=== PATIENT | male | born 1985 | race Two or more races ===

== ENCOUNTER 2017-06-05 12:36 | Inpatient (IN) | payer MEDICAID, OTHER ==
[~2017-06-05] VITALS: Ht 182.9 cm; Wt 83.1 kg
[2017-06-05] VITALS (8 sets, daily range): BP systolic 87–114; BP diastolic 54–79
[~2017-06-05 12:36] MED LIST: HYDR-569 PO; LINE600T6 PO; METH-603 PO; SULF1TAB48 PO
[2017-06-05] MEDS ORDERED: piperacillin/tazo 3.375gm/50ml 50 ML IV ONE (12:50)
[2017-06-05] MEDS ORDERED: normal saline 1000ML IV soln IV ONE ×2 (12:50→14:00)
[2017-06-05] MEDS ORDERED: vancomycin/NS 1 GM ADD-VANTAGE 250 ML IV ONE (12:50)
[2017-06-05 13:32] LABS: BASOPHILS % (AUTO) 0 % (0-1); EOSINOPHILS # (AUTO) 0.1 X10'3 (0-0.9); EOSINOPHILS % (AUTO) 0.3 % (0-6); HEMATOCRIT 26.3 % (42.0-52.0); HEMOGLOBIN 8.8 g/dl (14.0-17.9); LYMPHOCYTES % (AUTO) 4.9 % (21-51); MEAN CORPUSCULAR HEMOGLOBIN 28.8 PG (27.0-31.0); MEAN CORPUSCULAR HGB CONC 33.3 % (33.0-36.5); MEAN CORPUSCULAR VOLUME 86.4 FL (78-98); MEAN PLATELET VOLUME 10.8 FL (7.4-10.4); MONOCYTES # (AUTO) 0.1 X10'3 (0-0.9); MONOCYTES % (AUTO) 0.8 % (2-12); NEUTROPHILS # (AUTO) 18.4 X10'3 (1.8-7.7); RED BLOOD COUNT 3.04 X10'6 (4.70-6.10); RED CELL DISTRIBUTION WIDTH 20.3 % (11.5-14.5); WHITE BLOOD COUNT 19.5 X10'3 (4.5-11.0)
[2017-06-05 13:46] LABS: ALANINE AMINOTRANSFERASE 23 U/L (12-78); ALBUMIN 1.4 G/DL (3.4-5.0); ALBUMIN/GLOBULIN RATIO 0.4 (1.1-1.5); ALKALINE PHOSPHATASE 239 IU/L (46-116); ANION GAP 16 (8-16); ASPARTATE AMINO TRANSFERASE 25 U/L (10-37); BILIRUBIN,TOTAL 2.6 MG/DL (0.1-1.0); BLOOD UREA NITROGEN 40 MG/DL (7-18); BUN/CREATININE RATIO 18.4 (5.4-32.0); CALCIUM 6.6 MG/DL (8.5-10.1); CHLORIDE 104 MMOL/L (99-107); CREATININE 2.17 MG/DL (0.60-1.10); GLUCOSE 78 MG/DL (70-104); SODIUM 138 MMOL/L (135-145); TOTAL CARBON DIOXIDE 17.6 MMOL/L (24-32); TOTAL PROTEIN 5.4 G/DL (6.4-8.2); eGFR 36 ML/MIN
[2017-06-05 13:55] LABS: PLATELET COUNT 25 X10'3 (140-440); POTASSIUM 2.4 MMOL/L (3.5-5.1)
[2017-06-05 13:58] LABS: INR 1.4 INR; PARTIAL THROMBOPLASTIN TIME 44 SECONDS (22-32); PROTHROMBIN TIME 14.1 SECONDS (9.0-12.0)
[2017-06-05] MEDS ORDERED: normal saline 1000ML IV soln IVB ONE (14:10)
[2017-06-05 14:48] LABS: ETHANOL < 0.010 GM/DL (0.0-0.010)
[2017-06-05 14:56] LABS: ANISOCYTOSIS 2+; NUCLEATED RED BLOOD CELLS 1 /100WBC (0-0); PLATELET ESTIMATE DECREASED; TOTAL CELLS COUNTED 100; TOXIC GRANULATION 4+; TOXIC VACUOLATION 4+
[2017-06-05 14:58] LABS: BURR CELLS 3+; POIKILOCYTOSIS 2+
[2017-06-05 15:00] LABS: ELLIPTOCYTES 1+; SMUDGE CELLS 2+
[2017-06-05 15:01] LABS: TARGET CELLS 1+
[2017-06-05] MEDS: NORepinephrine 8mg/ 250ml NS 250 ML IV SCH ×2 (15:11→15:51)
[2017-06-05] MEDS: potassium 10mEq/100ml NS w/LIDOcaine (10mg/bag) IV SCH ×2 (15:50→16:20)
[2017-06-05 17:29] LABS: CLARITY,URINE Cloudy (Clear); COLOR,URINE Dark Yellow (Yellow); GLUCOSE, URINE Negative (Neg); KETONES,URINE Trace mg/dl (Neg); LEUKOCYTE ESTERASE ,URINE Small (Neg); NITRITES, URINE Negative (Neg); OCCULT BLOOD,URINE Negative (Neg); PROTEIN,URINE 100 mg/dl (Neg)
[2017-06-05] MEDS ORDERED: BUPR1FIL3 SL (17:29)
[2017-06-05 17:30] LABS: UA COLLECTION TYPE NON-SPECIFIED
[2017-06-05 17:31] LABS: URINE AMPHETAMINE SCREEN POSITIVE (Neg); URINE BARBITUATE SCREEN NEGATIVE (Neg); URINE BENZODIAZEPINES SCREEN NEGATIVE (Neg); URINE CANNABINOID SCREEN NEGATIVE (Neg); URINE COCAINE SCREEN NEGATIVE (Neg); URINE METHADONE SCREEN NEGATIVE (Neg); URINE OPIATE SCREEN POSITIVE (Neg); URINE PHENCYCLIDINE SCREEN NEGATIVE (Neg)
[2017-06-05 17:41] LABS: BACTERIA,URINE NONE SEEN /HPF (Neg); RBC,URINE NONE SEEN /HPF (0-2); SQUAMOUS EPITHELIAL CELL,UR FEW /LPF (FEW)
[2017-06-05] MEDS ORDERED: magnesium Cl slow-release 64mg tablet PO PRN (17:45)
[2017-06-05] MEDS ORDERED: potassium Cl 20 mEq SR tablet PO PRN (17:45)
[2017-06-05] MEDS ORDERED: potassium Cl 40MEQ/250ML bag 250 ML IV PRN ×2 (17:45)
[2017-06-05] MEDS ORDERED: magnesium 4gm in 100ml NS 100 ML IV PRN (17:45)
[2017-06-05] MEDS ORDERED: magnesium 2GM in 50ml NS 50 ML IV PRN (17:45)
[2017-06-05] MEDS ORDERED: vancomycin/NS 1 GM ADD-VANTAGE 250 ML IV SCH (20:00)
[2017-06-05] MEDS: buprenorphine/naloxone 2-0.5mg sublingual tablet SL SCH (20:00)
[2017-06-05] MEDS: hydrocortisone sod succ/PF 100mg/2ml inj. IV SCH (21:28)
[2017-06-06] VITALS (23 sets, daily range): BP systolic 91–142; BP diastolic 46–91
[2017-06-06] MEDS: mag hydrox/Alum hydrox/simeth 30ml oral suspension PO PRN ×3 (00:02→14:55)
[2017-06-06] MEDS ORDERED: vancomycin inj 1,250 MG in normal saline 250ml IV soln 250 ML IV SCH (01:00)
[2017-06-06] MEDS: hydrocortisone sod succ/PF 100mg/2ml inj. IV SCH ×2 (02:09→08:09)
[2017-06-06 04:14] LABS: % IRON SATURATION 21 % (11-46); ALANINE AMINOTRANSFERASE 23 U/L (12-78); ALBUMIN 1.7 G/DL (3.4-5.0); ALBUMIN/GLOBULIN RATIO 0.3 (1.1-1.5); ALKALINE PHOSPHATASE 144 IU/L (46-116); ANION GAP 9 (8-16); ASPARTATE AMINO TRANSFERASE 26 U/L (10-37); BILIRUBIN,TOTAL 2.5 MG/DL (0.1-1.0); BLOOD UREA NITROGEN 35 MG/DL (7-18); BUN/CREATININE RATIO 23.2 (5.4-32.0); CALCIUM 7.1 MG/DL (8.5-10.1); CHLORIDE 104 MMOL/L (99-107); CREATININE 1.51 MG/DL (0.60-1.10); GLUCOSE 131 MG/DL (70-104); IRON 39 UG/DL (53-167); MAGNESIUM 1.6 MG/DL (1.5-2.4); POTASSIUM 3.8 MMOL/L (3.5-5.1); SODIUM 135 MMOL/L (135-145); TOTAL CARBON DIOXIDE 21.9 MMOL/L (24-32); TOTAL IRON BINDING CAPACITY 185 UG/DL (259-388); eGFR 55 ML/MIN
[2017-06-06 04:29] LABS: FERRITIN 263 NG/ML (26-388)
[2017-06-06 05:18] LABS: BASOPHILS # (AUTO) 0.1 X10'3 (0-0.2); BASOPHILS % (AUTO) 0.3 % (0-1); EOSINOPHILS # (AUTO) 0.4 X10'3 (0-0.9); EOSINOPHILS % (AUTO) 1.5 % (0-6); HEMATOCRIT 26.7 % (42.0-52.0); HEMOGLOBIN 8.8 g/dl (14.0-17.9); LYMPHOCYTES # (AUTO) 2.4 X10'3 (1.1-4.8); LYMPHOCYTES % (AUTO) 9.3 % (21-51); MEAN CORPUSCULAR HEMOGLOBIN 28.7 PG (27.0-31.0); MEAN CORPUSCULAR HGB CONC 33.1 % (33.0-36.5); MEAN CORPUSCULAR VOLUME 86.5 FL (78-98); MEAN PLATELET VOLUME 14.2 FL (7.4-10.4); MONOCYTES # (AUTO) 0.4 X10'3 (0-0.9); MONOCYTES % (AUTO) 1.6 % (2-12); NEUTROPHILS # (AUTO) 22.4 X10'3 (1.8-7.7); NEUTROPHILS % (AUTO) 87.3 % (42-75); RED BLOOD COUNT 3.08 X10'6 (4.70-6.10); RED CELL DISTRIBUTION WIDTH 20.6 % (11.5-14.5)
[2017-06-06 05:31] LABS: WHITE BLOOD COUNT 25.7 X10'3 (4.5-11.0)
[2017-06-06 05:32] LABS: PLATELET COUNT 43 X10'3 (140-440)
[2017-06-06 06:30] LABS: ANISOCYTOSIS 3+; HYPOCHROMASIA 1+; MICROCYTOSIS 1+; PLATELET ESTIMATE DECREASED; TOTAL CELLS COUNTED 100
[2017-06-06 06:31] LABS: ELLIPTOCYTES FEW; SMUDGE CELLS 1+; TARGET CELLS 1+
[2017-06-06] MEDS: NORepinephrine 8mg/ 250ml NS 250 ML IV SCH (07:52)
[2017-06-06] MEDS: K, MAG and/or Phos replacement - Verify level? MC SCH (07:54)
[2017-06-06] MEDS: buprenorphine/naloxone 2-0.5mg sublingual tablet SL SCH (08:09)
[2017-06-06] MEDS: piperacillin/tazo 3.375gm/50ml 50 ML IV SCH ×3 (08:58→19:35)
[2017-06-06] MEDS: acetaminophen 325mg tablet PO PRN (09:45)
[2017-06-06] MEDS: lactobacillus rhamnosus 10,000 MMU CELLS/CAPSULE PO SCH (17:14)
[2017-06-07] VITALS (24 sets, daily range): BP systolic 84–164; BP diastolic 42–93
[2017-06-07] MEDS ORDERED: VANCOMYCIN LEVEL IV NR (00:30)
[2017-06-07] MEDS ORDERED: VANCOMYCIN LEVEL IV ONE (00:30)
[2017-06-07] MEDS: piperacillin/tazo 3.375gm/50ml 50 ML IV SCH ×2 (01:37→07:56)
[2017-06-07] MEDS: mag hydrox/Alum hydrox/simeth 30ml oral suspension PO PRN (03:01)
[2017-06-07 03:37] LABS: ALANINE AMINOTRANSFERASE 16 U/L (12-78); ALBUMIN 1.6 G/DL (3.4-5.0); ALBUMIN/GLOBULIN RATIO 0.3 (1.1-1.5); ALKALINE PHOSPHATASE 113 IU/L (46-116); ANION GAP 9 (8-16); ASPARTATE AMINO TRANSFERASE 16 U/L (10-37); BILIRUBIN,TOTAL 1.3 MG/DL (0.1-1.0); BLOOD UREA NITROGEN 34 MG/DL (7-18); BUN/CREATININE RATIO 24.5 (5.4-32.0); CALCIUM 7.3 MG/DL (8.5-10.1); CHLORIDE 103 MMOL/L (99-107); CREATININE 1.39 MG/DL (0.60-1.10); GLUCOSE 121 MG/DL (70-104); MAGNESIUM 1.6 MG/DL (1.5-2.4); POTASSIUM 3.2 MMOL/L (3.5-5.1); SODIUM 136 MMOL/L (135-145); TOTAL CARBON DIOXIDE 24.3 MMOL/L (24-32); TOTAL PROTEIN 6.6 G/DL (6.4-8.2); eGFR 60 ML/MIN
[2017-06-07 03:48] LABS: BASOPHILS # (AUTO) 0.1 X10'3 (0-0.2); BASOPHILS % (AUTO) 0.4 % (0-1); EOSINOPHILS # (AUTO) 0.1 X10'3 (0-0.9); EOSINOPHILS % (AUTO) 0.9 % (0-6); HEMATOCRIT 23.9 % (42.0-52.0); HEMOGLOBIN 7.9 g/dl (14.0-17.9); LYMPHOCYTES # (AUTO) 1.7 X10'3 (1.1-4.8); LYMPHOCYTES % (AUTO) 13.2 % (21-51); MEAN CORPUSCULAR HEMOGLOBIN 28.6 PG (27.0-31.0); MEAN CORPUSCULAR HGB CONC 33.2 % (33.0-36.5); MEAN PLATELET VOLUME 12.7 FL (7.4-10.4); MONOCYTES # (AUTO) 0.3 X10'3 (0-0.9); MONOCYTES % (AUTO) 2.2 % (2-12); NEUTROPHILS # (AUTO) 10.7 X10'3 (1.8-7.7); NEUTROPHILS % (AUTO) 83.3 % (42-75); RED BLOOD COUNT 2.78 X10'6 (4.70-6.10); RED CELL DISTRIBUTION WIDTH 21.3 % (11.5-14.5); WHITE BLOOD COUNT 12.8 X10'3 (4.5-11.0)
[2017-06-07 03:54] LABS: PLATELET COUNT 39 X10'3 (140-440)
[2017-06-07] MEDS: potassium Cl 20 mEq SR tablet PO PRN ×2 (04:02→20:47)
[2017-06-07] MEDS: lactobacillus rhamnosus 10,000 MMU CELLS/CAPSULE PO SCH ×3 (07:56→17:21)
[2017-06-07] MEDS: K, MAG and/or Phos replacement - Verify level? MC SCH (07:57)
[2017-06-07] MEDS: levoFLOXACIN-Levaquin 500mg/D5 100 ML IV SCH (10:26)
[2017-06-07] MEDS: buprenorphine/naloxone 2-0.5mg sublingual tablet SL SCH (13:32)
[2017-06-07 16:15] LABS: CREATININE,URINE RANDOM 63.3 MG/DL
[2017-06-07 16:17] LABS: CLARITY,URINE CLEAR (Clear); COLOR,URINE YELLOW (Yellow); GLUCOSE, URINE NEGATIVE (Neg); KETONES,URINE NEGATIVE (Neg); LEUKOCYTE ESTERASE ,URINE NEGATIVE (Neg); NITRITES, URINE NEGATIVE (Neg); OCCULT BLOOD,URINE SMALL (Neg); PH,URINE 5.5 (4.8-8.0); PROTEIN,URINE NEGATIVE (Neg); UA COLLECTION TYPE NON-SPECIFIED; UROBILINOGEN,URINE 0.2 E.U/dL (0.2-1.0)
[2017-06-07 16:18] LABS: BACTERIA,URINE FEW /HPF (Neg); SQUAMOUS EPITHELIAL CELL,UR FEW /LPF (FEW); WBC,URINE 0-4 /HPF (0-4)
[2017-06-07] MEDS: acetaminophen 325mg tablet PO PRN (16:31)
[2017-06-07 16:44] LABS: UA EOSINOPHILS NO EOS /HPF
[2017-06-07] MEDS ORDERED: ibuprofen tablet 400 MG TABLET PO ONE (17:45)
[2017-06-07] MEDS ORDERED: NORepinephrine 8mg/ 250ml NS 250 ML IV SCH (20:35)
[2017-06-07] MEDS ORDERED: NORepinephrine 8mg/ 250ml NS 250 ML IV ONE (20:35)
[2017-06-08] VITALS (24 sets, daily range): BP systolic 80–133; BP diastolic 39–84
[2017-06-08 03:44] LABS: BASOPHILS # (AUTO) 0.2 X10'3 (0-0.2); BASOPHILS % (AUTO) 0.8 % (0-1); EOSINOPHILS # (AUTO) 0.3 X10'3 (0-0.9); EOSINOPHILS % (AUTO) 1.3 % (0-6); HEMATOCRIT 23.7 % (42.0-52.0); HEMOGLOBIN 7.9 g/dl (14.0-17.9); LYMPHOCYTES # (AUTO) 2.7 X10'3 (1.1-4.8); LYMPHOCYTES % (AUTO) 11.4 % (21-51); MEAN CORPUSCULAR HEMOGLOBIN 28.7 PG (27.0-31.0); MEAN CORPUSCULAR HGB CONC 33.3 % (33.0-36.5); MEAN CORPUSCULAR VOLUME 86.3 FL (78-98); MEAN PLATELET VOLUME 10.9 FL (7.4-10.4); MONOCYTES # (AUTO) 0.6 X10'3 (0-0.9); MONOCYTES % (AUTO) 2.4 % (2-12); NEUTROPHILS % (AUTO) 84.1 % (42-75); RED BLOOD COUNT 2.75 X10'6 (4.70-6.10); RED CELL DISTRIBUTION WIDTH 21.3 % (11.5-14.5); WHITE BLOOD COUNT 23.8 X10'3 (4.5-11.0)
[2017-06-08 03:53] LABS: INR 1.3 INR; PARTIAL THROMBOPLASTIN TIME 34 SECONDS (22-32); PROTHROMBIN TIME 13.1 SECONDS (9.0-12.0)
[2017-06-08 04:10] LABS: PLATELET COUNT 24 X10'3 (140-440)
[2017-06-08 04:13] LABS: ALANINE AMINOTRANSFERASE 16 U/L (12-78); ALBUMIN 1.6 G/DL (3.4-5.0); ALBUMIN/GLOBULIN RATIO 0.3 (1.1-1.5); ALKALINE PHOSPHATASE 148 IU/L (46-116); ANION GAP 9 (8-16); ASPARTATE AMINO TRANSFERASE 24 U/L (10-37); BILIRUBIN,TOTAL 1.4 MG/DL (0.1-1.0); BLOOD UREA NITROGEN 33 MG/DL (7-18); BUN/CREATININE RATIO 19.9 (5.4-32.0); CALCIUM 7.5 MG/DL (8.5-10.1); CHLORIDE 103 MMOL/L (99-107); CREATININE 1.66 MG/DL (0.60-1.10); GLUCOSE 122 MG/DL (70-104); PHOSPHORUS 2.7 MG/DL (2.3-4.5); SODIUM 135 MMOL/L (135-145); TOTAL CARBON DIOXIDE 22.6 MMOL/L (24-32); TOTAL PROTEIN 6.8 G/DL (6.4-8.2); eGFR 49 ML/MIN
[2017-06-08] MEDS: K, MAG and/or Phos replacement - Verify level? MC SCH (08:00)
[2017-06-08] MEDS: levoFLOXACIN-Levaquin 500mg/D5 100 ML IV SCH (08:15)
[2017-06-08] MEDS: lactobacillus rhamnosus 10,000 MMU CELLS/CAPSULE PO SCH (08:15)
[2017-06-08 10:27] LABS: ANISOCYTOSIS 3+; PLATELET ESTIMATE DECREASED; TOTAL CELLS COUNTED 100
[2017-06-08 10:28] LABS: ACANTHOCYTES FEW
[2017-06-08] MEDS: CefTRIAXone 2gm/NS 100ml IVPB 100 ML IV SCH (11:58)
[2017-06-08] MEDS: buprenorphine/naloxone 2-0.5mg sublingual tablet SL SCH (12:04)
[2017-06-08] MEDS: acetaminophen 325mg tablet PO PRN (13:19)
[2017-06-08] MEDS ORDERED: ondansetron/PF 4mg/2ml inj ONE (14:47)
[2017-06-08] MEDS: mag hydrox/Alum hydrox/simeth 30ml oral suspension PO PRN (20:50)
[2017-06-09] VITALS (16 sets, daily range): BP systolic 99–137; BP diastolic 55–80
[2017-06-09 04:52] LABS: BASOPHILS % (AUTO) 0.2 % (0-1); EOSINOPHILS # (AUTO) 0.3 X10'3 (0-0.9); EOSINOPHILS % (AUTO) 1.8 % (0-6); HEMOGLOBIN 7.2 g/dl (14.0-17.9); LYMPHOCYTES # (AUTO) 2.5 X10'3 (1.1-4.8); MEAN CORPUSCULAR HEMOGLOBIN 28.3 PG (27.0-31.0); MEAN CORPUSCULAR VOLUME 85.7 FL (78-98); MEAN PLATELET VOLUME 11.6 FL (7.4-10.4); MONOCYTES # (AUTO) 0.4 X10'3 (0-0.9); MONOCYTES % (AUTO) 2.5 % (2-12); NEUTROPHILS # (AUTO) 13.5 X10'3 (1.8-7.7); NEUTROPHILS % (AUTO) 80.5 % (42-75); RED BLOOD COUNT 2.55 X10'6 (4.70-6.10); RED CELL DISTRIBUTION WIDTH 21.5 % (11.5-14.5); WHITE BLOOD COUNT 16.8 X10'3 (4.5-11.0)
[2017-06-09 05:10] LABS: INR 1.3 INR; PARTIAL THROMBOPLASTIN TIME 34 SECONDS (22-32); PROTHROMBIN TIME 13.1 SECONDS (9.0-12.0)
[2017-06-09 05:21] LABS: HEMATOCRIT 21.9 % (42.0-52.0); PLATELET COUNT 16 X10'3 (140-440)
[2017-06-09 05:34] LABS: ALANINE AMINOTRANSFERASE 18 U/L (12-78); ALBUMIN 1.6 G/DL (3.4-5.0); ALBUMIN/GLOBULIN RATIO 0.3 (1.1-1.5); ALKALINE PHOSPHATASE 125 IU/L (46-116); ANION GAP 9 (8-16); ASPARTATE AMINO TRANSFERASE 27 U/L (10-37); BILIRUBIN,TOTAL 1.1 MG/DL (0.1-1.0); BLOOD UREA NITROGEN 29 MG/DL (7-18); BUN/CREATININE RATIO 23.8 (5.4-32.0); CALCIUM 7.8 MG/DL (8.5-10.1); CHLORIDE 103 MMOL/L (99-107); CREATININE 1.22 MG/DL (0.60-1.10); GLUCOSE 107 MG/DL (70-104); MAGNESIUM 1.4 MG/DL (1.5-2.4); PHOSPHORUS 4.3 MG/DL (2.3-4.5); POTASSIUM 3.7 MMOL/L (3.5-5.1); SODIUM 137 MMOL/L (135-145); TOTAL CARBON DIOXIDE 25.1 MMOL/L (24-32); TOTAL PROTEIN 6.9 G/DL (6.4-8.2); eGFR 70 ML/MIN
[2017-06-09] MEDS: K, MAG and/or Phos replacement - Verify level? MC SCH (08:00)
[2017-06-09] MEDS: lactobacillus rhamnosus 10,000 MMU CELLS/CAPSULE PO SCH ×2 (08:00→16:36)
[2017-06-09] MEDS: CefTRIAXone 2gm/NS 100ml IVPB 100 ML IV SCH (08:00)
[2017-06-09] MEDS: levoFLOXACIN-Levaquin 500mg/D5 100 ML IV SCH (08:00)
[2017-06-09] MEDS: buprenorphine/naloxone 2-0.5mg sublingual tablet SL SCH (09:25)
[2017-06-09 09:57] LABS: TOTAL CELLS COUNTED 100
[2017-06-09 09:58] LABS: ANISOCYTOSIS 3+; PLATELET ESTIMATE DECREASED
[2017-06-09 09:59] LABS: HYPOCHROMASIA 1+; TOXIC GRANULATION 1+
[2017-06-09 10:00] LABS: SMUDGE CELLS 2+
[2017-06-09] MEDS: mag hydrox/Alum hydrox/simeth 30ml oral suspension PO PRN (21:56)
[2017-06-10] MEDS: acetaminophen 325mg tablet PO PRN (02:35)
[2017-06-10 03:00] VITALS: BP 123/74
[2017-06-10] MEDS ORDERED: acetaminophen 325mg tablet PO ONE (03:15)
[2017-06-10 06:30] VITALS: BP 95/48
[2017-06-10] MEDS: K, MAG and/or Phos replacement - Verify level? MC SCH (07:12)
[2017-06-10] MEDS ORDERED: fluconazole/NS 400mg/200ml bag 200 ML IV SCH (08:00)
[2017-06-10] MEDS: buprenorphine/naloxone 2-0.5mg sublingual tablet SL SCH (08:28)
[2017-06-10] MEDS: lactobacillus rhamnosus 10,000 MMU CELLS/CAPSULE PO SCH ×2 (08:28→15:15)
[2017-06-10] MEDS: levoFLOXACIN-Levaquin 500mg/D5 100 ML IV SCH (08:29)
[2017-06-10] MEDS: CefTRIAXone 2gm/NS 100ml IVPB 100 ML IV SCH (08:29)
[2017-06-10 08:51] LABS: BASOPHILS # (AUTO) 0.1 X10'3 (0-0.2); BASOPHILS % (AUTO) 0.8 % (0-1); EOSINOPHILS # (AUTO) 0.2 X10'3 (0-0.9); EOSINOPHILS % (AUTO) 1.2 % (0-6); LYMPHOCYTES # (AUTO) 1.7 X10'3 (1.1-4.8); LYMPHOCYTES % (AUTO) 13.1 % (21-51); MEAN CORPUSCULAR HEMOGLOBIN 28.8 PG (27.0-31.0); MEAN CORPUSCULAR HGB CONC 33.3 % (33.0-36.5); MEAN CORPUSCULAR VOLUME 86.3 FL (78-98); MEAN PLATELET VOLUME 12.2 FL (7.4-10.4); MONOCYTES # (AUTO) 0.4 X10'3 (0-0.9); MONOCYTES % (AUTO) 2.8 % (2-12); NEUTROPHILS # (AUTO) 10.6 X10'3 (1.8-7.7); NEUTROPHILS % (AUTO) 82.1 % (42-75); RED BLOOD COUNT 2.42 X10'6 (4.70-6.10); RED CELL DISTRIBUTION WIDTH 22.5 % (11.5-14.5); WHITE BLOOD COUNT 12.9 X10'3 (4.5-11.0)
[2017-06-10 09:03] LABS: INR 1.3 INR; PROTHROMBIN TIME 12.9 SECONDS (9.0-12.0)
[2017-06-10 09:14] LABS: ALANINE AMINOTRANSFERASE 15 U/L (12-78); ALBUMIN 1.6 G/DL (3.4-5.0); ALBUMIN/GLOBULIN RATIO 0.3 (1.1-1.5); ALKALINE PHOSPHATASE 85 IU/L (46-116); ANION GAP 6 (8-16); ASPARTATE AMINO TRANSFERASE 15 U/L (10-37); BILIRUBIN,TOTAL 1.3 MG/DL (0.1-1.0); BLOOD UREA NITROGEN 20 MG/DL (7-18); BUN/CREATININE RATIO 17.7 (5.4-32.0); CALCIUM 7.3 MG/DL (8.5-10.1); CHLORIDE 102 MMOL/L (99-107); CREATININE 1.13 MG/DL (0.60-1.10); GLUCOSE 126 MG/DL (70-104); POTASSIUM 4.2 MMOL/L (3.5-5.1); SODIUM 134 MMOL/L (135-145); TOTAL PROTEIN 6.8 G/DL (6.4-8.2); eGFR 77 ML/MIN
[2017-06-10 09:15] LABS: HEMATOCRIT 20.9 % (42.0-52.0)
[2017-06-10 09:16] LABS: PLATELET COUNT 34 X10'3 (140-440)
[2017-06-10 12:59] VITALS: BP 97/57
[2017-06-10 16:20] VITALS: BP 105/53
[2017-06-10 19:00] VITALS: BP 121/71
[2017-06-10] MEDS: mag hydrox/Alum hydrox/simeth 30ml oral suspension PO PRN (19:40)
[2017-06-10 23:00] VITALS: BP 125/73
[2017-06-11] MEDS: mag hydrox/Alum hydrox/simeth 30ml oral suspension PO PRN ×2 (01:53→22:12)
[2017-06-11 03:00] VITALS: BP 122/56
[2017-06-11 06:00] VITALS: BP 95/54
[2017-06-11 06:15] LABS: BASOPHILS % (AUTO) 0.3 % (0-1); EOSINOPHILS # (AUTO) 0.2 X10'3 (0-0.9); EOSINOPHILS % (AUTO) 1.5 % (0-6); HEMOGLOBIN 8.1 g/dl (14.0-17.9); LYMPHOCYTES # (AUTO) 1.2 X10'3 (1.1-4.8); LYMPHOCYTES % (AUTO) 8.9 % (21-51); MEAN CORPUSCULAR HEMOGLOBIN 28.8 PG (27.0-31.0); MEAN CORPUSCULAR HGB CONC 33.5 % (33.0-36.5); MONOCYTES # (AUTO) 0.5 X10'3 (0-0.9); MONOCYTES % (AUTO) 3.5 % (2-12); NEUTROPHILS # (AUTO) 11.7 X10'3 (1.8-7.7); NEUTROPHILS % (AUTO) 85.8 % (42-75); RED CELL DISTRIBUTION WIDTH 22.4 % (11.5-14.5); WHITE BLOOD COUNT 13.6 X10'3 (4.5-11.0)
[2017-06-11 06:25] LABS: PLATELET COUNT 39 X10'3 (140-440)
[2017-06-11 06:26] LABS: ALBUMIN 1.8 G/DL (3.4-5.0); ANION GAP 7 (8-16); BLOOD UREA NITROGEN 17 MG/DL (7-18); BUN/CREATININE RATIO 14.5 (5.4-32.0); CALCIUM 7.4 MG/DL (8.5-10.1); CHLORIDE 98 MMOL/L (99-107); CREATININE 1.17 MG/DL (0.60-1.10); GLUCOSE 91 MG/DL (70-104); POTASSIUM 4.5 MMOL/L (3.5-5.1); SODIUM 129 MMOL/L (135-145); TOTAL CARBON DIOXIDE 24.3 MMOL/L (24-32); eGFR 74 ML/MIN
[2017-06-11] MEDS: CefTRIAXone 2gm/NS 100ml IVPB 100 ML IV SCH (08:00)
[2017-06-11] MEDS: K, MAG and/or Phos replacement - Verify level? MC SCH (08:00)
[2017-06-11] MEDS: levoFLOXACIN-Levaquin 500mg/D5 100 ML IV SCH (08:06)
[2017-06-11] MEDS: buprenorphine/naloxone 2-0.5mg sublingual tablet SL SCH (08:07)
[2017-06-11] MEDS: lactobacillus rhamnosus 10,000 MMU CELLS/CAPSULE PO SCH ×2 (08:07→17:41)
[2017-06-11] MEDS ORDERED: CefTRIAXone/dextrose 2GM bag 50 ML IV ONE ×2 (09:03→10:20)
[2017-06-11 09:12] LABS: COMPLEMENT C3, SERUM 75 mg/dL (82-167); COMPLEMENT C4, SERUM 7 mg/dL (14-44)
[2017-06-11 09:35] LABS: ANISOCYTOSIS 3+; PLATELET ESTIMATE DECREASED
[2017-06-11 09:36] LABS: ELLIPTOCYTES FEW; HYPOCHROMASIA 1+
[2017-06-11 09:37] LABS: SCHISTOCYTES FEW
[2017-06-11 11:00] VITALS: BP 110/58
[2017-06-11] MEDS: micafungin inj 150 MG in normal saline 100ml IV soln 100 ML IV SCH (11:36)
[2017-06-11 15:00] VITALS: BP 109/58
[2017-06-11 19:00] VITALS: BP 107/62
[2017-06-11] MEDS ORDERED: magnesium 2GM in 50ml NS 50 ML IV PRN (21:05)
[2017-06-11] MEDS ORDERED: magnesium 4gm in 100ml NS 100 ML IV PRN (21:05)
[2017-06-11] MEDS ORDERED: magnesium Cl slow-release 64mg tablet PO PRN (21:05)
[2017-06-11 23:00] VITALS: BP 105/69
[2017-06-12 04:07] VITALS: BP 124/61
[2017-06-12 06:00] VITALS: BP 117/58
[2017-06-12] MEDS: lactobacillus rhamnosus 10,000 MMU CELLS/CAPSULE PO SCH ×2 (07:48→08:29)
[2017-06-12] MEDS: CefTRIAXone 2gm/NS 100ml IVPB 100 ML IV SCH (08:00)
[2017-06-12] MEDS: K, MAG and/or Phos replacement - Verify level? MC SCH (08:00)
[2017-06-12] MEDS: buprenorphine/naloxone 2-0.5mg sublingual tablet SL SCH (08:28)
[2017-06-12] MEDS: levoFLOXACIN-Levaquin 500mg/D5 100 ML IV SCH (08:29)
[2017-06-12] MEDS: vancomycin/NS 1 GM ADD-VANTAGE 250 ML IV SCH ×4 (08:40→15:06)
[2017-06-12] MEDS ORDERED: CefTRIAXone 2gm/D5W 50ml ADVTG 50 ML IV ONE (09:04)
[2017-06-12 11:00] VITALS: BP 133/66
[2017-06-12] MEDS: micafungin inj 150 MG in normal saline 100ml IV soln 100 ML IV SCH (12:05)
[2017-06-12 15:00] VITALS: BP 114/56
[2017-06-12] MEDS: ondansetron/PF 4mg/2ml inj IV PRN (16:31)
[2017-06-12] MEDS ORDERED: vancomycin inj 1,250 MG in normal saline 250ml IV soln 250 ML IV SCH (18:00)
[2017-06-12 19:00] VITALS: BP 113/66
[2017-06-12] MEDS: acetaminophen 325mg tablet PO PRN (19:16)
[2017-06-12] MEDS: vancomycin inj 1,250 MG in normal saline 250ml IV soln 250 ML IV SCH (22:00)
[2017-06-12 23:00] VITALS: BP 120/69
[2017-06-13] MEDS: mag hydrox/Alum hydrox/simeth 30ml oral suspension PO PRN ×4 (01:55→21:36)
[2017-06-13 06:00] VITALS: BP 112/61
[2017-06-13 06:03] LABS: BASOPHILS # (AUTO) 0.1 X10'3 (0-0.2); BASOPHILS % (AUTO) 0.9 % (0-1); EOSINOPHILS # (AUTO) 0.2 X10'3 (0-0.9); EOSINOPHILS % (AUTO) 1.6 % (0-6); HEMATOCRIT 26.6 % (42.0-52.0); HEMOGLOBIN 8.8 g/dl (14.0-17.9); LYMPHOCYTES # (AUTO) 1.8 X10'3 (1.1-4.8); LYMPHOCYTES % (AUTO) 16.7 % (21-51); MEAN CORPUSCULAR HEMOGLOBIN 28.6 PG (27.0-31.0); MEAN CORPUSCULAR HGB CONC 33.2 % (33.0-36.5); MEAN CORPUSCULAR VOLUME 86.3 FL (78-98); MEAN PLATELET VOLUME 12.2 FL (7.4-10.4); MONOCYTES # (AUTO) 1.3 X10'3 (0-0.9); MONOCYTES % (AUTO) 11.3 % (2-12); NEUTROPHILS # (AUTO) 7.7 X10'3 (1.8-7.7); NEUTROPHILS % (AUTO) 69.5 % (42-75); PLATELET COUNT 70 X10'3 (140-440); RED BLOOD COUNT 3.09 X10'6 (4.70-6.10); RED CELL DISTRIBUTION WIDTH 21.9 % (11.5-14.5); WHITE BLOOD COUNT 11.1 X10'3 (4.5-11.0)
[2017-06-13] MEDS: vancomycin inj 1,250 MG in normal saline 250ml IV soln 250 ML IV SCH ×2 (06:24→14:05)
[2017-06-13 06:50] LABS: ALANINE AMINOTRANSFERASE 24 U/L (12-78); ALBUMIN 1.9 G/DL (3.4-5.0); ALBUMIN/GLOBULIN RATIO 0.3 (1.1-1.5); ALKALINE PHOSPHATASE 137 IU/L (46-116); ANION GAP 9 (8-16); ASPARTATE AMINO TRANSFERASE 45 U/L (10-37); BILIRUBIN,TOTAL 0.9 MG/DL (0.1-1.0); BLOOD UREA NITROGEN 18 MG/DL (7-18); BUN/CREATININE RATIO 17.1 (5.4-32.0); CALCIUM 7.7 MG/DL (8.5-10.1); CHLORIDE 98 MMOL/L (99-107); CREATININE 1.05 MG/DL (0.60-1.10); GLUCOSE 104 MG/DL (70-104); POTASSIUM 4.3 MMOL/L (3.5-5.1); SODIUM 131 MMOL/L (135-145); TOTAL CARBON DIOXIDE 23.6 MMOL/L (24-32); TOTAL PROTEIN 8.9 G/DL (6.4-8.2); eGFR 84 ML/MIN
[2017-06-13] MEDS: levoFLOXACIN-Levaquin 500mg/D5 100 ML IV SCH (07:05)
[2017-06-13] MEDS: LACTOBACILLUS RHAMNOSUS GG 15 billion unit sprinkle caps PO SCH (07:05)
[2017-06-13] MEDS: buprenorphine/naloxone 2-0.5mg sublingual tablet SL SCH (07:10)
[2017-06-13] MEDS: K, MAG and/or Phos replacement - Verify level? MC SCH (08:00)
[2017-06-13 08:05] LABS: ANISOCYTOSIS 3+; HYPOCHROMASIA 2+; LARGE PLATELETS FEW; PLATELET ESTIMATE DECREASED; POLYCHROMASIA 1+; TARGET CELLS 2+
[2017-06-13] MEDS: CefTRIAXone 2gm/D5W 50ml ADVTG 50 ML IV SCH (08:21)
[2017-06-13] MEDS: micafungin inj 150 MG in normal saline 100ml IV soln 100 ML IV SCH (09:23)
[2017-06-13] MEDS ORDERED: VANCOMYCIN LEVEL IV ONE ×2 (09:30→13:30)
[2017-06-13 11:00] VITALS: BP 111/59
[2017-06-13 15:00] VITALS: BP 118/77
[2017-06-13 19:00] VITALS: BP 113/67
[2017-06-13 23:00] VITALS: BP 111/70
[2017-06-14 03:00] VITALS: BP 109/66
[2017-06-14 06:00] VITALS: BP 117/74
[2017-06-14] MEDS: K, MAG and/or Phos replacement - Verify level? MC SCH (08:00)
[2017-06-14] MEDS: LACTOBACILLUS RHAMNOSUS GG 15 billion unit sprinkle caps PO SCH (08:28)
[2017-06-14] MEDS: CefTRIAXone 2gm/D5W 50ml ADVTG 50 ML IV SCH (08:28)
[2017-06-14] MEDS: levoFLOXACIN-Levaquin 500mg/D5 100 ML IV SCH (08:28)
[2017-06-14] MEDS: buprenorphine/naloxone 2-0.5mg sublingual tablet SL SCH (08:28)
[2017-06-14] MEDS: micafungin inj 150 MG in normal saline 100ml IV soln 100 ML IV SCH (10:38)
[2017-06-14 11:00] VITALS: BP 118/63
[2017-06-14] MEDS ORDERED: VANCOMYCIN LEVEL IV ONE ×2 (13:30→21:30)
[2017-06-14 15:00] VITALS: BP 104/54
[2017-06-14 19:00] VITALS: BP 117/69
[2017-06-14 23:00] VITALS: BP 116/64
[2017-06-14] MEDS: acetaminophen 325mg tablet PO PRN (23:13)
[2017-06-15 03:00] VITALS: BP 111/62
[2017-06-15 06:00] VITALS: BP 101/65
[2017-06-15 06:12] LABS: BASOPHILS % (AUTO) 0.4 % (0-1); EOSINOPHILS # (AUTO) 0.1 X10'3 (0-0.9); HEMATOCRIT 25.9 % (42.0-52.0); HEMOGLOBIN 8.6 g/dl (14.0-17.9); LYMPHOCYTES # (AUTO) 2.2 X10'3 (1.1-4.8); LYMPHOCYTES % (AUTO) 19.6 % (21-51); MEAN CORPUSCULAR HEMOGLOBIN 28.2 PG (27.0-31.0); MEAN CORPUSCULAR HGB CONC 33.1 % (33.0-36.5); MEAN CORPUSCULAR VOLUME 85.3 FL (78-98); MEAN PLATELET VOLUME 10.5 FL (7.4-10.4); MONOCYTES # (AUTO) 0.7 X10'3 (0-0.9); MONOCYTES % (AUTO) 6.5 % (2-12); NEUTROPHILS # (AUTO) 8.2 X10'3 (1.8-7.7); NEUTROPHILS % (AUTO) 72.5 % (42-75); PLATELET COUNT 80 X10'3 (140-440); RED BLOOD COUNT 3.03 X10'6 (4.70-6.10); RED CELL DISTRIBUTION WIDTH 21.6 % (11.5-14.5); WHITE BLOOD COUNT 11.3 X10'3 (4.5-11.0)
[2017-06-15 06:38] LABS: ALBUMIN 1.8 G/DL (3.4-5.0); ANION GAP 4 (8-16); BLOOD UREA NITROGEN 14 MG/DL (7-18); BUN/CREATININE RATIO 15.4 (5.4-32.0); CALCIUM 7.7 MG/DL (8.5-10.1); CHLORIDE 98 MMOL/L (99-107); CREATININE 0.91 MG/DL (0.60-1.10); GLUCOSE 129 MG/DL (70-104); POTASSIUM 3.5 MMOL/L (3.5-5.1); SODIUM 129 MMOL/L (135-145); TOTAL CARBON DIOXIDE 26.8 MMOL/L (24-32); eGFR > 90 ML/MIN
[2017-06-15] MEDS: K, MAG and/or Phos replacement - Verify level? MC SCH (08:00)
[2017-06-15] MEDS: LACTOBACILLUS RHAMNOSUS GG 15 billion unit sprinkle caps PO SCH (08:36)
[2017-06-15] MEDS: buprenorphine/naloxone 2-0.5mg sublingual tablet SL SCH (08:38)
[2017-06-15] MEDS: CefTRIAXone 2gm/D5W 50ml ADVTG 50 ML IV SCH (08:42)
[2017-06-15] MEDS: levoFLOXACIN-Levaquin 500mg/D5 100 ML IV SCH (09:55)
[2017-06-15 11:00] VITALS: BP 108/55
[2017-06-15] MEDS: micafungin inj 150 MG in normal saline 100ml IV soln 100 ML IV SCH (11:00)
[2017-06-15 15:00] VITALS: BP 100/54
[2017-06-15] MEDS: acetaminophen 325mg tablet PO PRN (19:02)
[2017-06-15 19:46] VITALS: BP 118/59
[2017-06-15 21:11] VITALS: BP 105/57
[2017-06-16 02:00] VITALS: BP 103/62
[2017-06-16 05:44] LABS: BASOPHILS # (AUTO) 0.1 X10'3 (0-0.2); BASOPHILS % (AUTO) 0.6 % (0-1); EOSINOPHILS # (AUTO) 0.2 X10'3 (0-0.9); EOSINOPHILS % (AUTO) 1.6 % (0-6); HEMATOCRIT 22.3 % (42.0-52.0); HEMOGLOBIN 7.3 g/dl (14.0-17.9); LYMPHOCYTES # (AUTO) 1.8 X10'3 (1.1-4.8); LYMPHOCYTES % (AUTO) 15.6 % (21-51); MEAN CORPUSCULAR HGB CONC 32.6 % (33.0-36.5); MEAN CORPUSCULAR VOLUME 85.7 FL (78-98); MEAN PLATELET VOLUME 10.1 FL (7.4-10.4); MONOCYTES # (AUTO) 0.8 X10'3 (0-0.9); MONOCYTES % (AUTO) 7.4 % (2-12); NEUTROPHILS # (AUTO) 8.6 X10'3 (1.8-7.7); NEUTROPHILS % (AUTO) 74.8 % (42-75); PLATELET COUNT 87 X10'3 (140-440); RED CELL DISTRIBUTION WIDTH 21.6 % (11.5-14.5); WHITE BLOOD COUNT 11.5 X10'3 (4.5-11.0)
[2017-06-16 06:00] VITALS: BP 117/62
[2017-06-16] MEDS: CefTRIAXone 2gm/D5W 50ml ADVTG 50 ML IV SCH (07:07)
[2017-06-16] MEDS: LACTOBACILLUS RHAMNOSUS GG 15 billion unit sprinkle caps PO SCH (07:52)
[2017-06-16] MEDS: buprenorphine/naloxone 2-0.5mg sublingual tablet SL SCH (07:52)
[2017-06-16] MEDS: levoFLOXACIN-Levaquin 500mg/D5 100 ML IV SCH (07:52)
[2017-06-16] MEDS: potassium Cl 20 mEq SR tablet PO PRN ×3 (07:53→18:45)
[2017-06-16] MEDS: K, MAG and/or Phos replacement - Verify level? MC SCH (07:54)
[2017-06-16] MEDS: micafungin inj 150 MG in normal saline 100ml IV soln 100 ML IV SCH (08:52)
[2017-06-16] MEDS: levoFLOXACIN 750MG TABLET PO SCH (09:12)
[2017-06-16 11:00] VITALS: BP 105/60
[2017-06-16 15:00] VITALS: BP 113/62
[2017-06-16 18:00] VITALS: BP 116/54
[2017-06-16] MEDS: acetaminophen 325mg tablet PO PRN (18:48)
[2017-06-16 22:00] VITALS: BP 104/61
[2017-06-17] MEDS: acetaminophen 325mg tablet PO PRN ×2 (00:33→23:58)
[2017-06-17 03:37] VITALS: BP 115/58
[2017-06-17] MEDS ORDERED: ibuprofen tablet 400 MG TABLET PO ONE (03:45)
[2017-06-17 07:00] VITALS: BP 108/62
[2017-06-17] MEDS: LACTOBACILLUS RHAMNOSUS GG 15 billion unit sprinkle caps PO SCH (07:51)
[2017-06-17] MEDS: buprenorphine/naloxone 2-0.5mg sublingual tablet SL SCH (07:51)
[2017-06-17] MEDS: CefTRIAXone 2gm/D5W 50ml ADVTG 50 ML IV SCH (07:52)
[2017-06-17] MEDS: K, MAG and/or Phos replacement - Verify level? MC SCH (08:00)
[2017-06-17] MEDS: micafungin inj 150 MG in normal saline 100ml IV soln 100 ML IV SCH (10:04)
[2017-06-17 11:00] VITALS: BP 107/59
[2017-06-17] MEDS: levoFLOXACIN 750MG TABLET PO SCH (11:17)
[2017-06-17 15:00] VITALS: BP 115/64
[2017-06-17 18:00] VITALS: BP 124/74
[2017-06-17 22:00] VITALS: BP 101/51
[2017-06-18] VITALS (10 sets, daily range): BP systolic 101–130; BP diastolic 54–72
[2017-06-18 06:44] LABS: BASOPHILS # (AUTO) 0.1 X10'3 (0-0.2); BASOPHILS % (AUTO) 1.7 % (0-1); EOSINOPHILS # (AUTO) 0.1 X10'3 (0-0.9); EOSINOPHILS % (AUTO) 1.3 % (0-6); LYMPHOCYTES # (AUTO) 1.6 X10'3 (1.1-4.8); LYMPHOCYTES % (AUTO) 18.9 % (21-51); MEAN CORPUSCULAR HEMOGLOBIN 28.2 PG (27.0-31.0); MEAN CORPUSCULAR HGB CONC 33.5 % (33.0-36.5); MEAN CORPUSCULAR VOLUME 84.1 FL (78-98); MEAN PLATELET VOLUME 10.3 FL (7.4-10.4); MONOCYTES # (AUTO) 0.5 X10'3 (0-0.9); MONOCYTES % (AUTO) 6.5 % (2-12); NEUTROPHILS % (AUTO) 71.6 % (42-75); PLATELET COUNT 128 X10'3 (140-440); RED BLOOD COUNT 2.35 X10'6 (4.70-6.10); RED CELL DISTRIBUTION WIDTH 21.6 % (11.5-14.5); WHITE BLOOD COUNT 8.4 X10'3 (4.5-11.0)
[2017-06-18 06:49] LABS: HEMATOCRIT 19.7 % (42.0-52.0); HEMOGLOBIN 6.6 g/dl (14.0-17.9)
[2017-06-18 07:04] LABS: ALBUMIN 1.6 G/DL (3.4-5.0); ANION GAP 6 (8-16); BLOOD UREA NITROGEN 14 MG/DL (7-18); BUN/CREATININE RATIO 15.7 (5.4-32.0); CALCIUM 7.9 MG/DL (8.5-10.1); CHLORIDE 99 MMOL/L (99-107); CREATININE 0.89 MG/DL (0.60-1.10); GLUCOSE 104 MG/DL (70-104); POTASSIUM 3.7 MMOL/L (3.5-5.1); SODIUM 132 MMOL/L (135-145); TOTAL CARBON DIOXIDE 27.2 MMOL/L (24-32); eGFR > 90 ML/MIN
[2017-06-18] MEDS: K, MAG and/or Phos replacement - Verify level? MC SCH (07:36)
[2017-06-18] MEDS: buprenorphine/naloxone 2-0.5mg sublingual tablet SL SCH (07:59)
[2017-06-18] MEDS: LACTOBACILLUS RHAMNOSUS GG 15 billion unit sprinkle caps PO SCH (07:59)
[2017-06-18] MEDS: CefTRIAXone 2gm/D5W 50ml ADVTG 50 ML IV SCH (07:59)
[2017-06-18] MEDS: micafungin inj 150 MG in normal saline 100ml IV soln 100 ML IV SCH (09:26)
[2017-06-18] MEDS: levoFLOXACIN 750MG TABLET PO SCH (12:26)
[2017-06-18 13:32] LABS: RED BLOOD COUNT 2.42 X10'6 (4.70-6.10); RETICULOCYTE % (AUTO) 1.5 % (0.5-1.5)
[2017-06-18] MEDS: acetaminophen 325mg tablet PO PRN (18:26)
[2017-06-18] MEDS ORDERED: acetaminophen 325mg tablet PO ONE (19:50)
[2017-06-18 21:20] LABS: OCCULT BLOOD STOOL NEGATIVE (Neg)
[2017-06-19] VITALS (10 sets, daily range): BP systolic 96–115; BP diastolic 54–72
[2017-06-19 07:01] LABS: BASOPHILS % (AUTO) 0.3 % (0-1); EOSINOPHILS # (AUTO) 0.1 X10'3 (0-0.9); EOSINOPHILS % (AUTO) 1.4 % (0-6); HEMATOCRIT 25.1 % (42.0-52.0); HEMOGLOBIN 8.4 g/dl (14.0-17.9); LYMPHOCYTES # (AUTO) 1.6 X10'3 (1.1-4.8); LYMPHOCYTES % (AUTO) 20.7 % (21-51); MEAN CORPUSCULAR HEMOGLOBIN 28.3 PG (27.0-31.0); MEAN CORPUSCULAR HGB CONC 33.5 % (33.0-36.5); MEAN CORPUSCULAR VOLUME 84.5 FL (78-98); MEAN PLATELET VOLUME 9.2 FL (7.4-10.4); MONOCYTES # (AUTO) 0.6 X10'3 (0-0.9); MONOCYTES % (AUTO) 8.4 % (2-12); NEUTROPHILS # (AUTO) 5.3 X10'3 (1.8-7.7); NEUTROPHILS % (AUTO) 69.2 % (42-75); PLATELET COUNT 132 X10'3 (140-440); RED BLOOD COUNT 2.97 X10'6 (4.70-6.10); RED CELL DISTRIBUTION WIDTH 18.9 % (11.5-14.5); WHITE BLOOD COUNT 7.7 X10'3 (4.5-11.0)
[2017-06-19 07:13] LABS: ALBUMIN 1.7 G/DL (3.4-5.0); ANION GAP 5 (8-16); BLOOD UREA NITROGEN 11 MG/DL (7-18); BUN/CREATININE RATIO 12.6 (5.4-32.0); CALCIUM 7.8 MG/DL (8.5-10.1); CHLORIDE 100 MMOL/L (99-107); CREATININE 0.87 MG/DL (0.60-1.10); GLUCOSE 100 MG/DL (70-104); POTASSIUM 3.7 MMOL/L (3.5-5.1); SODIUM 135 MMOL/L (135-145); TOTAL CARBON DIOXIDE 30.1 MMOL/L (24-32); eGFR > 90 ML/MIN
[2017-06-19] MEDS: LACTOBACILLUS RHAMNOSUS GG 15 billion unit sprinkle caps PO SCH (07:26)
[2017-06-19] MEDS: buprenorphine/naloxone 2-0.5mg sublingual tablet SL SCH (07:26)
[2017-06-19] MEDS: CefTRIAXone 2gm/D5W 50ml ADVTG 50 ML IV SCH (07:27)
[2017-06-19] MEDS: K, MAG and/or Phos replacement - Verify level? MC SCH (08:00)
[2017-06-19] MEDS: micafungin inj 150 MG in normal saline 100ml IV soln 100 ML IV SCH (09:32)
[2017-06-19] MEDS: levoFLOXACIN 750MG TABLET PO SCH (11:25)
[2017-06-19] MEDS: acetaminophen 325mg tablet PO PRN ×2 (11:31→23:01)
[2017-06-19] MEDS: diatr meglu/diatrizoate 30ml oral sol.-(3 dose) bottle PO SCH ×3 (12:01→17:58)
[2017-06-19] MEDS ORDERED: iohexol 300mg/ml 100ml inj. ONE (17:56)
[2017-06-19] MEDS ORDERED: enoxaparin 100mg/ml syringe SUBCUT ONE (19:45)
[2017-06-20 03:00] VITALS: BP 101/53
[2017-06-20 05:54] LABS: BASOPHILS % (AUTO) 0.7 % (0-1); EOSINOPHILS # (AUTO) 0.1 X10'3 (0-0.9); EOSINOPHILS % (AUTO) 1.5 % (0-6); HEMATOCRIT 24.3 % (42.0-52.0); HEMOGLOBIN 8.1 g/dl (14.0-17.9); LYMPHOCYTES # (AUTO) 1.6 X10'3 (1.1-4.8); LYMPHOCYTES % (AUTO) 24.5 % (21-51); MEAN CORPUSCULAR HEMOGLOBIN 28.4 PG (27.0-31.0); MEAN CORPUSCULAR HGB CONC 33.2 % (33.0-36.5); MEAN CORPUSCULAR VOLUME 85.4 FL (78-98); MEAN PLATELET VOLUME 9.6 FL (7.4-10.4); MONOCYTES # (AUTO) 0.6 X10'3 (0-0.9); MONOCYTES % (AUTO) 9.2 % (2-12); NEUTROPHILS # (AUTO) 4.1 X10'3 (1.8-7.7); NEUTROPHILS % (AUTO) 64.1 % (42-75); PLATELET COUNT 149 X10'3 (140-440); RED BLOOD COUNT 2.85 X10'6 (4.70-6.10); RED CELL DISTRIBUTION WIDTH 19.4 % (11.5-14.5); WHITE BLOOD COUNT 6.5 X10'3 (4.5-11.0)
[2017-06-20 06:00] VITALS: BP 146/91
[2017-06-20 06:12] LABS: INR 1.2 INR; PROTHROMBIN TIME 11.9 SECONDS (9.0-12.0)
[2017-06-20 06:32] LABS: ALANINE AMINOTRANSFERASE 27 U/L (12-78); ALBUMIN 1.6 G/DL (3.4-5.0); ALBUMIN/GLOBULIN RATIO 0.3 (1.1-1.5); ALKALINE PHOSPHATASE 96 IU/L (46-116); ANION GAP 6 (8-16); ASPARTATE AMINO TRANSFERASE 23 U/L (10-37); BILIRUBIN,TOTAL 0.4 MG/DL (0.1-1.0); BLOOD UREA NITROGEN 12 MG/DL (7-18); BUN/CREATININE RATIO 13.5 (5.4-32.0); CALCIUM 7.8 MG/DL (8.5-10.1); CHLORIDE 98 MMOL/L (99-107); CREATININE 0.89 MG/DL (0.60-1.10); GLUCOSE 110 MG/DL (70-104); POTASSIUM 3.5 MMOL/L (3.5-5.1); SODIUM 133 MMOL/L (135-145); TOTAL CARBON DIOXIDE 29.5 MMOL/L (24-32); TOTAL PROTEIN 7.8 G/DL (6.4-8.2); eGFR > 90 ML/MIN
[2017-06-20] MEDS: LACTOBACILLUS RHAMNOSUS GG 15 billion unit sprinkle caps PO SCH (07:06)
[2017-06-20] MEDS: buprenorphine/naloxone 2-0.5mg sublingual tablet SL SCH (07:06)
[2017-06-20] MEDS: enoxaparin 30mg/0.3ml syringe SUBCUT SCH ×2 (07:07→07:15)
[2017-06-20] MEDS: CefTRIAXone 2gm/D5W 50ml ADVTG 50 ML IV SCH (07:08)
[2017-06-20] MEDS: enoxaparin 60mg/0.6ml syringe SUBCUT SCH ×2 (07:08→07:15)
[2017-06-20] MEDS: K, MAG and/or Phos replacement - Verify level? MC SCH (07:16)
[2017-06-20] MEDS: micafungin inj 150 MG in normal saline 100ml IV soln 100 ML IV SCH (09:11)
[2017-06-20 11:00] VITALS: BP 120/69
[2017-06-20] MEDS: levoFLOXACIN 750MG TABLET PO SCH (11:08)
[2017-06-20] MEDS: ondansetron/PF 4mg/2ml inj IV PRN (12:18)
[2017-06-20 15:00] VITALS: BP 111/64
[2017-06-20 19:00] VITALS: BP 129/65
[2017-06-20 23:00] VITALS: BP 126/72
[2017-06-21] MEDS: ondansetron/PF 4mg/2ml inj IV PRN (00:15)
[2017-06-21] MEDS: acetaminophen 325mg tablet PO PRN ×3 (02:32→23:16)
[2017-06-21 03:00] VITALS: BP 117/52
[2017-06-21 06:00] VITALS: BP 168/93
[2017-06-21] MEDS ORDERED: CefTRIAXone 2gm/NS 100ml IVPB 100 ML IV ONE (07:37)
[2017-06-21] MEDS: buprenorphine/naloxone 2-0.5mg sublingual tablet SL SCH (07:41)
[2017-06-21] MEDS: LACTOBACILLUS RHAMNOSUS GG 15 billion unit sprinkle caps PO SCH (07:41)
[2017-06-21] MEDS: CefTRIAXone 2gm/D5W 50ml ADVTG 50 ML IV SCH (07:48)
[2017-06-21] MEDS: K, MAG and/or Phos replacement - Verify level? MC SCH (07:49)
[2017-06-21] MEDS: micafungin inj 150 MG in normal saline 100ml IV soln 100 ML IV SCH (09:27)
[2017-06-21] MEDS: mag hydrox/Alum hydrox/simeth 30ml oral suspension PO PRN (10:08)
[2017-06-21 11:00] VITALS: BP 110/66
[2017-06-21] MEDS: levoFLOXACIN 750MG TABLET PO SCH (11:05)
[2017-06-21 15:00] VITALS: BP 113/59
[2017-06-21 19:00] VITALS: BP 122/83
[2017-06-21 23:00] VITALS: BP 111/53
[2017-06-22] VITALS (7 sets, daily range): BP systolic 101–125; BP diastolic 63–71
[2017-06-22] MEDS: acetaminophen 325mg tablet PO PRN ×3 (04:17→20:34)
[2017-06-22] MEDS: LACTOBACILLUS RHAMNOSUS GG 15 billion unit sprinkle caps PO SCH (07:19)
[2017-06-22] MEDS: CefTRIAXone 2gm/D5W 50ml ADVTG 50 ML IV SCH (07:20)
[2017-06-22] MEDS: buprenorphine/naloxone 2-0.5mg sublingual tablet SL SCH (07:25)
[2017-06-22] MEDS: K, MAG and/or Phos replacement - Verify level? MC SCH (08:00)
[2017-06-22] MEDS: micafungin inj 150 MG in normal saline 100ml IV soln 100 ML IV SCH (09:30)
[2017-06-22] MEDS: levoFLOXACIN 750MG TABLET PO SCH (10:08)
[2017-06-23 02:00] VITALS: BP 106/59
[2017-06-23] MEDS: buprenorphine/naloxone 2-0.5mg sublingual tablet SL SCH (07:27)
[2017-06-23] MEDS: acetaminophen 325mg tablet PO PRN ×2 (07:28→21:30)
[2017-06-23] MEDS: CefTRIAXone 2gm/D5W 50ml ADVTG 50 ML IV SCH (07:28)
[2017-06-23] MEDS: LACTOBACILLUS RHAMNOSUS GG 15 billion unit sprinkle caps PO SCH (07:28)
[2017-06-23] MEDS: micafungin inj 150 MG in normal saline 100ml IV soln 100 ML IV SCH (07:29)
[2017-06-23 07:50] LABS: BASOPHILS # (AUTO) 0.1 X10'3 (0-0.2); BASOPHILS % (AUTO) 0.8 % (0-1); EOSINOPHILS # (AUTO) 0.1 X10'3 (0-0.9); EOSINOPHILS % (AUTO) 1.9 % (0-6); HEMATOCRIT 24.1 % (42.0-52.0); HEMOGLOBIN 7.9 g/dl (14.0-17.9); LYMPHOCYTES # (AUTO) 1.2 X10'3 (1.1-4.8); LYMPHOCYTES % (AUTO) 16.2 % (21-51); MEAN CORPUSCULAR HEMOGLOBIN 27.5 PG (27.0-31.0); MEAN CORPUSCULAR HGB CONC 32.8 % (33.0-36.5); MEAN CORPUSCULAR VOLUME 83.9 FL (78-98); MEAN PLATELET VOLUME 8.6 FL (7.4-10.4); MONOCYTES # (AUTO) 0.7 X10'3 (0-0.9); MONOCYTES % (AUTO) 8.8 % (2-12); NEUTROPHILS # (AUTO) 5.3 X10'3 (1.8-7.7); NEUTROPHILS % (AUTO) 72.3 % (42-75); PLATELET COUNT 176 X10'3 (140-440); RED BLOOD COUNT 2.87 X10'6 (4.70-6.10); RED CELL DISTRIBUTION WIDTH 18.7 % (11.5-14.5); WHITE BLOOD COUNT 7.4 X10'3 (4.5-11.0)
[2017-06-23] MEDS: K, MAG and/or Phos replacement - Verify level? MC SCH (08:00)
[2017-06-23 08:09] LABS: ALANINE AMINOTRANSFERASE 23 U/L (12-78); ALBUMIN 1.6 G/DL (3.4-5.0); ALBUMIN/GLOBULIN RATIO 0.2 (1.1-1.5); ALKALINE PHOSPHATASE 100 IU/L (46-116); ANION GAP 4 (8-16); ASPARTATE AMINO TRANSFERASE 21 U/L (10-37); BILIRUBIN,TOTAL 0.3 MG/DL (0.1-1.0); BLOOD UREA NITROGEN 15 MG/DL (7-18); BUN/CREATININE RATIO 15.6 (5.4-32.0); CALCIUM 7.9 MG/DL (8.5-10.1); CHLORIDE 101 MMOL/L (99-107); CREATININE 0.96 MG/DL (0.60-1.10); GLUCOSE 96 MG/DL (70-104); POTASSIUM 3.7 MMOL/L (3.5-5.1); SODIUM 135 MMOL/L (135-145); TOTAL CARBON DIOXIDE 30.5 MMOL/L (24-32); TOTAL PROTEIN 8.2 G/DL (6.4-8.2); eGFR > 90 ML/MIN
[2017-06-23] MEDS: ondansetron/PF 4mg/2ml inj IV PRN ×2 (08:47→23:19)
[2017-06-23] MEDS: levoFLOXACIN 750MG TABLET PO SCH (11:16)
[2017-06-23 16:38] VITALS: BP 111/77
[2017-06-23 18:00] VITALS: BP 126/88
[2017-06-23 22:00] VITALS: BP 129/73
[2017-06-24 02:00] VITALS: BP 94/54
[2017-06-24] MEDS: mag hydrox/Alum hydrox/simeth 30ml oral suspension PO PRN (03:57)
[2017-06-24 07:00] VITALS: BP 107/71
[2017-06-24] MEDS: LACTOBACILLUS RHAMNOSUS GG 15 billion unit sprinkle caps PO SCH (07:29)
[2017-06-24] MEDS: CefTRIAXone 2gm/D5W 50ml ADVTG 50 ML IV SCH (07:29)
[2017-06-24] MEDS: buprenorphine/naloxone 2-0.5mg sublingual tablet SL SCH (07:29)
[2017-06-24] MEDS: micafungin inj 150 MG in normal saline 100ml IV soln 100 ML IV SCH (07:30)
[2017-06-24] MEDS: K, MAG and/or Phos replacement - Verify level? MC SCH (08:00)
[2017-06-24 08:18] LABS: BASOPHILS # (AUTO) 0.1 X10'3 (0-0.2); BASOPHILS % (AUTO) 0.5 % (0-1); EOSINOPHILS # (AUTO) 0.2 X10'3 (0-0.9); EOSINOPHILS % (AUTO) 1.9 % (0-6); HEMOGLOBIN 7.7 g/dl (14.0-17.9); LYMPHOCYTES # (AUTO) 1.7 X10'3 (1.1-4.8); LYMPHOCYTES % (AUTO) 13.1 % (21-51); MEAN CORPUSCULAR HEMOGLOBIN 27.9 PG (27.0-31.0); MEAN CORPUSCULAR HGB CONC 33.3 % (33.0-36.5); MEAN CORPUSCULAR VOLUME 83.8 FL (78-98); MEAN PLATELET VOLUME 8.8 FL (7.4-10.4); MONOCYTES # (AUTO) 0.8 X10'3 (0-0.9); MONOCYTES % (AUTO) 6.5 % (2-12); NEUTROPHILS # (AUTO) 9.8 X10'3 (1.8-7.7); PLATELET COUNT 179 X10'3 (140-440); RED BLOOD COUNT 2.75 X10'6 (4.70-6.10); RED CELL DISTRIBUTION WIDTH 19.3 % (11.5-14.5); WHITE BLOOD COUNT 12.6 X10'3 (4.5-11.0)
[2017-06-24 08:34] LABS: ALANINE AMINOTRANSFERASE 21 U/L (12-78); ALBUMIN 1.7 G/DL (3.4-5.0); ALBUMIN/GLOBULIN RATIO 0.3 (1.1-1.5); ALKALINE PHOSPHATASE 106 IU/L (46-116); ANION GAP 4 (8-16); ASPARTATE AMINO TRANSFERASE 22 U/L (10-37); BILIRUBIN,TOTAL 0.3 MG/DL (0.1-1.0); BLOOD UREA NITROGEN 17 MG/DL (7-18); CALCIUM 8.2 MG/DL (8.5-10.1); CHLORIDE 101 MMOL/L (99-107); GLUCOSE 97 MG/DL (70-104); POTASSIUM 4.1 MMOL/L (3.5-5.1); SODIUM 134 MMOL/L (135-145); TOTAL CARBON DIOXIDE 29.5 MMOL/L (24-32); eGFR 88 ML/MIN
[2017-06-24 11:49] VITALS: BP 110/70
[2017-06-24] MEDS: levoFLOXACIN 750MG TABLET PO SCH (12:05)
[2017-06-24 15:00] VITALS: BP 119/72
[2017-06-24 18:30] VITALS: BP 117/76
[2017-06-24 22:00] VITALS: BP 116/67
[2017-06-24] MEDS: acetaminophen 325mg tablet PO PRN (22:19)
[2017-06-25 02:00] VITALS: BP 116/73
[2017-06-25] MEDS: acetaminophen 325mg tablet PO PRN (05:09)
[2017-06-25 06:00] VITALS: BP 112/67
[2017-06-25 06:13] LABS: BASOPHILS # (AUTO) 0.1 X10'3 (0-0.2); BASOPHILS % (AUTO) 1.2 % (0-1); EOSINOPHILS # (AUTO) 0.1 X10'3 (0-0.9); EOSINOPHILS % (AUTO) 1.6 % (0-6); HEMATOCRIT 25.6 % (42.0-52.0); HEMOGLOBIN 8.2 g/dl (14.0-17.9); LYMPHOCYTES # (AUTO) 1.5 X10'3 (1.1-4.8); LYMPHOCYTES % (AUTO) 17.3 % (21-51); MEAN CORPUSCULAR HEMOGLOBIN 27.2 PG (27.0-31.0); MEAN CORPUSCULAR HGB CONC 32.2 % (33.0-36.5); MEAN CORPUSCULAR VOLUME 84.4 FL (78-98); MEAN PLATELET VOLUME 8.8 FL (7.4-10.4); MONOCYTES # (AUTO) 0.6 X10'3 (0-0.9); MONOCYTES % (AUTO) 6.6 % (2-12); NEUTROPHILS # (AUTO) 6.3 X10'3 (1.8-7.7); NEUTROPHILS % (AUTO) 73.3 % (42-75); PLATELET COUNT 180 X10'3 (140-440); RED BLOOD COUNT 3.03 X10'6 (4.70-6.10); RED CELL DISTRIBUTION WIDTH 19.3 % (11.5-14.5); WHITE BLOOD COUNT 8.6 X10'3 (4.5-11.0)
[2017-06-25 06:40] LABS: ALANINE AMINOTRANSFERASE 19 U/L (12-78); ALBUMIN 1.7 G/DL (3.4-5.0); ALBUMIN/GLOBULIN RATIO 0.3 (1.1-1.5); ALKALINE PHOSPHATASE 96 IU/L (46-116); ANION GAP 5 (8-16); ASPARTATE AMINO TRANSFERASE 19 U/L (10-37); BILIRUBIN,TOTAL 0.3 MG/DL (0.1-1.0); BLOOD UREA NITROGEN 12 MG/DL (7-18); CALCIUM 7.9 MG/DL (8.5-10.1); CHLORIDE 98 MMOL/L (99-107); GLUCOSE 90 MG/DL (70-104); POTASSIUM 4.1 MMOL/L (3.5-5.1); SODIUM 132 MMOL/L (135-145); TOTAL CARBON DIOXIDE 28.6 MMOL/L (24-32); TOTAL PROTEIN 8.2 G/DL (6.4-8.2); eGFR 88 ML/MIN
[2017-06-25] MEDS: ondansetron/PF 4mg/2ml inj IV PRN (06:40)
[2017-06-25] MEDS ORDERED: CefTRIAXone 2gm/NS 100ml IVPB 100 ML IV ONE (07:40)
[2017-06-25] MEDS: LACTOBACILLUS RHAMNOSUS GG 15 billion unit sprinkle caps PO SCH (07:45)
[2017-06-25] MEDS: buprenorphine/naloxone 2-0.5mg sublingual tablet SL SCH (07:45)
[2017-06-25] MEDS: CefTRIAXone 2gm/D5W 50ml ADVTG 50 ML IV SCH (07:52)
[2017-06-25] MEDS: K, MAG and/or Phos replacement - Verify level? MC SCH (08:00)
[2017-06-25] MEDS: levoFLOXACIN 750MG TABLET PO SCH (10:52)
[2017-06-25 11:00] VITALS: BP 102/63
[2017-06-25 15:00] VITALS: BP 105/57
[2017-06-25 18:30] VITALS: BP 117/70
[2017-06-25 22:00] VITALS: BP 97/63
[2017-06-26 02:00] VITALS: BP 109/65
[2017-06-26 05:30] VITALS: BP 119/69
[2017-06-26 06:49] LABS: BASOPHILS % (AUTO) 0.4 % (0-1); EOSINOPHILS # (AUTO) 0.1 X10'3 (0-0.9); EOSINOPHILS % (AUTO) 1.7 % (0-6); HEMATOCRIT 23.1 % (42.0-52.0); HEMOGLOBIN 7.6 g/dl (14.0-17.9); LYMPHOCYTES # (AUTO) 1.4 X10'3 (1.1-4.8); LYMPHOCYTES % (AUTO) 16.2 % (21-51); MEAN CORPUSCULAR HEMOGLOBIN 27.5 PG (27.0-31.0); MEAN CORPUSCULAR VOLUME 83.3 FL (78-98); MEAN PLATELET VOLUME 8.3 FL (7.4-10.4); MONOCYTES # (AUTO) 0.7 X10'3 (0-0.9); MONOCYTES % (AUTO) 7.9 % (2-12); NEUTROPHILS # (AUTO) 6.3 X10'3 (1.8-7.7); NEUTROPHILS % (AUTO) 73.8 % (42-75); PLATELET COUNT 161 X10'3 (140-440); RED BLOOD COUNT 2.78 X10'6 (4.70-6.10); RED CELL DISTRIBUTION WIDTH 19.2 % (11.5-14.5); WHITE BLOOD COUNT 8.6 X10'3 (4.5-11.0)
[2017-06-26 07:05] LABS: ALANINE AMINOTRANSFERASE 19 U/L (12-78); ALBUMIN 1.7 G/DL (3.4-5.0); ALBUMIN/GLOBULIN RATIO 0.3 (1.1-1.5); ALKALINE PHOSPHATASE 90 IU/L (46-116); ANION GAP 5 (8-16); ASPARTATE AMINO TRANSFERASE 19 U/L (10-37); BILIRUBIN,TOTAL 0.3 MG/DL (0.1-1.0); BLOOD UREA NITROGEN 14 MG/DL (7-18); BUN/CREATININE RATIO 17.5 (5.4-32.0); CHLORIDE 101 MMOL/L (99-107); GLUCOSE 93 MG/DL (70-104); POTASSIUM 4.1 MMOL/L (3.5-5.1); SODIUM 134 MMOL/L (135-145); TOTAL CARBON DIOXIDE 28.3 MMOL/L (24-32); TOTAL PROTEIN 7.9 G/DL (6.4-8.2); eGFR > 90 ML/MIN
[2017-06-26] MEDS: K, MAG and/or Phos replacement - Verify level? MC SCH (08:00)
[2017-06-26] MEDS: levoFLOXACIN 750MG TABLET PO SCH (08:21)
[2017-06-26] MEDS: LACTOBACILLUS RHAMNOSUS GG 15 billion unit sprinkle caps PO SCH (08:21)
[2017-06-26] MEDS: buprenorphine/naloxone 2-0.5mg sublingual tablet SL SCH (08:21)
[2017-06-26] MEDS: CefTRIAXone 2gm/NS 100ml IVPB 100 ML IV SCH (08:21)
[2017-06-26 11:00] VITALS: BP 104/66
[2017-06-26 13:48] LABS: CLARITY,URINE CLEAR (Clear); COLOR,URINE YELLOW (Yellow); GLUCOSE, URINE NEGATIVE (Neg); KETONES,URINE NEGATIVE (Neg); LEUKOCYTE ESTERASE ,URINE NEGATIVE (Neg); NITRITES, URINE NEGATIVE (Neg); OCCULT BLOOD,URINE TRACE-INTACT (Neg); PH,URINE 5.5 (4.8-8.0); PROTEIN,URINE 30 mg/dl (Neg); UROBILINOGEN,URINE 0.2 E.U/dL (0.2-1.0)
[2017-06-26 13:53] LABS: UA COLLECTION TYPE NON-SPECIFIED
[2017-06-26 13:55] LABS: BACTERIA,URINE 1+ /HPF (Neg); HYALINE CASTS 0-3 /LPF (NEGATIVE); SQUAMOUS EPITHELIAL CELL,UR FEW /LPF (FEW)
[2017-06-26 13:56] LABS: COARSE GRANULAR CAST 0-3 /LPF (NEGATIVE); FINE GRANULAR CAST 0-3 /LPF (NEGATIVE); RBC,URINE 0-2 /HPF (0-2); WBC,URINE 0-4 /HPF (0-4); YEAST FEW /HPF (NEGATIVE)
[2017-06-26 15:00] VITALS: BP 105/67
[2017-06-26 18:00] VITALS: BP 120/78
[2017-06-27] VITALS (17 sets, daily range): BP systolic 92–147; BP diastolic 53–83
[2017-06-27 05:49] LABS: ALANINE AMINOTRANSFERASE 18 U/L (12-78); ALBUMIN 1.6 G/DL (3.4-5.0); ALBUMIN/GLOBULIN RATIO 0.3 (1.1-1.5); ALKALINE PHOSPHATASE 95 IU/L (46-116); ANION GAP 6 (8-16); ASPARTATE AMINO TRANSFERASE 20 U/L (10-37); BILIRUBIN,TOTAL 0.2 MG/DL (0.1-1.0); BLOOD UREA NITROGEN 11 MG/DL (7-18); BUN/CREATININE RATIO 12.2 (5.4-32.0); CALCIUM 7.7 MG/DL (8.5-10.1); CHLORIDE 103 MMOL/L (99-107); GLUCOSE 95 MG/DL (70-104); POTASSIUM 3.9 MMOL/L (3.5-5.1); SODIUM 137 MMOL/L (135-145); TOTAL CARBON DIOXIDE 27.9 MMOL/L (24-32); TOTAL PROTEIN 7.6 G/DL (6.4-8.2); eGFR > 90 ML/MIN
[2017-06-27 05:52] LABS: BASOPHILS % (AUTO) 0.5 % (0-1); EOSINOPHILS # (AUTO) 0.1 X10'3 (0-0.9); EOSINOPHILS % (AUTO) 0.6 % (0-6); HEMOGLOBIN 7.3 g/dl (14.0-17.9); LYMPHOCYTES % (AUTO) 21.5 % (21-51); MEAN CORPUSCULAR HEMOGLOBIN 29.2 PG (27.0-31.0); MEAN CORPUSCULAR HGB CONC 35.1 % (33.0-36.5); MEAN CORPUSCULAR VOLUME 83.1 FL (78-98); MONOCYTES # (AUTO) 0.7 X10'3 (0-0.9); MONOCYTES % (AUTO) 7.2 % (2-12); NEUTROPHILS # (AUTO) 6.4 X10'3 (1.8-7.7); NEUTROPHILS % (AUTO) 70.2 % (42-75); PLATELET COUNT 128 X10'3 (140-440); RED CELL DISTRIBUTION WIDTH 18.6 % (11.5-14.5); WHITE BLOOD COUNT 9.2 X10'3 (4.5-11.0)
[2017-06-27 06:08] LABS: HEMATOCRIT 20.8 % (42.0-52.0)
[2017-06-27] MEDS: K, MAG and/or Phos replacement - Verify level? MC SCH (08:00)
[2017-06-27] MEDS: buprenorphine/naloxone 2-0.5mg sublingual tablet SL SCH (08:45)
[2017-06-27] MEDS: LACTOBACILLUS RHAMNOSUS GG 15 billion unit sprinkle caps PO SCH (08:45)
[2017-06-27] MEDS: levoFLOXACIN 750MG TABLET PO SCH (08:45)
[2017-06-27] MEDS: CefTRIAXone 2gm/NS 100ml IVPB 100 ML IV SCH (08:45)
[2017-06-27] MEDS: ondansetron/PF 4mg/2ml inj IV PRN (16:07)
[2017-06-27] MEDS ORDERED: furosemide 20 MG/2 ML vial IV ONE (19:35)
[2017-06-27] MEDS ORDERED: diphenhydrAMINE 25mg capsule PO PRN (19:35)
[2017-06-27] MEDS: acetaminophen 325mg tablet PO PRN (19:55)
[2017-06-28 03:00] VITALS: BP 109/69
[2017-06-28 04:55] LABS: BASOPHILS # (AUTO) 0.1 X10'3 (0-0.2); BASOPHILS % (AUTO) 0.3 % (0-1); EOSINOPHILS # (AUTO) 0.3 X10'3 (0-0.9); EOSINOPHILS % (AUTO) 1.8 % (0-6); HEMATOCRIT 26.6 % (42.0-52.0); HEMOGLOBIN 8.8 g/dl (14.0-17.9); LYMPHOCYTES # (AUTO) 1.8 X10'3 (1.1-4.8); LYMPHOCYTES % (AUTO) 12.6 % (21-51); MEAN CORPUSCULAR HEMOGLOBIN 27.7 PG (27.0-31.0); MEAN CORPUSCULAR HGB CONC 33.1 % (33.0-36.5); MEAN CORPUSCULAR VOLUME 83.6 FL (78-98); MEAN PLATELET VOLUME 8.6 FL (7.4-10.4); MONOCYTES # (AUTO) 0.5 X10'3 (0-0.9); MONOCYTES % (AUTO) 3.4 % (2-12); NEUTROPHILS # (AUTO) 11.9 X10'3 (1.8-7.7); NEUTROPHILS % (AUTO) 81.9 % (42-75); PLATELET COUNT 108 X10'3 (140-440); RED BLOOD COUNT 3.18 X10'6 (4.70-6.10); RED CELL DISTRIBUTION WIDTH 18.5 % (11.5-14.5); WHITE BLOOD COUNT 14.6 X10'3 (4.5-11.0)
[2017-06-28] MEDS: mag hydrox/Alum hydrox/simeth 30ml oral suspension PO PRN (05:01)
[2017-06-28 05:11] LABS: ALANINE AMINOTRANSFERASE 16 U/L (12-78); ALBUMIN 1.7 G/DL (3.4-5.0); ALBUMIN/GLOBULIN RATIO 0.3 (1.1-1.5); ALKALINE PHOSPHATASE 96 IU/L (46-116); ANION GAP 6 (8-16); ASPARTATE AMINO TRANSFERASE 22 U/L (10-37); BILIRUBIN,TOTAL 0.4 MG/DL (0.1-1.0); BLOOD UREA NITROGEN 17 MG/DL (7-18); BUN/CREATININE RATIO 10.6 (5.4-32.0); CALCIUM 7.8 MG/DL (8.5-10.1); CHLORIDE 102 MMOL/L (99-107); SODIUM 137 MMOL/L (135-145); TOTAL CARBON DIOXIDE 28.7 MMOL/L (24-32); TOTAL PROTEIN 7.6 G/DL (6.4-8.2); eGFR 51 ML/MIN
[2017-06-28 05:22] LABS: GLUCOSE 107 MG/DL (70-104)
[2017-06-28 06:00] VITALS: BP 100/60
[2017-06-28] MEDS: buprenorphine/naloxone 2-0.5mg sublingual tablet SL SCH (07:31)
[2017-06-28] MEDS: LACTOBACILLUS RHAMNOSUS GG 15 billion unit sprinkle caps PO SCH (07:31)
[2017-06-28] MEDS: CefTRIAXone 2gm/NS 100ml IVPB 100 ML IV SCH (07:34)
[2017-06-28] MEDS: K, MAG and/or Phos replacement - Verify level? MC SCH (08:00)
[2017-06-28] MEDS: normal saline 1000ml 1,000 ML IV SCH ×2 (09:42→17:05)
[2017-06-28] MEDS: levoFLOXACIN 750MG TABLET PO SCH (11:18)
[2017-06-28 15:00] VITALS: BP 121/68
[2017-06-28 17:22] LABS: ALBUMIN 1.8 G/DL (3.4-5.0); ANION GAP 8 (8-16); BLOOD UREA NITROGEN 17 MG/DL (7-18); BUN/CREATININE RATIO 13.1 (5.4-32.0); CHLORIDE 102 MMOL/L (99-107); SODIUM 137 MMOL/L (135-145); TOTAL CARBON DIOXIDE 26.9 MMOL/L (24-32); eGFR 65 ML/MIN
[2017-06-28 17:33] LABS: GLUCOSE 106 MG/DL (70-104)
[2017-06-28 19:00] VITALS: BP 123/78
[2017-06-28] MEDS: acetaminophen 325mg tablet PO PRN (19:53)
[2017-06-28] MEDS: ondansetron/PF 4mg/2ml inj IV PRN (22:01)
[2017-06-28 23:00] VITALS: BP 156/70
[2017-06-29] MEDS: normal saline 1000ml 1,000 ML IV SCH (00:24)
[2017-06-29] MEDS: acetaminophen 325mg tablet PO PRN (02:16)
[2017-06-29 03:00] VITALS: BP 142/87
[2017-06-29 06:00] VITALS: BP 115/68
[2017-06-29] MEDS: CefTRIAXone 2gm/NS 100ml IVPB 100 ML IV SCH (09:44)
[2017-06-29] MEDS: buprenorphine/naloxone 2-0.5mg sublingual tablet SL SCH (09:44)
[2017-06-29] MEDS: LACTOBACILLUS RHAMNOSUS GG 15 billion unit sprinkle caps PO SCH (09:44)
[2017-06-29 10:14] LABS: BASOPHILS % (AUTO) 0.3 % (0-1); EOSINOPHILS % (AUTO) 0 % (0-6); HEMATOCRIT 23.7 % (42.0-52.0); HEMOGLOBIN 7.9 g/dl (14.0-17.9); LYMPHOCYTES # (AUTO) 1.5 X10'3 (1.1-4.8); LYMPHOCYTES % (AUTO) 9.6 % (21-51); MEAN CORPUSCULAR HGB CONC 33.2 % (33.0-36.5); MEAN CORPUSCULAR VOLUME 84.4 FL (78-98); MEAN PLATELET VOLUME 8.6 FL (7.4-10.4); MONOCYTES # (AUTO) 0.6 X10'3 (0-0.9); MONOCYTES % (AUTO) 3.8 % (2-12); NEUTROPHILS # (AUTO) 13.8 X10'3 (1.8-7.7); NEUTROPHILS % (AUTO) 86.3 % (42-75); PLATELET COUNT 107 X10'3 (140-440); RED BLOOD COUNT 2.81 X10'6 (4.70-6.10); RED CELL DISTRIBUTION WIDTH 18.9 % (11.5-14.5)
[2017-06-29 10:37] LABS: ALBUMIN 1.5 G/DL (3.4-5.0); ANION GAP 6 (8-16); BLOOD UREA NITROGEN 12 MG/DL (7-18); BUN/CREATININE RATIO 9.2 (5.4-32.0); CALCIUM 7.8 MG/DL (8.5-10.1); CHLORIDE 106 MMOL/L (99-107); GLUCOSE 111 MG/DL (70-104); POTASSIUM 3.9 MMOL/L (3.5-5.1); SODIUM 139 MMOL/L (135-145); TOTAL CARBON DIOXIDE 26.6 MMOL/L (24-32); eGFR 65 ML/MIN
[2017-06-29] MEDS: K, MAG and/or Phos replacement - Verify level? MC SCH (10:54)
[2017-06-29 11:00] VITALS: BP 96/59
[2017-06-29] MEDS: levoFLOXACIN 750MG TABLET PO SCH (11:08)
[2017-06-29 15:00] VITALS: BP 108/67
[2017-06-29 18:00] VITALS: BP 107/65
[2017-06-29 22:00] VITALS: BP 118/78
[2017-06-30 02:00] VITALS: BP 129/76
[2017-06-30] MEDS: ondansetron/PF 4mg/2ml inj IV PRN ×2 (04:42→19:40)
[2017-06-30 05:29] LABS: BASOPHILS % (AUTO) 0.5 % (0-1); EOSINOPHILS # (AUTO) 0.1 X10'3 (0-0.9); EOSINOPHILS % (AUTO) 1.5 % (0-6); HEMATOCRIT 25.2 % (42.0-52.0); HEMOGLOBIN 8.4 g/dl (14.0-17.9); LYMPHOCYTES # (AUTO) 1.5 X10'3 (1.1-4.8); LYMPHOCYTES % (AUTO) 17.1 % (21-51); MEAN CORPUSCULAR HEMOGLOBIN 27.9 PG (27.0-31.0); MEAN CORPUSCULAR HGB CONC 33.3 % (33.0-36.5); MEAN CORPUSCULAR VOLUME 83.7 FL (78-98); MEAN PLATELET VOLUME 8.7 FL (7.4-10.4); MONOCYTES # (AUTO) 0.5 X10'3 (0-0.9); MONOCYTES % (AUTO) 5.8 % (2-12); NEUTROPHILS # (AUTO) 6.7 X10'3 (1.8-7.7); NEUTROPHILS % (AUTO) 75.1 % (42-75); PLATELET COUNT 106 X10'3 (140-440); RED BLOOD COUNT 3.01 X10'6 (4.70-6.10); WHITE BLOOD COUNT 8.9 X10'3 (4.5-11.0)
[2017-06-30 05:30] VITALS: BP 131/79
[2017-06-30 05:57] LABS: ALBUMIN 1.7 G/DL (3.4-5.0); ANION GAP 7 (8-16); BLOOD UREA NITROGEN 13 MG/DL (7-18); CALCIUM 7.9 MG/DL (8.5-10.1); CHLORIDE 103 MMOL/L (99-107); GLUCOSE 96 MG/DL (70-104); POTASSIUM 4.5 MMOL/L (3.5-5.1); SODIUM 136 MMOL/L (135-145); TOTAL CARBON DIOXIDE 26.3 MMOL/L (24-32); eGFR 65 ML/MIN
[2017-06-30] MEDS: K, MAG and/or Phos replacement - Verify level? MC SCH (07:28)
[2017-06-30] MEDS: buprenorphine/naloxone 2-0.5mg sublingual tablet SL SCH (07:35)
[2017-06-30] MEDS: LACTOBACILLUS RHAMNOSUS GG 15 billion unit sprinkle caps PO SCH (07:35)
[2017-06-30] MEDS: CefTRIAXone 2gm/NS 100ml IVPB 100 ML IV SCH (07:35)
[2017-06-30 11:00] VITALS: BP 124/70
[2017-06-30] MEDS: levoFLOXACIN 750MG TABLET PO SCH (11:16)
[2017-06-30] MEDS: acetaminophen 325mg tablet PO PRN (11:18)
[2017-06-30 15:00] VITALS: BP 115/70
[2017-06-30 19:00] VITALS: BP 100/77
[2017-06-30 22:00] VITALS: BP 103/73
[2017-07-01] VITALS (24 sets, daily range): BP systolic 98–132; BP diastolic 58–89
[2017-07-01] MEDS: ondansetron/PF 4mg/2ml inj IV PRN ×2 (05:02→11:15)
[2017-07-01 06:23] LABS: BASOPHILS # (AUTO) 0.1 X10'3 (0-0.2); BASOPHILS % (AUTO) 0.6 % (0-1); EOSINOPHILS # (AUTO) 0.1 X10'3 (0-0.9); EOSINOPHILS % (AUTO) 1.2 % (0-6); HEMATOCRIT 30.1 % (42.0-52.0); HEMOGLOBIN 10.1 g/dl (14.0-17.9); LYMPHOCYTES # (AUTO) 1.5 X10'3 (1.1-4.8); LYMPHOCYTES % (AUTO) 12.6 % (21-51); MEAN CORPUSCULAR HGB CONC 33.5 % (33.0-36.5); MEAN CORPUSCULAR VOLUME 83.6 FL (78-98); MONOCYTES # (AUTO) 0.6 X10'3 (0-0.9); MONOCYTES % (AUTO) 5.1 % (2-12); NEUTROPHILS # (AUTO) 9.8 X10'3 (1.8-7.7); NEUTROPHILS % (AUTO) 80.5 % (42-75); PLATELET COUNT 113 X10'3 (140-440); RED BLOOD COUNT 3.61 X10'6 (4.70-6.10); RED CELL DISTRIBUTION WIDTH 18.7 % (11.5-14.5); WHITE BLOOD COUNT 12.2 X10'3 (4.5-11.0)
[2017-07-01 06:56] LABS: ANION GAP 8 (8-16); BLOOD UREA NITROGEN 13 MG/DL (7-18); CALCIUM 8.4 MG/DL (8.5-10.1); CHLORIDE 100 MMOL/L (99-107); POTASSIUM 4.4 MMOL/L (3.5-5.1); SODIUM 136 MMOL/L (135-145); TOTAL CARBON DIOXIDE 28.3 MMOL/L (24-32); eGFR 65 ML/MIN
[2017-07-01 06:58] LABS: GLUCOSE 94 MG/DL (70-104)
[2017-07-01] MEDS: buprenorphine/naloxone 2-0.5mg sublingual tablet SL SCH (07:25)
[2017-07-01] MEDS: LACTOBACILLUS RHAMNOSUS GG 15 billion unit sprinkle caps PO SCH (07:26)
[2017-07-01] MEDS: CefTRIAXone 2gm/NS 100ml IVPB 100 ML IV SCH (07:26)
[2017-07-01] MEDS: acetaminophen 325mg tablet PO PRN (07:26)
[2017-07-01] MEDS: K, MAG and/or Phos replacement - Verify level? MC SCH (08:00)
[2017-07-01] MEDS: levoFLOXACIN 750MG TABLET PO SCH (11:14)
[2017-07-01] MEDS ORDERED: MIDAZolam 5mg/ml 2ml vial IV ONE (12:20)
[2017-07-01] MEDS ORDERED: morphine 10mg/ml inj. IV ONE ×2 (12:20→16:00)
[2017-07-01] MEDS ORDERED: MIDAZolam 1mg/ml 10ml vial IV ONE (16:00)
[2017-07-01] MEDS ORDERED: morphine 2 MG/ML inj. syringe IV ONE (16:10)
[2017-07-01] MEDS ORDERED: benzocaine/menthol oral lozeng 1 EACH BOX MM PRN (21:50)
[2017-07-02 02:00] VITALS: BP 121/80
[2017-07-02] MEDS ORDERED: LIDOcaine Viscous 15ml cup MM PRN (02:55)
[2017-07-02] MEDS: sucralfate 1gm/10ml UD suspension PO SCH (04:03)
[2017-07-02] MEDS: acetaminophen 325mg tablet PO PRN ×2 (04:09→20:19)
[2017-07-02 06:00] VITALS: BP 99/52
[2017-07-02] MEDS: K, MAG and/or Phos replacement - Verify level? MC SCH (08:00)
[2017-07-02] MEDS: buprenorphine/naloxone 2-0.5mg sublingual tablet SL SCH (08:05)
[2017-07-02] MEDS: CefTRIAXone 2gm/NS 100ml IVPB 100 ML IV SCH (08:05)
[2017-07-02] MEDS: LACTOBACILLUS RHAMNOSUS GG 15 billion unit sprinkle caps PO SCH (08:05)
[2017-07-02 09:49] LABS: BASOPHILS # (AUTO) 0.3 X10'3 (0-0.2); BASOPHILS % (AUTO) 1.8 % (0-1); EOSINOPHILS % (AUTO) 0.1 % (0-6); HEMATOCRIT 26.2 % (42.0-52.0); HEMOGLOBIN 9.1 g/dl (14.0-17.9); LYMPHOCYTES # (AUTO) 1.8 X10'3 (1.1-4.8); LYMPHOCYTES % (AUTO) 11.5 % (21-51); MEAN CORPUSCULAR HEMOGLOBIN 28.5 PG (27.0-31.0); MEAN CORPUSCULAR HGB CONC 34.6 % (33.0-36.5); MEAN CORPUSCULAR VOLUME 82.5 FL (78-98); MEAN PLATELET VOLUME 9.1 FL (7.4-10.4); MONOCYTES # (AUTO) 0.8 X10'3 (0-0.9); MONOCYTES % (AUTO) 4.8 % (2-12); NEUTROPHILS # (AUTO) 12.9 X10'3 (1.8-7.7); NEUTROPHILS % (AUTO) 81.8 % (42-75); PLATELET COUNT 100 X10'3 (140-440); RED BLOOD COUNT 3.18 X10'6 (4.70-6.10); RED CELL DISTRIBUTION WIDTH 17.4 % (11.5-14.5); WHITE BLOOD COUNT 15.8 X10'3 (4.5-11.0)
[2017-07-02 10:06] LABS: ALBUMIN 1.9 G/DL (3.4-5.0); ANION GAP 7 (8-16); BLOOD UREA NITROGEN 14 MG/DL (7-18); CALCIUM 8.1 MG/DL (8.5-10.1); CHLORIDE 101 MMOL/L (99-107); GLUCOSE 111 MG/DL (70-104); POTASSIUM 4.2 MMOL/L (3.5-5.1); SODIUM 137 MMOL/L (135-145); TOTAL CARBON DIOXIDE 28.7 MMOL/L (24-32); eGFR 60 ML/MIN
[2017-07-02] MEDS: levoFLOXACIN 750MG TABLET PO SCH (10:34)
[2017-07-02 11:00] VITALS: BP 125/77
[2017-07-02 12:53] LABS: TOTAL CELLS COUNTED 100
[2017-07-02 12:54] LABS: ANISOCYTOSIS 1+; PLATELET ESTIMATE DECREASED
[2017-07-02 12:55] LABS: ELLIPTOCYTES FEW; SMUDGE CELLS FEW; TEAR DROP CELLS FEW; TOXIC GRANULATION 1+
[2017-07-02 12:57] LABS: POIKILOCYTOSIS 1+
[2017-07-02 15:00] VITALS: BP 110/71
[2017-07-02 18:30] VITALS: BP 112/64
[2017-07-02] MEDS: ondansetron/PF 4mg/2ml inj IV PRN (20:09)
[2017-07-02 22:00] VITALS: BP 98/52
[2017-07-03 02:00] VITALS: BP 109/61
[2017-07-03] MEDS: sucralfate 1gm/10ml UD suspension PO SCH (02:55)
[2017-07-03] MEDS: mag hydrox/Alum hydrox/simeth 30ml oral suspension PO PRN (05:11)
[2017-07-03 06:00] VITALS: BP 107/59
[2017-07-03 06:08] LABS: BASOPHILS # (AUTO) 0.1 X10'3 (0-0.2); BASOPHILS % (AUTO) 0.4 % (0-1); EOSINOPHILS # (AUTO) 0.2 X10'3 (0-0.9); EOSINOPHILS % (AUTO) 0.8 % (0-6); HEMATOCRIT 31.3 % (42.0-52.0); HEMOGLOBIN 10.8 g/dl (14.0-17.9); LYMPHOCYTES # (AUTO) 2.9 X10'3 (1.1-4.8); LYMPHOCYTES % (AUTO) 12.8 % (21-51); MEAN CORPUSCULAR HEMOGLOBIN 28.5 PG (27.0-31.0); MEAN CORPUSCULAR HGB CONC 34.5 % (33.0-36.5); MEAN CORPUSCULAR VOLUME 82.7 FL (78-98); MONOCYTES % (AUTO) 4.4 % (2-12); NEUTROPHILS # (AUTO) 18.7 X10'3 (1.8-7.7); NEUTROPHILS % (AUTO) 81.6 % (42-75); PLATELET COUNT 116 X10'3 (140-440); RED BLOOD COUNT 3.79 X10'6 (4.70-6.10); RED CELL DISTRIBUTION WIDTH 18.7 % (11.5-14.5); WHITE BLOOD COUNT 22.9 X10'3 (4.5-11.0)
[2017-07-03 06:32] LABS: ALBUMIN 2.2 G/DL (3.4-5.0); ANION GAP 7 (8-16); BLOOD UREA NITROGEN 15 MG/DL (7-18); BUN/CREATININE RATIO 11.5 (5.4-32.0); CALCIUM 8.8 MG/DL (8.5-10.1); CHLORIDE 100 MMOL/L (99-107); POTASSIUM 4.2 MMOL/L (3.5-5.1); SODIUM 137 MMOL/L (135-145); TOTAL CARBON DIOXIDE 29.6 MMOL/L (24-32); eGFR 65 ML/MIN
[2017-07-03 06:36] LABS: GLUCOSE 99 MG/DL (70-104)
[2017-07-03] MEDS: K, MAG and/or Phos replacement - Verify level? MC SCH (08:00)
[2017-07-03] MEDS: CefTRIAXone 2gm/NS 100ml IVPB 100 ML IV SCH (08:47)
[2017-07-03] MEDS: buprenorphine/naloxone 2-0.5mg sublingual tablet SL SCH (08:47)
[2017-07-03] MEDS: LACTOBACILLUS RHAMNOSUS GG 15 billion unit sprinkle caps PO SCH (08:47)
[2017-07-03 11:00] VITALS: BP 109/72
[2017-07-03] MEDS: levoFLOXACIN 750MG TABLET PO SCH (11:31)
[2017-07-03 15:00] VITALS: BP 102/64
[2017-07-03 19:00] VITALS: BP 117/72
[2017-07-03 23:00] VITALS: BP 117/66
[2017-07-04] MEDS: acetaminophen 325mg tablet PO PRN ×2 (02:32→09:21)
[2017-07-04] MEDS: sucralfate 1gm/10ml UD suspension PO SCH (02:32)
[2017-07-04 03:00] VITALS: BP 123/75
[2017-07-04 06:00] VITALS: BP 110/72
[2017-07-04 07:17] LABS: BASOPHILS # (AUTO) 0.1 X10'3 (0-0.2); BASOPHILS % (AUTO) 0.5 % (0-1); EOSINOPHILS # (AUTO) 0.1 X10'3 (0-0.9); EOSINOPHILS % (AUTO) 0.7 % (0-6); HEMATOCRIT 28.9 % (42.0-52.0); LYMPHOCYTES # (AUTO) 1.8 X10'3 (1.1-4.8); MEAN CORPUSCULAR HEMOGLOBIN 28.3 PG (27.0-31.0); MEAN CORPUSCULAR HGB CONC 34.7 % (33.0-36.5); MEAN CORPUSCULAR VOLUME 81.6 FL (78-98); MEAN PLATELET VOLUME 8.8 FL (7.4-10.4); MONOCYTES # (AUTO) 0.7 X10'3 (0-0.9); MONOCYTES % (AUTO) 5.7 % (2-12); NEUTROPHILS # (AUTO) 9.3 X10'3 (1.8-7.7); NEUTROPHILS % (AUTO) 78.1 % (42-75); PLATELET COUNT 127 X10'3 (140-440); RED BLOOD COUNT 3.54 X10'6 (4.70-6.10); RED CELL DISTRIBUTION WIDTH 18.3 % (11.5-14.5); WHITE BLOOD COUNT 11.9 X10'3 (4.5-11.0)
[2017-07-04 07:36] LABS: ALBUMIN 2.1 G/DL (3.4-5.0); ANION GAP 7 (8-16); BLOOD UREA NITROGEN 13 MG/DL (7-18); CALCIUM 8.5 MG/DL (8.5-10.1); CHLORIDE 99 MMOL/L (99-107); POTASSIUM 4.2 MMOL/L (3.5-5.1); SODIUM 135 MMOL/L (135-145); TOTAL CARBON DIOXIDE 29.3 MMOL/L (24-32); eGFR 65 ML/MIN
[2017-07-04 07:40] LABS: GLUCOSE 107 MG/DL (70-104)
[2017-07-04] MEDS: K, MAG and/or Phos replacement - Verify level? MC SCH (08:00)
[2017-07-04] MEDS: buprenorphine/naloxone 2-0.5mg sublingual tablet SL SCH (08:57)
[2017-07-04] MEDS: CefTRIAXone 2gm/NS 100ml IVPB 100 ML IV SCH (08:57)
[2017-07-04] MEDS: LACTOBACILLUS RHAMNOSUS GG 15 billion unit sprinkle caps PO SCH (08:58)
[2017-07-04 11:00] VITALS: BP 112/65
[2017-07-04] MEDS: levoFLOXACIN 750MG TABLET PO SCH (12:19)
[2017-07-04 18:30] VITALS: BP 115/65
[2017-07-04 22:00] VITALS: BP 111/68
[2017-07-05 02:30] VITALS: BP 112/73
[2017-07-05] MEDS: sucralfate 1gm/10ml UD suspension PO SCH (02:55)
[2017-07-05] MEDS: acetaminophen 325mg tablet PO PRN (03:18)
[2017-07-05 05:05] LABS: BASOPHILS % (AUTO) 0.3 % (0-1); EOSINOPHILS # (AUTO) 0.2 X10'3 (0-0.9); EOSINOPHILS % (AUTO) 1.2 % (0-6); HEMATOCRIT 28.7 % (42.0-52.0); HEMOGLOBIN 9.6 g/dl (14.0-17.9); LYMPHOCYTES # (AUTO) 1.5 X10'3 (1.1-4.8); LYMPHOCYTES % (AUTO) 10.4 % (21-51); MEAN CORPUSCULAR HEMOGLOBIN 27.7 PG (27.0-31.0); MEAN CORPUSCULAR HGB CONC 33.3 % (33.0-36.5); MEAN CORPUSCULAR VOLUME 83.2 FL (78-98); MEAN PLATELET VOLUME 9.1 FL (7.4-10.4); MONOCYTES # (AUTO) 1.1 X10'3 (0-0.9); MONOCYTES % (AUTO) 7.9 % (2-12); NEUTROPHILS # (AUTO) 11.3 X10'3 (1.8-7.7); NEUTROPHILS % (AUTO) 80.2 % (42-75); PLATELET COUNT 124 X10'3 (140-440); RED BLOOD COUNT 3.45 X10'6 (4.70-6.10); RED CELL DISTRIBUTION WIDTH 18.6 % (11.5-14.5)
[2017-07-05 05:49] LABS: ALBUMIN 2.1 G/DL (3.4-5.0); ANION GAP 9 (8-16); BLOOD UREA NITROGEN 14 MG/DL (7-18); BUN/CREATININE RATIO 12.7 (5.4-32.0); CALCIUM 8.6 MG/DL (8.5-10.1); CHLORIDE 99 MMOL/L (99-107); GLUCOSE 106 MG/DL (70-104); POTASSIUM 4.1 MMOL/L (3.5-5.1); SODIUM 134 MMOL/L (135-145); TOTAL CARBON DIOXIDE 26.4 MMOL/L (24-32); eGFR 79 ML/MIN
[2017-07-05 06:00] VITALS: BP 115/70
[2017-07-05] MEDS ORDERED: dextrose 50%-water 50ml dispensing syringe IV PRN (07:55)
[2017-07-05] MEDS: K, MAG and/or Phos replacement - Verify level? MC SCH (08:00)
[2017-07-05] MEDS: buprenorphine/naloxone 2-0.5mg sublingual tablet SL SCH (08:14)
[2017-07-05] MEDS: CefTRIAXone 2gm/NS 100ml IVPB 100 ML IV SCH (08:15)
[2017-07-05] MEDS: LACTOBACILLUS RHAMNOSUS GG 15 billion unit sprinkle caps PO SCH (08:17)
[2017-07-05 09:42] LABS: HEMATOCRIT 30.3 % (42.0-52.0); HEMOGLOBIN 10.3 g/dl (14.0-17.9); MEAN CORPUSCULAR HEMOGLOBIN 28.2 PG (27.0-31.0); MEAN CORPUSCULAR HGB CONC 33.9 % (33.0-36.5); MEAN CORPUSCULAR VOLUME 82.9 FL (78-98); MEAN PLATELET VOLUME 9.4 FL (7.4-10.4); PLATELET COUNT 133 X10'3 (140-440); RED BLOOD COUNT 3.65 X10'6 (4.70-6.10); RED CELL DISTRIBUTION WIDTH 18.7 % (11.5-14.5); WHITE BLOOD COUNT 12.9 X10'3 (4.5-11.0)
[2017-07-05 09:51] LABS: INR 1.3 INR; PARTIAL THROMBOPLASTIN TIME 33 SECONDS (22-32); PROTHROMBIN TIME 13.1 SECONDS (9.0-12.0)
[2017-07-05 11:00] VITALS: BP 122/83
[2017-07-05] MEDS: levoFLOXACIN 750MG TABLET PO SCH (11:19)
[2017-07-05] MEDS: ondansetron/PF 4mg/2ml inj IV PRN (13:56)
[2017-07-05 15:00] VITALS: BP 110/66
[2017-07-05 18:00] VITALS: BP 102/69
[2017-07-05 22:00] VITALS: BP 126/78
[2017-07-06 02:00] VITALS: BP 117/71
[2017-07-06] MEDS: sucralfate 1gm/10ml UD suspension PO SCH ×2 (03:21→20:26)
[2017-07-06 06:00] VITALS: BP 113/62
[2017-07-06 07:25] LABS: BASOPHILS # (AUTO) 0.1 X10'3 (0-0.2); EOSINOPHILS # (AUTO) 0.2 X10'3 (0-0.9); EOSINOPHILS % (AUTO) 1.6 % (0-6); HEMATOCRIT 36.6 % (42.0-52.0); HEMOGLOBIN 12.3 g/dl (14.0-17.9); LYMPHOCYTES # (AUTO) 2.1 X10'3 (1.1-4.8); MEAN CORPUSCULAR HEMOGLOBIN 28.2 PG (27.0-31.0); MEAN CORPUSCULAR HGB CONC 33.5 % (33.0-36.5); MEAN CORPUSCULAR VOLUME 84.1 FL (78-98); MEAN PLATELET VOLUME 8.9 FL (7.4-10.4); MONOCYTES # (AUTO) 0.5 X10'3 (0-0.9); MONOCYTES % (AUTO) 4.9 % (2-12); NEUTROPHILS # (AUTO) 7.1 X10'3 (1.8-7.7); NEUTROPHILS % (AUTO) 71.5 % (42-75); PLATELET COUNT 146 X10'3 (140-440); RED BLOOD COUNT 4.36 X10'6 (4.70-6.10); RED CELL DISTRIBUTION WIDTH 18.2 % (11.5-14.5); WHITE BLOOD COUNT 9.9 X10'3 (4.5-11.0)
[2017-07-06 07:38] LABS: ALBUMIN 2.7 G/DL (3.4-5.0); ANION GAP 8 (8-16); BLOOD UREA NITROGEN 15 MG/DL (7-18); BUN/CREATININE RATIO 11.5 (5.4-32.0); CALCIUM 8.9 MG/DL (8.5-10.1); CHLORIDE 97 MMOL/L (99-107); POTASSIUM 4.9 MMOL/L (3.5-5.1); SODIUM 133 MMOL/L (135-145); TOTAL CARBON DIOXIDE 28.5 MMOL/L (24-32); eGFR 65 ML/MIN
[2017-07-06 07:39] LABS: GLUCOSE 82 MG/DL (70-104)
[2017-07-06] MEDS: K, MAG and/or Phos replacement - Verify level? MC SCH (08:00)
[2017-07-06] MEDS ORDERED: MESSAGE TO NURSING PO ONE ×5 (08:00→10:00)
[2017-07-06] MEDS: LACTOBACILLUS RHAMNOSUS GG 15 billion unit sprinkle caps PO SCH (08:34)
[2017-07-06] MEDS: buprenorphine/naloxone 2-0.5mg sublingual tablet SL SCH (08:34)
[2017-07-06] MEDS: CefTRIAXone 2gm/NS 100ml IVPB 100 ML IV SCH (08:35)
[2017-07-06] MEDS: levoFLOXACIN 750MG TABLET PO SCH (10:27)
[2017-07-06 11:00] VITALS: BP 117/77
[2017-07-06] MEDS: ondansetron/PF 4mg/2ml inj IV PRN (12:21)
[2017-07-06 15:00] VITALS: BP 108/64
[2017-07-06 19:00] VITALS: BP 108/76
[2017-07-06] MEDS: mupirocin 2% ointment 22GM NS SCH (20:21)
[2017-07-06 23:00] VITALS: BP_SYST 109; BP_SYST 124; BP_DIAS 57; BP_DIAS 84
[2017-07-07] VITALS (21 sets, daily range): BP systolic 107–157; BP diastolic 62–101
[2017-07-07] MEDS ORDERED: insulin regular, human inj. 100 UNITS in normal saline 100ml IV soln 100 ML IV SCH ×2 (05:30)
[2017-07-07] MEDS ORDERED: ringers solution, lacted 1,000 ML IV ONE (07:06)
[2017-07-07] MEDS ORDERED: midazolam 2 mg/2 ml injection ONE (07:23)
[2017-07-07] MEDS ORDERED: fentaNYL/PF 50MCG/1 ML 2ML syringe ONE ×3 (07:23→10:05)
[2017-07-07] MEDS ORDERED: propofol inj 20 ML IV ONE ×2 (07:24→07:33)
[2017-07-07] MEDS ORDERED: LIDOcaine 2% (20mg/ml) 5ml vial ONE ×2 (07:24→07:33)
[2017-07-07] MEDS: LACTOBACILLUS RHAMNOSUS GG 15 billion unit sprinkle caps PO SCH (07:30)
[2017-07-07 07:34] LABS: ALBUMIN 2.4 G/DL (3.4-5.0); ANION GAP 7 (8-16); BLOOD UREA NITROGEN 15 MG/DL (7-18); BUN/CREATININE RATIO 11.5 (5.4-32.0); CALCIUM 8.6 MG/DL (8.5-10.1); CHLORIDE 99 MMOL/L (99-107); POTASSIUM 4.4 MMOL/L (3.5-5.1); SODIUM 135 MMOL/L (135-145); TOTAL CARBON DIOXIDE 29.4 MMOL/L (24-32); eGFR 65 ML/MIN
[2017-07-07] MEDS ORDERED: neostigmine methylsulfate 1 MG/ML 10ml vial ONE (07:34)
[2017-07-07] MEDS ORDERED: phenylephrine 10mg/ml inj IV ONE (07:34)
[2017-07-07] MEDS ORDERED: sevoflurane 250ml liquid IH ONE (07:34)
[2017-07-07] MEDS ORDERED: protamine sulf. 10mg/ml inj. IV ONE (07:34)
[2017-07-07] MEDS ORDERED: ePHEDrine 50MG/ML INJ. ONE (07:34)
[2017-07-07] MEDS ORDERED: diphenhydrAMINE 50 mg/ml inj ONE (07:34)
[2017-07-07] MEDS ORDERED: ondansetron/PF 4mg/2ml inj ONE (07:34)
[2017-07-07] MEDS ORDERED: rocuronium 10mg/ml inj IV ONE (07:34)
[2017-07-07] MEDS ORDERED: epiNEPHrine 1 mg/ml inj ONE (07:34)
[2017-07-07 07:36] LABS: GLUCOSE 99 MG/DL (70-104)
[2017-07-07] MEDS ORDERED: iohexol 300 MG/1 ML 50ml polymer ONE (07:47)
[2017-07-07] MEDS: buprenorphine/naloxone 2-0.5mg sublingual tablet SL SCH (08:00)
[2017-07-07] MEDS: mupirocin 2% ointment 22GM NS SCH (08:00)
[2017-07-07] MEDS: K, MAG and/or Phos replacement - Verify level? MC SCH (08:00)
[2017-07-07] MEDS: CefTRIAXone 2gm/NS 100ml IVPB 100 ML IV SCH (08:00)
[2017-07-07] MEDS ORDERED: heparin 10,000 units/1 ML INJ ONE (08:00)
[2017-07-07 08:31] LABS: ABG BASE EXCESS 0.6 mmol/L (-2.0-3.0); ABG OXYGEN SATURATION 99.7 % (95-98); ABG PCO2 33.7 mmHg (35.0-45.0); ABG PO2 480.5 mmHg (60.0-100.0); CL (ABG) 101 mmol/L (99-107); FCOHb 0.1 % (0.5-1.5); FMetHb 0.4 % (0.3-1.12); FO2Hb 99.2 % (94-100); GLUCOSE (ABG) 103 mg/dl (70-105); IONIZED CA (ABG) 1.11 mmol/L (1.03-1.32); NA (ABG) 132 mmol/L (135-145); TOTAL HEMOGLOBIN 9.6 G/dl (14.0-18.0)
[2017-07-07] MEDS: insulin Lispro (HumaLOG) vial - multi-dose SQ SCH ×3 (09:00→18:00)
[2017-07-07] MEDS ORDERED: heparin 10,000 units/1 ML INJ IR ONE (09:50)
[2017-07-07 10:11] LABS: ABG BASE EXCESS VENOUS 0.6 mmol/L; ABG HCO3 VENOUS 26.9 mmol/L; ABG PCO2 VENOUS 52.3 mmHg; ABG PO2 VENOUS 55.4 mmHg; CL (ABG) 100 mmol/L (99-107); FCOHb VENOUS 1.8 %; FHHb VENOUS 13.5 %; FMetHb VENOUS 0.2 %; FO2Hb VENOUS 84.5 %; GLUCOSE (ABG) 101 mg/dl (70-105); IONIZED CA (ABG) 1.07 mmol/L (1.03-1.32); K (ABG) 4.2 mmol/L (3.3-5.1); NA (ABG) 133 mmol/L (135-145); TOTAL HEMOGLOBIN 8.7 G/dl (14.0-18.0)
[2017-07-07] MEDS ORDERED: metoclopramide 5 mg/ml inj IV PRN (10:20)
[2017-07-07] MEDS ORDERED: magnesium hydroxide 30ml (MOM) UD suspension PO PRN (10:20)
[2017-07-07] MEDS ORDERED: ondansetron/PF 4mg/2ml inj IV PRN ×2 (10:20→10:40)
[2017-07-07] MEDS ORDERED: meperidine/PF 50mg/ml syringe ONE (10:21)
[2017-07-07] MEDS ORDERED: ringers solution, lacted 1,000 ML IV SCH (10:36)
[2017-07-07] MEDS ORDERED: meperidine/PF 25mg/ml syringe IV PRN ×3 (10:40)
[2017-07-07] MEDS ORDERED: proCHLORperazine 10 MG/2 ml inj IV PRN (10:40)
[2017-07-07] MEDS ORDERED: morphine 2 MG/ML inj. syringe IV PRN ×2 (10:40)
[2017-07-07] MEDS: levoFLOXACIN 750MG TABLET PO SCH (11:00)
[2017-07-07] MEDS: ketorolac tromethamine 15mg/ml inj. IV PRN ×2 (14:45→21:33)
[2017-07-07] MEDS ORDERED: CefTRIAXone 2gm/NS 100ml IVPB 100 ML IV ONE (16:05)
[2017-07-07] MEDS: docusate sod 100mg capsule PO SCH (20:00)
[2017-07-07] MEDS ORDERED: levoFLOXACIN 750MG TABLET PO ONE (20:00)
[2017-07-08] MEDS: sucralfate 1gm/10ml UD suspension PO SCH (02:55)
[2017-07-08] MEDS: ketorolac tromethamine 15mg/ml inj. IV PRN ×3 (05:50→21:41)
[2017-07-08 06:00] VITALS: BP 105/67
[2017-07-08] MEDS ORDERED: famotidine/PF 10 mg/ml inj IV ONE (06:00)
[2017-07-08] MEDS ORDERED: LORazepam 2 mg/ml vial IV ONE (06:00)
[2017-07-08] MEDS: LACTOBACILLUS RHAMNOSUS GG 15 billion unit sprinkle caps PO SCH (07:18)
[2017-07-08] MEDS: buprenorphine/naloxone 2-0.5mg sublingual tablet SL SCH (07:19)
[2017-07-08] MEDS: pantoprazole 40mg Tablet.DR PO SCH (07:20)
[2017-07-08] MEDS: CefTRIAXone 2gm/NS 100ml IVPB 100 ML IV SCH (07:20)
[2017-07-08] MEDS: docusate sod 100mg capsule PO SCH ×2 (07:20→20:00)
[2017-07-08] MEDS: K, MAG and/or Phos replacement - Verify level? MC SCH (08:00)
[2017-07-08] MEDS: insulin Lispro (HumaLOG) vial - multi-dose SQ SCH ×3 (09:00→17:28)
[2017-07-08 10:44] LABS: BASOPHILS % (AUTO) 0.5 % (0-1); EOSINOPHILS # (AUTO) 0.1 X10'3 (0-0.9); EOSINOPHILS % (AUTO) 1.5 % (0-6); HEMATOCRIT 24.2 % (42.0-52.0); HEMOGLOBIN 8.3 g/dl (14.0-17.9); LYMPHOCYTES # (AUTO) 1.2 X10'3 (1.1-4.8); LYMPHOCYTES % (AUTO) 14.7 % (21-51); MEAN CORPUSCULAR HEMOGLOBIN 28.3 PG (27.0-31.0); MEAN CORPUSCULAR HGB CONC 34.3 % (33.0-36.5); MEAN CORPUSCULAR VOLUME 82.6 FL (78-98); MEAN PLATELET VOLUME 8.6 FL (7.4-10.4); MONOCYTES # (AUTO) 0.6 X10'3 (0-0.9); MONOCYTES % (AUTO) 7.1 % (2-12); NEUTROPHILS # (AUTO) 6.2 X10'3 (1.8-7.7); NEUTROPHILS % (AUTO) 76.2 % (42-75); PLATELET COUNT 103 X10'3 (140-440); RED BLOOD COUNT 2.93 X10'6 (4.70-6.10); RED CELL DISTRIBUTION WIDTH 17.7 % (11.5-14.5); WHITE BLOOD COUNT 8.2 X10'3 (4.5-11.0)
[2017-07-08 10:55] LABS: ALBUMIN 2.1 G/DL (3.4-5.0); ANION GAP 4 (8-16); BLOOD UREA NITROGEN 17 MG/DL (7-18); BUN/CREATININE RATIO 14.2 (5.4-32.0); CALCIUM 8.1 MG/DL (8.5-10.1); CHLORIDE 103 MMOL/L (99-107); GLUCOSE 108 MG/DL (70-104); POTASSIUM 3.9 MMOL/L (3.5-5.1); SODIUM 136 MMOL/L (135-145); TOTAL CARBON DIOXIDE 28.9 MMOL/L (24-32); eGFR 72 ML/MIN
[2017-07-08 11:00] VITALS: BP 108/54
[2017-07-08] MEDS: levoFLOXACIN 750MG TABLET PO SCH (11:50)
[2017-07-08 12:06] LABS: ACT @ 1.70 U 453 SEC (193-297); ACT @ 2.84 U 721 SEC (260-420); BASELINE ACT 199 SEC (101-148); PATIENT WEIGHT 90.9k KG
[2017-07-08 12:06] LABS: ACTIVATED CLOTTING TIME 172 SEC (101-148)
[2017-07-08 12:06] LABS: ACTIVATED CLOTTING TIME 451 SEC (101-148)
[2017-07-08 15:00] VITALS: BP 116/74
[2017-07-08] MEDS: mag hydrox/Alum hydrox/simeth 30ml oral suspension PO PRN (17:29)
[2017-07-08 18:30] VITALS: BP 110/64
[2017-07-08 23:00] VITALS: BP 115/62
[2017-07-09] MEDS: sucralfate 1gm/10ml UD suspension PO SCH (02:55)
[2017-07-09 03:00] VITALS: BP 116/76
[2017-07-09 06:00] VITALS: BP 111/70
[2017-07-09] MEDS: LACTOBACILLUS RHAMNOSUS GG 15 billion unit sprinkle caps PO SCH (07:49)
[2017-07-09] MEDS: pantoprazole 40mg Tablet.DR PO SCH (07:49)
[2017-07-09] MEDS: CefTRIAXone 2gm/NS 100ml IVPB 100 ML IV SCH (07:50)
[2017-07-09] MEDS: docusate sod 100mg capsule PO SCH ×2 (07:50→19:33)
[2017-07-09] MEDS: buprenorphine/naloxone 2-0.5mg sublingual tablet SL SCH (07:58)
[2017-07-09] MEDS: insulin Lispro (HumaLOG) vial - multi-dose SQ SCH ×3 (08:00→18:00)
[2017-07-09] MEDS: K, MAG and/or Phos replacement - Verify level? MC SCH (08:00)
[2017-07-09 09:41] LABS: MAGNESIUM 1.6 MG/DL (1.5-2.4)
[2017-07-09 09:49] LABS: BASOPHILS % (AUTO) 0.4 % (0-1); EOSINOPHILS # (AUTO) 0.1 X10'3 (0-0.9); EOSINOPHILS % (AUTO) 1.7 % (0-6); HEMATOCRIT 24.1 % (42.0-52.0); HEMOGLOBIN 8.3 g/dl (14.0-17.9); LYMPHOCYTES # (AUTO) 1.1 X10'3 (1.1-4.8); LYMPHOCYTES % (AUTO) 13.7 % (21-51); MEAN CORPUSCULAR HEMOGLOBIN 28.2 PG (27.0-31.0); MEAN CORPUSCULAR HGB CONC 34.4 % (33.0-36.5); MEAN PLATELET VOLUME 9.4 FL (7.4-10.4); MONOCYTES # (AUTO) 0.6 X10'3 (0-0.9); MONOCYTES % (AUTO) 7.5 % (2-12); NEUTROPHILS # (AUTO) 6.2 X10'3 (1.8-7.7); NEUTROPHILS % (AUTO) 76.7 % (42-75); PLATELET COUNT 105 X10'3 (140-440); RED BLOOD COUNT 2.94 X10'6 (4.70-6.10); RED CELL DISTRIBUTION WIDTH 17.6 % (11.5-14.5); WHITE BLOOD COUNT 8.1 X10'3 (4.5-11.0)
[2017-07-09 09:56] LABS: ALBUMIN 2.1 G/DL (3.4-5.0); ANION GAP 9 (8-16); BLOOD UREA NITROGEN 16 MG/DL (7-18); BUN/CREATININE RATIO 14.5 (5.4-32.0); CALCIUM 8.3 MG/DL (8.5-10.1); CHLORIDE 104 MMOL/L (99-107); GLUCOSE 126 MG/DL (70-104); POTASSIUM 3.7 MMOL/L (3.5-5.1); SODIUM 138 MMOL/L (135-145); TOTAL CARBON DIOXIDE 25.3 MMOL/L (24-32); eGFR 79 ML/MIN
[2017-07-09 11:00] VITALS: BP 127/81
[2017-07-09] MEDS: levoFLOXACIN 750MG TABLET PO SCH (11:47)
[2017-07-09 15:00] VITALS: BP 123/69
[2017-07-09 19:00] VITALS: BP 118/75
[2017-07-09 23:00] VITALS: BP 99/63
[2017-07-10] MEDS: sucralfate 1gm/10ml UD suspension PO SCH (02:10)
[2017-07-10 03:00] VITALS: BP 121/78
[2017-07-10 05:36] LABS: BASOPHILS # (AUTO) 0.1 X10'3 (0-0.2); BASOPHILS % (AUTO) 1.2 % (0-1); EOSINOPHILS # (AUTO) 0.1 X10'3 (0-0.9); HEMATOCRIT 24.2 % (42.0-52.0); HEMOGLOBIN 7.9 g/dl (14.0-17.9); LYMPHOCYTES # (AUTO) 1.5 X10'3 (1.1-4.8); LYMPHOCYTES % (AUTO) 29.2 % (21-51); MEAN CORPUSCULAR HEMOGLOBIN 27.4 PG (27.0-31.0); MEAN CORPUSCULAR HGB CONC 32.7 % (33.0-36.5); MEAN CORPUSCULAR VOLUME 83.9 FL (78-98); MEAN PLATELET VOLUME 9.1 FL (7.4-10.4); MONOCYTES # (AUTO) 0.4 X10'3 (0-0.9); MONOCYTES % (AUTO) 8.3 % (2-12); NEUTROPHILS % (AUTO) 59.3 % (42-75); PLATELET COUNT 114 X10'3 (140-440); RED BLOOD COUNT 2.89 X10'6 (4.70-6.10); RED CELL DISTRIBUTION WIDTH 17.8 % (11.5-14.5); WHITE BLOOD COUNT 5.1 X10'3 (4.5-11.0)
[2017-07-10 06:00] VITALS: BP 120/79
[2017-07-10 06:01] LABS: ALBUMIN 2.1 G/DL (3.4-5.0); ANION GAP 6 (8-16); BLOOD UREA NITROGEN 12 MG/DL (7-18); BUN/CREATININE RATIO 10.9 (5.4-32.0); CALCIUM 8.6 MG/DL (8.5-10.1); CHLORIDE 105 MMOL/L (99-107); GLUCOSE 91 MG/DL (70-104); POTASSIUM 4.4 MMOL/L (3.5-5.1); SODIUM 140 MMOL/L (135-145); TOTAL CARBON DIOXIDE 29.5 MMOL/L (24-32); eGFR 79 ML/MIN
[2017-07-10] MEDS: pantoprazole 40mg Tablet.DR PO SCH (07:30)
[2017-07-10] MEDS: LACTOBACILLUS RHAMNOSUS GG 15 billion unit sprinkle caps PO SCH (07:35)
[2017-07-10] MEDS: buprenorphine/naloxone 2-0.5mg sublingual tablet SL SCH (07:35)
[2017-07-10] MEDS: docusate sod 100mg capsule PO SCH (07:37)
[2017-07-10] MEDS: CefTRIAXone 2gm/NS 100ml IVPB 100 ML IV SCH (07:38)
[2017-07-10 07:46] LABS: MAGNESIUM 1.7 MG/DL (1.5-2.4)
[2017-07-10] MEDS: K, MAG and/or Phos replacement - Verify level? MC SCH (08:00)
[2017-07-10] MEDS: insulin Lispro (HumaLOG) vial - multi-dose SQ SCH ×2 (09:00→11:04)
[2017-07-10 11:00] VITALS: BP 111/68
[2017-07-10] MEDS: levoFLOXACIN 750MG TABLET PO SCH (11:04)
[2017-07-10] MEDS ORDERED: LEVO750T46 PO (12:15)
[2017-07-10 15:00] VITALS: BP 117/73
== END 2017-07-10 16:36 | disposition home or self-care (01) | DRG 169 ==
LOC: ER 12:36 → ED HOLD 16:04 → ICU 2S 16:20 → PCU 3S 06-09 11:25 → PACU 07-07 07:42 → PCU 3S 07-07 10:10
PROVIDERS: ADMIT Emergency Medicine; ATTEND Emergency Medicine
PROC: 02HV33Z Insertion of Infusion Device into Superior Vena Cava, Percutaneous Approach (ICD-10-PCS; 2017-06-05)
PROC: 30233N1 Transfusion of Nonautologous Red Blood Cells into Peripheral Vein, Percutaneous Approach (ICD-10-PCS; 2017-06-18)
PROC: B24BZZ4 Ultrasonography of Heart with Aorta, Transesophageal (ICD-10-PCS; 2017-07-07)
PROC: 5A1221Z Performance of Cardiac Output, Continuous (ICD-10-PCS; 2017-07-07)
PROC: B54DZZ3 Ultrasonography of Bilateral Lower Extremity Veins, Intravascular (ICD-10-PCS; 2017-07-07)
PROC: 02C Heart and Great Vessels, Extirpation (ICD-10-PCS; principal; 2017-07-07 07:30)
DX: T82.6XXA Infection and inflammatory reaction due to cardiac valve prosthesis, initial encounter (principal); A41.59 Other Gram-negative sepsis; R65.21 Severe sepsis with septic shock; I76 Septic arterial embolism; D69.59 Other secondary thrombocytopenia; N17.9 Acute kidney failure, unspecified; B49 Unspecified mycosis; N18.3 Chronic kidney disease, stage 3 (moderate); T80.211A Bloodstream infection due to central venous catheter, initial encounter; I33.0 Acute and subacute infective endocarditis; E86.0 Dehydration; E87.6 Hypokalemia; B95.62 Methicillin resistant Staphylococcus aureus infection as the cause of diseases classified elsewhere; F11.10 Opioid abuse, uncomplicated; F17.210 Nicotine dependence, cigarettes, uncomplicated; F15.10 Other stimulant abuse, uncomplicated; D63.1 Anemia in chronic kidney disease; F19.20 Other psychoactive substance dependence, uncomplicated; Y83.1 Surgical operation with implant of artificial internal device as the cause of abnormal reaction of the patient, or of later complication, without mention of misadventure at the time of the procedure; M54.9 Dorsalgia, unspecified; I08.1 Rheumatic disorders of both mitral and tricuspid valves; Z66 Do not resuscitate; Z91.19 Patient's noncompliance with other medical treatment and regimen; Z95.2 Presence of prosthetic heart valve; Z79.899 Other long term (current) drug therapy; Z79.01 Long term (current) use of anticoagulants; Z79.82 Long term (current) use of aspirin; Y92.89 Other specified places as the place of occurrence of the external cause
CPT/HCPCS: 36415; 36556; 71010; 71045; 71046; 71260; 74176; 74177; 80048; 80053; 80202; 80305; 80320; 81001; 82272; 82330; 82435; 82570; 82595; 82607; 82728; 82746; 82800; 82803; 82810; 82947; 82948; 83010; 83540; 83550; 83605; 83615; 83735; 84100; 84132; 84145; 84295; 84300; 85018; 85025; 85027; 85045; 85347; 85610; 85730; 86160; 86885; 86900; 86901; 86920; 87040; 87070; 87075; 87077; 87088; 87102; 87186; 87207; 87502; 87503; 93005; 93308; 93312; 93325; 93970; 93971; 94667; 94668; 94760; 96361; 96365; 96366; 96368; 99285; A6212; A6251; A6255; A6257; A6258; A6402; A6449; A7000; A7048; C1751; C1758; C1769; C1894; J0171; J0696; J1200; J1450; J1644; J1650; J1720; J1815; J1885; J1940; J1956; J2001; J2175; J2248; J2250; J2270; J2370; J2405; J2543; J2704; J2710; J2720; J3010; J3370; J3480; J7030; J7120; P9016; Q0163; Q9963; Q9967

== ENCOUNTER 2017-10-06 17:29 | Inpatient (IN) | payer MEDICAID ==
[~2017-10-06] VITALS: Ht 182.9 cm; Wt 82.1 kg
[~2017-10-06 17:29] MED LIST changes: +BUPR1FIL3 SL; -HYDR-569 PO; +LEVO750T46 PO; -LINE600T6 PO; -METH-603 PO; -SULF1TAB48 PO
[2017-10-06] MEDS ORDERED: ondansetron/PF 4mg/2ml inj IV ONE (17:50)
[2017-10-06] MEDS ORDERED: normal saline 1000ML IV soln IVB ONE ×2 (17:50→19:05)
[2017-10-06] MEDS ORDERED: LORazepam 2 mg/ml vial IV ONE (18:35)
[2017-10-06] MEDS ORDERED: proCHLORperazine 10 MG/2 ml inj IV ONE (18:35)
[2017-10-06 18:37] LABS: BASOPHILS % (AUTO) 0.2 % (0-1); EOSINOPHILS % (AUTO) 0.1 % (0-6); HEMATOCRIT 32.6 % (42.0-52.0); HEMOGLOBIN 11.2 g/dl (14.0-17.9); LYMPHOCYTES # (AUTO) 0.8 X10'3 (1.1-4.8); LYMPHOCYTES % (AUTO) 5.5 % (21-51); MEAN CORPUSCULAR HEMOGLOBIN 28.5 PG (27.0-31.0); MEAN CORPUSCULAR HGB CONC 34.4 % (33.0-36.5); MEAN CORPUSCULAR VOLUME 82.8 FL (78-98); MEAN PLATELET VOLUME 10.9 FL (7.4-10.4); MONOCYTES # (AUTO) 0.2 X10'3 (0-0.9); MONOCYTES % (AUTO) 1.6 % (2-12); NEUTROPHILS % (AUTO) 92.6 % (42-75); RED BLOOD COUNT 3.94 X10'6 (4.70-6.10); RED CELL DISTRIBUTION WIDTH 16.3 % (11.5-14.5); WHITE BLOOD COUNT 14.1 X10'3 (4.5-11.0)
[2017-10-06 19:18] LABS: INR 1.4 INR; PARTIAL THROMBOPLASTIN TIME 36 SECONDS (22-32); PROTHROMBIN TIME 14.7 SECONDS (9.0-12.0)
[2017-10-06 19:22] LABS: ALANINE AMINOTRANSFERASE 8 U/L (12-78); ALBUMIN 2.2 G/DL (3.4-5.0); ALBUMIN/GLOBULIN RATIO 0.3 (1.1-1.5); ALKALINE PHOSPHATASE 122 IU/L (46-116); ANION GAP 13 (8-16); ASPARTATE AMINO TRANSFERASE 19 U/L (10-37); BILIRUBIN,TOTAL 1.4 MG/DL (0.1-1.0); BLOOD UREA NITROGEN 27 MG/DL (7-18); BUN/CREATININE RATIO 13.4 (5.4-32.0); CALCIUM 7.8 MG/DL (8.5-10.1); CHLORIDE 97 MMOL/L (99-107); CREATININE 2.02 MG/DL (0.60-1.10); SODIUM 130 MMOL/L (135-145); TOTAL CARBON DIOXIDE 20.3 MMOL/L (24-32); TOTAL PROTEIN 9.1 G/DL (6.4-8.2); eGFR 39 ML/MIN
[2017-10-06 19:23] LABS: GLUCOSE 125 MG/DL (70-104)
[2017-10-06] MEDS ORDERED: piperacillin/tazo 3.375gm/50ml 50 ML IV ONE (20:00)
[2017-10-06] MEDS ORDERED: pantoprazole 40 MG vial IV ONE (20:00)
[2017-10-06] MEDS ORDERED: vancomycin/NS 1 GM ADD-VANTAGE 250 ML IV ONE (20:00)
[2017-10-06 20:23] LABS: OCCULT BLOOD STOOL NEGATIVE (Neg)
[2017-10-06 22:17] LABS: CLARITY,URINE CLEAR (Clear); COLOR,URINE YELLOW (Yellow); GLUCOSE, URINE NEGATIVE (Neg); KETONES,URINE NEGATIVE (Neg); LEUKOCYTE ESTERASE ,URINE TRACE (Neg); NITRITES, URINE NEGATIVE (Neg); OCCULT BLOOD,URINE TRACE-INTACT (Neg); PH,URINE 5.5 (4.8-8.0); PROTEIN,URINE 100 mg/dl (Neg); UROBILINOGEN,URINE 0.2 E.U/dL (0.2-1.0)
[2017-10-06 22:18] LABS: UA COLLECTION TYPE STRAIGHT CATH
[2017-10-06 22:28] LABS: BACTERIA,URINE FEW /HPF (Neg); MUCUS STRANDS NONE SEEN /LPF (Neg); RBC,URINE 0-2 /HPF (0-2); SQUAMOUS EPITHELIAL CELL,UR NONE SEEN /LPF (FEW); URINE AMPHETAMINE SCREEN NEGATIVE (Neg); URINE BARBITUATE SCREEN NEGATIVE (Neg); URINE BENZODIAZEPINES SCREEN NEGATIVE (Neg); URINE CANNABINOID SCREEN NEGATIVE (Neg); URINE COCAINE SCREEN NEGATIVE (Neg); URINE METHADONE SCREEN NEGATIVE (Neg); URINE OPIATE SCREEN POSITIVE (Neg); URINE PHENCYCLIDINE SCREEN NEGATIVE (Neg); WBC,URINE 0-4 /HPF (0-4)
[2017-10-06 22:29] LABS: AMORPHOUS URATES 3+
[2017-10-06] MEDS ORDERED: magnesium hydroxide 30ml (MOM) UD suspension PO PRN (22:45)
[2017-10-06] MEDS: normal saline 1000ml 1,000 ML IV SCH (23:14)
[2017-10-06 23:45] VITALS: BP 123/59
[2017-10-07] MEDS: piperacillin/tazo 3.375gm/50ml 50 ML IV SCH ×3 (02:35→14:00)
[2017-10-07] MEDS: acetaminophen 325mg tablet PO PRN ×2 (02:41→17:43)
[2017-10-07 03:00] VITALS: BP 95/57
[2017-10-07] MEDS ORDERED: LORazepam 2 mg/ml vial IV ONE (03:40)
[2017-10-07 06:00] VITALS: BP 93/52
[2017-10-07] MEDS: normal saline 1000ml 1,000 ML IV SCH ×3 (06:43→23:54)
[2017-10-07 07:27] LABS: BASOPHILS % (AUTO) 0.4 % (0-1); EOSINOPHILS % (AUTO) 0 % (0-6); HEMATOCRIT 23.4 % (42.0-52.0); LYMPHOCYTES # (AUTO) 0.9 X10'3 (1.1-4.8); MEAN CORPUSCULAR HEMOGLOBIN 27.8 PG (27.0-31.0); MEAN CORPUSCULAR HGB CONC 34.1 % (33.0-36.5); MEAN CORPUSCULAR VOLUME 81.4 FL (78-98); MEAN PLATELET VOLUME 11.4 FL (7.4-10.4); MONOCYTES # (AUTO) 0.6 X10'3 (0-0.9); MONOCYTES % (AUTO) 6.6 % (2-12); NEUTROPHILS # (AUTO) 7.6 X10'3 (1.8-7.7); RED BLOOD COUNT 2.87 X10'6 (4.70-6.10); RED CELL DISTRIBUTION WIDTH 15.9 % (11.5-14.5); WHITE BLOOD COUNT 9.2 X10'3 (4.5-11.0)
[2017-10-07 07:43] LABS: ALBUMIN 1.7 G/DL (3.4-5.0); ANION GAP 12 (8-16); BLOOD UREA NITROGEN 26 MG/DL (7-18); CHLORIDE 104 MMOL/L (99-107); CREATININE 1.63 MG/DL (0.60-1.10); POTASSIUM 3.2 MMOL/L (3.5-5.1); SODIUM 135 MMOL/L (135-145); TOTAL CARBON DIOXIDE 19.4 MMOL/L (24-32); eGFR 50 ML/MIN
[2017-10-07 07:45] LABS: PLATELET ESTIMATE DECREASED
[2017-10-07 07:46] LABS: ANISOCYTOSIS 1+; SCHISTOCYTES 1+
[2017-10-07 07:49] LABS: PLATELET COUNT 32 X10'3 (140-440)
[2017-10-07 07:50] LABS: GLUCOSE 102 MG/DL (70-104)
[2017-10-07] MEDS: heparin, porcine 5000 units/ml vial SQ SCH ×2 (08:00→20:00)
[2017-10-07] MEDS ORDERED: potassium Cl 40MEQ/NS 500ml 500 ML IV PRN ×2 (08:05)
[2017-10-07] MEDS ORDERED: potassium Cl 20 mEq SR tablet PO PRN (08:05)
[2017-10-07] MEDS: potassium Cl 20 mEq SR tablet PO PRN ×3 (10:37→23:53)
[2017-10-07] MEDS: vancomycin inj 1,250 MG in normal saline 250ml IV soln 250 ML IV SCH ×2 (10:37→21:48)
[2017-10-07 11:00] VITALS: BP 80/48
[2017-10-07] MEDS ORDERED: LORA-269 PO (11:18)
[2017-10-07 13:08] LABS: PLATELET COUNT 49 X10'3 (140-440)
[2017-10-07] MEDS ORDERED: NO HOME MEDS (13:53)
[2017-10-07 15:00] VITALS: BP 98/57
[2017-10-07] MEDS ORDERED: hydrOXYzine 25 MG tablet PO PRN (16:00)
[2017-10-07] MEDS: diphenoxylate/atropine tablet (Lomotil) PO PRN (17:32)
[2017-10-07 19:00] VITALS: BP 100/56
[2017-10-07] MEDS: cloNIDine 0.1 mg tablet PO SCH (21:00)
[2017-10-07] MEDS: Melatonin 3mg tablet PO SCH (21:48)
[2017-10-07 23:00] VITALS: BP 90/49
[2017-10-08 03:00] VITALS: BP 88/51
[2017-10-08 05:44] LABS: BASOPHILS % (AUTO) 0.7 % (0-1); EOSINOPHILS # (AUTO) 0.1 X10'3 (0-0.9); EOSINOPHILS % (AUTO) 1.3 % (0-6); HEMATOCRIT 24.9 % (42.0-52.0); HEMOGLOBIN 8.5 g/dl (14.0-17.9); LYMPHOCYTES % (AUTO) 18.5 % (21-51); MEAN CORPUSCULAR HEMOGLOBIN 28.1 PG (27.0-31.0); MEAN CORPUSCULAR HGB CONC 34.3 % (33.0-36.5); MEAN PLATELET VOLUME 10.1 FL (7.4-10.4); MONOCYTES # (AUTO) 0.3 X10'3 (0-0.9); MONOCYTES % (AUTO) 5.4 % (2-12); NEUTROPHILS # (AUTO) 3.9 X10'3 (1.8-7.7); NEUTROPHILS % (AUTO) 74.1 % (42-75); RED BLOOD COUNT 3.03 X10'6 (4.70-6.10); RED CELL DISTRIBUTION WIDTH 16.5 % (11.5-14.5); WHITE BLOOD COUNT 5.3 X10'3 (4.5-11.0)
[2017-10-08 06:01] LABS: ALBUMIN 1.7 G/DL (3.4-5.0); ANION GAP 6 (8-16); ANISOCYTOSIS 1+; BLOOD UREA NITROGEN 20 MG/DL (7-18); BUN/CREATININE RATIO 18.5 (5.4-32.0); CALCIUM 7.1 MG/DL (8.5-10.1); CHLORIDE 107 MMOL/L (99-107); CREATININE 1.08 MG/DL (0.60-1.10); PLATELET COUNT 27 X10'3 (140-440); PLATELET ESTIMATE DECREASED; POTASSIUM 3.9 MMOL/L (3.5-5.1); SODIUM 135 MMOL/L (135-145); TOTAL CARBON DIOXIDE 22.3 MMOL/L (24-32); eGFR 81 ML/MIN
[2017-10-08 06:02] LABS: ELLIPTOCYTES FEW; SCHISTOCYTES FEW; TEAR DROP CELLS FEW
[2017-10-08 06:05] LABS: GLUCOSE 105 MG/DL (70-104)
[2017-10-08] MEDS: normal saline 1000ml 1,000 ML IV SCH ×3 (06:43→22:43)
[2017-10-08 06:48] VITALS: BP 87/57
[2017-10-08] MEDS: cloNIDine 0.1 mg tablet PO SCH ×3 (08:00→20:21)
[2017-10-08] MEDS ORDERED: gentamicin in saline, iso-osm 80 MG/50 ML premix IV SCH (08:00)
[2017-10-08] MEDS ORDERED: gentamicin inj 80 MG in normal saline 100ml IV soln 98 ML IV SCH (08:00)
[2017-10-08] MEDS: rifampin 300mg capsule PO SCH ×2 (08:41→20:15)
[2017-10-08] MEDS: gentamicin inj 60 MG in normal saline 100ml IV soln 98.5 ML IV SCH ×2 (08:41→20:14)
[2017-10-08] MEDS: buprenorphine/naloxone 2-0.5mg sublingual tablet SL PRN ×2 (08:54→17:25)
[2017-10-08] MEDS: acetaminophen 325mg tablet PO PRN (09:02)
[2017-10-08] MEDS: vancomycin inj 1,250 MG in normal saline 250ml IV soln 250 ML IV SCH ×2 (10:32→17:22)
[2017-10-08] MEDS: diphenoxylate/atropine tablet (Lomotil) PO PRN (10:41)
[2017-10-08 13:41] VITALS: BP 101/53
[2017-10-08 17:24] VITALS: BP 99/55
[2017-10-08 20:00] VITALS: BP 93/63
[2017-10-08] MEDS: Melatonin 3mg tablet PO SCH (20:15)
[2017-10-08] MEDS: lactobacillus rhamnosus 10,000 MMU CELLS/CAPSULE PO SCH (20:15)
[2017-10-08] MEDS ORDERED: VANCOMYCIN LEVEL IV NR (20:30)
[2017-10-08 22:00] VITALS: BP 108/65
[2017-10-09] VITALS (7 sets, daily range): BP systolic 94–150; BP diastolic 53–93
[2017-10-09] MEDS: normal saline 1000ml 1,000 ML IV SCH ×4 (00:33→23:37)
[2017-10-09] MEDS: vancomycin inj 1,250 MG in normal saline 250ml IV soln 250 ML IV SCH ×2 (00:34→08:58)
[2017-10-09] MEDS: acetaminophen 325mg tablet PO PRN (01:02)
[2017-10-09] MEDS: buprenorphine/naloxone 2-0.5mg sublingual tablet SL PRN (02:36)
[2017-10-09] MEDS ORDERED: GENTAMICIN TROUGH IV ONE (07:30)
[2017-10-09 07:50] LABS: BASOPHILS % (AUTO) 0.7 % (0-1); EOSINOPHILS # (AUTO) 0.1 X10'3 (0-0.9); EOSINOPHILS % (AUTO) 1.2 % (0-6); HEMATOCRIT 24.8 % (42.0-52.0); HEMOGLOBIN 8.3 g/dl (14.0-17.9); LYMPHOCYTES # (AUTO) 1.1 X10'3 (1.1-4.8); LYMPHOCYTES % (AUTO) 19.9 % (21-51); MEAN CORPUSCULAR HEMOGLOBIN 27.7 PG (27.0-31.0); MEAN CORPUSCULAR HGB CONC 33.6 % (33.0-36.5); MEAN CORPUSCULAR VOLUME 82.4 FL (78-98); MEAN PLATELET VOLUME 12.6 FL (7.4-10.4); MONOCYTES # (AUTO) 0.4 X10'3 (0-0.9); MONOCYTES % (AUTO) 7.3 % (2-12); NEUTROPHILS % (AUTO) 70.9 % (42-75); RED CELL DISTRIBUTION WIDTH 16.3 % (11.5-14.5); WHITE BLOOD COUNT 5.6 X10'3 (4.5-11.0)
[2017-10-09] MEDS: cloNIDine 0.1 mg tablet PO SCH ×3 (08:00→20:55)
[2017-10-09 08:05] LABS: ALBUMIN 1.6 G/DL (3.4-5.0); ANION GAP 10 (8-16); BLOOD UREA NITROGEN 9 MG/DL (7-18); BUN/CREATININE RATIO 9.4 (5.4-32.0); CALCIUM 7.2 MG/DL (8.5-10.1); CHLORIDE 107 MMOL/L (99-107); CREATININE 0.96 MG/DL (0.60-1.10); POTASSIUM 3.6 MMOL/L (3.5-5.1); SODIUM 138 MMOL/L (135-145); TOTAL CARBON DIOXIDE 21.5 MMOL/L (24-32); eGFR > 90 ML/MIN
[2017-10-09 08:08] LABS: GLUCOSE 97 MG/DL (70-104); PLATELET COUNT 44 X10'3 (140-440)
[2017-10-09 08:19] LABS: VANCOMYCIN,TROUGH 27.4 UG/ML (6.0-14.0)
[2017-10-09] MEDS ORDERED: VANCOMYCIN LEVEL IV ONE (08:30)
[2017-10-09] MEDS: rifampin 300mg capsule PO SCH ×2 (08:43→20:55)
[2017-10-09] MEDS: gentamicin inj 60 MG in normal saline 100ml IV soln 98.5 ML IV SCH ×2 (08:43→21:15)
[2017-10-09] MEDS: lactobacillus rhamnosus 10,000 MMU CELLS/CAPSULE PO SCH ×2 (08:43→20:55)
[2017-10-09] MEDS: buprenorphine/naloxone 2-0.5mg sublingual tablet SL SCH (09:36)
[2017-10-09] MEDS: vancomycin/NS 1 GM ADD-VANTAGE 250 ML IV SCH ×2 (11:32→19:40)
[2017-10-09] MEDS: Melatonin 3mg tablet PO SCH (20:55)
[2017-10-10 02:00] VITALS: BP 102/72
[2017-10-10] MEDS: vancomycin/NS 1 GM ADD-VANTAGE 250 ML IV SCH ×2 (02:48→11:00)
[2017-10-10 06:59] VITALS: BP 135/85
[2017-10-10 07:38] LABS: ALBUMIN 1.7 G/DL (3.4-5.0); ANION GAP 11 (8-16); BLOOD UREA NITROGEN 7 MG/DL (7-18); BUN/CREATININE RATIO 6.9 (5.4-32.0); CALCIUM 7.3 MG/DL (8.5-10.1); CHLORIDE 107 MMOL/L (99-107); CREATININE 1.01 MG/DL (0.60-1.10); POTASSIUM 3.8 MMOL/L (3.5-5.1); SODIUM 137 MMOL/L (135-145); TOTAL CARBON DIOXIDE 19.2 MMOL/L (24-32); eGFR 87 ML/MIN
[2017-10-10 07:41] LABS: GLUCOSE 94 MG/DL (70-104)
[2017-10-10] MEDS: diphenoxylate/atropine tablet (Lomotil) PO PRN (07:55)
[2017-10-10] MEDS: cloNIDine 0.1 mg tablet PO SCH ×3 (07:55→21:14)
[2017-10-10] MEDS: lactobacillus rhamnosus 10,000 MMU CELLS/CAPSULE PO SCH ×2 (07:55→21:14)
[2017-10-10] MEDS: rifampin 300mg capsule PO SCH ×2 (07:56→21:14)
[2017-10-10] MEDS: buprenorphine/naloxone 2-0.5mg sublingual tablet SL SCH (07:56)
[2017-10-10] MEDS ORDERED: buprenorphine/naloxone 2-0.5mg sublingual tablet SL SCH (08:00)
[2017-10-10 09:01] LABS: BASOPHILS % (AUTO) 0.2 % (0-1); EOSINOPHILS # (AUTO) 0.1 X10'3 (0-0.9); HEMATOCRIT 23.5 % (42.0-52.0); LYMPHOCYTES # (AUTO) 0.8 X10'3 (1.1-4.8); LYMPHOCYTES % (AUTO) 14.5 % (21-51); MEAN CORPUSCULAR HEMOGLOBIN 27.6 PG (27.0-31.0); MEAN CORPUSCULAR HGB CONC 34.2 % (33.0-36.5); MEAN CORPUSCULAR VOLUME 80.7 FL (78-98); MEAN PLATELET VOLUME 10.1 FL (7.4-10.4); MONOCYTES # (AUTO) 0.5 X10'3 (0-0.9); MONOCYTES % (AUTO) 8.5 % (2-12); NEUTROPHILS # (AUTO) 4.2 X10'3 (1.8-7.7); NEUTROPHILS % (AUTO) 75.8 % (42-75); PLATELET COUNT 53 X10'3 (140-440); RED BLOOD COUNT 2.91 X10'6 (4.70-6.10); RED CELL DISTRIBUTION WIDTH 16.7 % (11.5-14.5); WHITE BLOOD COUNT 5.6 X10'3 (4.5-11.0)
[2017-10-10 09:14] LABS: LARGE PLATELETS FEW; PLATELET ESTIMATE DECREASED
[2017-10-10] MEDS: gentamicin inj 80 MG in normal saline 100ml IV soln 98 ML IV SCH ×2 (09:20→21:14)
[2017-10-10] MEDS ORDERED: VANCOMYCIN LEVEL IV NR (10:30)
[2017-10-10] MEDS: VANCOMYCIN 750MG IV in NS 250 ML IV SCH ×2 (13:10→21:51)
[2017-10-10 13:43] VITALS: BP 110/73
[2017-10-10] MEDS: normal saline 1000ml 1,000 ML IV SCH ×2 (14:33→21:51)
[2017-10-10 17:17] VITALS: BP 117/78
[2017-10-10 18:00] VITALS: BP 121/74
[2017-10-10] MEDS: Melatonin 3mg tablet PO SCH (21:15)
[2017-10-10] MEDS: CITALOpram 10mg tablet PO SCH (21:15)
[2017-10-10 22:00] VITALS: BP 102/66
[2017-10-11 02:00] VITALS: BP 115/63
[2017-10-11] MEDS: VANCOMYCIN 750MG IV in NS 250 ML IV SCH ×3 (04:25→21:37)
[2017-10-11 05:51] LABS: ALBUMIN 1.6 G/DL (3.4-5.0); ANION GAP 8 (8-16); BLOOD UREA NITROGEN 9 MG/DL (7-18); BUN/CREATININE RATIO 8.6 (5.4-32.0); CALCIUM 7.4 MG/DL (8.5-10.1); CHLORIDE 108 MMOL/L (99-107); CREATININE 1.05 MG/DL (0.60-1.10); POTASSIUM 3.6 MMOL/L (3.5-5.1); SODIUM 138 MMOL/L (135-145); TOTAL CARBON DIOXIDE 21.6 MMOL/L (24-32); eGFR 84 ML/MIN
[2017-10-11 05:55] LABS: GLUCOSE 97 MG/DL (70-104)
[2017-10-11] MEDS: normal saline 1000ml 1,000 ML IV SCH ×2 (06:43→20:25)
[2017-10-11 06:56] VITALS: BP 148/94
[2017-10-11] MEDS ORDERED: GENTAMICIN TROUGH IV ONE (07:30)
[2017-10-11] MEDS: rifampin 300mg capsule PO SCH ×2 (08:44→20:33)
[2017-10-11] MEDS: gentamicin inj 80 MG in normal saline 100ml IV soln 98 ML IV SCH ×2 (08:44→20:23)
[2017-10-11] MEDS: lactobacillus rhamnosus 10,000 MMU CELLS/CAPSULE PO SCH ×2 (08:44→20:23)
[2017-10-11] MEDS: cloNIDine 0.1 mg tablet PO SCH ×3 (08:44→20:23)
[2017-10-11] MEDS: buprenorphine/naloxone 2-0.5mg sublingual tablet SL SCH (08:44)
[2017-10-11 11:00] VITALS: BP 135/87
[2017-10-11] MEDS ORDERED: VANCOMYCIN LEVEL IV ONE (12:30)
[2017-10-11 15:00] VITALS: BP 144/94
[2017-10-11 18:00] VITALS: BP 142/97
[2017-10-11] MEDS: mag hydrox/Alum hydrox/simeth 30ml oral suspension PO PRN (18:56)
[2017-10-11] MEDS: CITALOpram 10mg tablet PO SCH (20:23)
[2017-10-11] MEDS: Melatonin 3mg tablet PO SCH (20:23)
[2017-10-11 22:00] VITALS: BP 123/74
[2017-10-12 02:00] VITALS: BP 142/86
[2017-10-12] MEDS: ondansetron/PF 4mg/2ml inj IV PRN ×2 (02:25→21:07)
[2017-10-12] MEDS: normal saline 1000ml 1,000 ML IV SCH (04:24)
[2017-10-12] MEDS: VANCOMYCIN 750MG IV in NS 250 ML IV SCH ×3 (04:24→22:40)
[2017-10-12 04:31] LABS: BASOPHILS % (AUTO) 0.5 % (0-1); EOSINOPHILS # (AUTO) 0.1 X10'3 (0-0.9); HEMATOCRIT 22.9 % (42.0-52.0); HEMOGLOBIN 7.7 g/dl (14.0-17.9); LYMPHOCYTES # (AUTO) 0.8 X10'3 (1.1-4.8); LYMPHOCYTES % (AUTO) 9.6 % (21-51); MEAN CORPUSCULAR HEMOGLOBIN 27.3 PG (27.0-31.0); MEAN CORPUSCULAR HGB CONC 33.5 % (33.0-36.5); MEAN CORPUSCULAR VOLUME 81.5 FL (78-98); MEAN PLATELET VOLUME 10.4 FL (7.4-10.4); MONOCYTES # (AUTO) 0.8 X10'3 (0-0.9); MONOCYTES % (AUTO) 10.2 % (2-12); NEUTROPHILS # (AUTO) 6.2 X10'3 (1.8-7.7); NEUTROPHILS % (AUTO) 78.7 % (42-75); PLATELET COUNT 85 X10'3 (140-440); RED BLOOD COUNT 2.82 X10'6 (4.70-6.10); RED CELL DISTRIBUTION WIDTH 16.4 % (11.5-14.5); WHITE BLOOD COUNT 7.9 X10'3 (4.5-11.0)
[2017-10-12 07:00] VITALS: BP 132/84
[2017-10-12] MEDS: cloNIDine 0.1 mg tablet PO SCH ×3 (08:04→21:54)
[2017-10-12] MEDS: lactobacillus rhamnosus 10,000 MMU CELLS/CAPSULE PO SCH ×2 (08:04→22:39)
[2017-10-12] MEDS: gentamicin inj 80 MG in normal saline 100ml IV soln 98 ML IV SCH ×2 (08:04→21:08)
[2017-10-12] MEDS: rifampin 300mg capsule PO SCH ×2 (08:04→21:53)
[2017-10-12] MEDS: buprenorphine/naloxone 2-0.5mg sublingual tablet SL SCH (08:04)
[2017-10-12 11:00] VITALS: BP 110/83
[2017-10-12] MEDS ORDERED: VANCOMYCIN LEVEL IV NR (12:30)
[2017-10-12] MEDS: mag hydrox/Alum hydrox/simeth 30ml oral suspension PO PRN ×2 (13:46→21:08)
[2017-10-12] MEDS ORDERED: potassium Cl 20 mEq SR tablet PO PRN (14:05)
[2017-10-12] MEDS ORDERED: potassium Cl 40MEQ/NS 500ml 500 ML IV PRN ×2 (14:05)
[2017-10-12 15:00] VITALS: BP 120/78
[2017-10-12 18:00] VITALS: BP 132/90
[2017-10-12] MEDS: CITALOpram 10mg tablet PO SCH (21:00)
[2017-10-12] MEDS: Melatonin 3mg tablet PO SCH (21:54)
[2017-10-12 22:00] VITALS: BP 122/66
[2017-10-13 02:00] VITALS: BP 102/66
[2017-10-13] MEDS: VANCOMYCIN 750MG IV in NS 250 ML IV SCH ×3 (05:41→22:03)
[2017-10-13 06:00] VITALS: BP 126/78
[2017-10-13 06:19] LABS: BASOPHILS # (AUTO) 0.1 X10'3 (0-0.2); BASOPHILS % (AUTO) 0.8 % (0-1); EOSINOPHILS % (AUTO) 0.2 % (0-6); HEMATOCRIT 22.3 % (42.0-52.0); HEMOGLOBIN 7.6 g/dl (14.0-17.9); LYMPHOCYTES # (AUTO) 1.1 X10'3 (1.1-4.8); LYMPHOCYTES % (AUTO) 11.8 % (21-51); MEAN CORPUSCULAR HEMOGLOBIN 27.9 PG (27.0-31.0); MEAN CORPUSCULAR HGB CONC 34.2 % (33.0-36.5); MEAN CORPUSCULAR VOLUME 81.7 FL (78-98); MEAN PLATELET VOLUME 9.9 FL (7.4-10.4); MONOCYTES # (AUTO) 0.5 X10'3 (0-0.9); MONOCYTES % (AUTO) 5.8 % (2-12); NEUTROPHILS # (AUTO) 7.3 X10'3 (1.8-7.7); NEUTROPHILS % (AUTO) 81.4 % (42-75); PLATELET COUNT 70 X10'3 (140-440); RED BLOOD COUNT 2.73 X10'6 (4.70-6.10); RED CELL DISTRIBUTION WIDTH 16.4 % (11.5-14.5)
[2017-10-13 06:21] LABS: ALANINE AMINOTRANSFERASE 6 U/L (12-78); ALBUMIN 1.7 G/DL (3.4-5.0); ALBUMIN/GLOBULIN RATIO 0.3 (1.1-1.5); ALKALINE PHOSPHATASE 64 IU/L (46-116); ANION GAP 9 (8-16); ASPARTATE AMINO TRANSFERASE 13 U/L (10-37); BILIRUBIN,TOTAL 1.4 MG/DL (0.1-1.0); BLOOD UREA NITROGEN 7 MG/DL (7-18); BUN/CREATININE RATIO 6.4 (5.4-32.0); CALCIUM 7.6 MG/DL (8.5-10.1); CHLORIDE 105 MMOL/L (99-107); MAGNESIUM 1.7 MG/DL (1.5-2.4); POTASSIUM 3.6 MMOL/L (3.5-5.1); SODIUM 137 MMOL/L (135-145); TOTAL CARBON DIOXIDE 23.1 MMOL/L (24-32); TOTAL PROTEIN 8.2 G/DL (6.4-8.2); eGFR 79 ML/MIN
[2017-10-13 06:22] LABS: GLUCOSE 99 MG/DL (70-104)
[2017-10-13] MEDS: lactobacillus rhamnosus 10,000 MMU CELLS/CAPSULE PO SCH ×2 (08:37→19:59)
[2017-10-13] MEDS: gentamicin inj 80 MG in normal saline 100ml IV soln 98 ML IV SCH ×2 (08:37→19:57)
[2017-10-13] MEDS: buprenorphine/naloxone 2-0.5mg sublingual tablet SL SCH (08:38)
[2017-10-13] MEDS: cloNIDine 0.1 mg tablet PO SCH ×3 (08:38→22:04)
[2017-10-13] MEDS: rifampin 300mg capsule PO SCH ×2 (08:38→19:59)
[2017-10-13] MEDS: normal saline 1000ml 1,000 ML IV SCH (10:39)
[2017-10-13 11:00] VITALS: BP 121/68
[2017-10-13] MEDS: ondansetron/PF 4mg/2ml inj IV PRN (12:41)
[2017-10-13 15:00] VITALS: BP 116/62
[2017-10-13 19:00] VITALS: BP 120/69
[2017-10-13] MEDS: CITALOpram 10mg tablet PO SCH (21:00)
[2017-10-13] MEDS: Melatonin 3mg tablet PO SCH (22:04)
[2017-10-13 23:00] VITALS: BP 122/79
[2017-10-14 03:00] VITALS: BP 143/88
[2017-10-14] MEDS: VANCOMYCIN 750MG IV in NS 250 ML IV SCH ×2 (04:56→12:46)
[2017-10-14] MEDS: ondansetron/PF 4mg/2ml inj IV PRN ×3 (05:20→18:55)
[2017-10-14 05:45] LABS: BASOPHILS # (AUTO) 0.1 X10'3 (0-0.2); BASOPHILS % (AUTO) 0.6 % (0-1); EOSINOPHILS # (AUTO) 0.1 X10'3 (0-0.9); EOSINOPHILS % (AUTO) 1.2 % (0-6); HEMATOCRIT 23.3 % (42.0-52.0); HEMOGLOBIN 7.9 g/dl (14.0-17.9); LYMPHOCYTES % (AUTO) 8.2 % (21-51); MEAN CORPUSCULAR HEMOGLOBIN 27.8 PG (27.0-31.0); MEAN CORPUSCULAR HGB CONC 33.8 % (33.0-36.5); MEAN CORPUSCULAR VOLUME 82.3 FL (78-98); MEAN PLATELET VOLUME 9.8 FL (7.4-10.4); MONOCYTES % (AUTO) 8.2 % (2-12); NEUTROPHILS # (AUTO) 9.9 X10'3 (1.8-7.7); NEUTROPHILS % (AUTO) 81.8 % (42-75); PLATELET COUNT 79 X10'3 (140-440); RED BLOOD COUNT 2.83 X10'6 (4.70-6.10); WHITE BLOOD COUNT 12.1 X10'3 (4.5-11.0)
[2017-10-14 06:00] VITALS: BP 125/80
[2017-10-14 06:04] LABS: MAGNESIUM 1.7 MG/DL (1.5-2.4); POTASSIUM 3.2 MMOL/L (3.5-5.1)
[2017-10-14] MEDS: lactobacillus rhamnosus 10,000 MMU CELLS/CAPSULE PO SCH ×2 (07:22→22:31)
[2017-10-14] MEDS: gentamicin inj 80 MG in normal saline 100ml IV soln 98 ML IV SCH ×2 (07:22→22:49)
[2017-10-14] MEDS: cloNIDine 0.1 mg tablet PO SCH ×3 (07:22→22:34)
[2017-10-14] MEDS: rifampin 300mg capsule PO SCH ×2 (07:23→22:33)
[2017-10-14] MEDS: buprenorphine/naloxone 2-0.5mg sublingual tablet SL SCH (08:01)
[2017-10-14] MEDS: normal saline 1000ml 1,000 ML IV SCH (08:25)
[2017-10-14 11:00] VITALS: BP 111/68
[2017-10-14 15:00] VITALS: BP 128/79
[2017-10-14 19:00] VITALS: BP 132/70
[2017-10-14] MEDS: CITALOpram 10mg tablet PO SCH (21:00)
[2017-10-14] MEDS: Melatonin 3mg tablet PO SCH (22:31)
[2017-10-14] MEDS: potassium Cl 20 mEq SR tablet PO PRN (22:37)
[2017-10-14 23:00] VITALS: BP 139/77
[2017-10-15] MEDS: VANCOMYCIN 750MG IV in NS 250 ML IV SCH ×4 (00:03→22:34)
[2017-10-15 03:00] VITALS: BP 133/82
[2017-10-15] MEDS: potassium Cl 20 mEq SR tablet PO PRN (03:32)
[2017-10-15] MEDS: normal saline 1000ml 1,000 ML IV SCH (04:26)
[2017-10-15] MEDS: ondansetron/PF 4mg/2ml inj IV PRN ×2 (04:40→21:43)
[2017-10-15 04:45] VITALS: BP 133/99
[2017-10-15 05:44] LABS: BASOPHILS % (AUTO) 0.3 % (0-1); EOSINOPHILS # (AUTO) 0.2 X10'3 (0-0.9); EOSINOPHILS % (AUTO) 1.7 % (0-6); HEMATOCRIT 23.1 % (42.0-52.0); HEMOGLOBIN 7.8 g/dl (14.0-17.9); LYMPHOCYTES # (AUTO) 1.5 X10'3 (1.1-4.8); LYMPHOCYTES % (AUTO) 15.8 % (21-51); MEAN CORPUSCULAR HEMOGLOBIN 27.9 PG (27.0-31.0); MEAN CORPUSCULAR HGB CONC 33.9 % (33.0-36.5); MEAN CORPUSCULAR VOLUME 82.4 FL (78-98); MEAN PLATELET VOLUME 9.4 FL (7.4-10.4); MONOCYTES # (AUTO) 0.5 X10'3 (0-0.9); MONOCYTES % (AUTO) 5.5 % (2-12); NEUTROPHILS # (AUTO) 7.2 X10'3 (1.8-7.7); NEUTROPHILS % (AUTO) 76.7 % (42-75); PLATELET COUNT 66 X10'3 (140-440); RED CELL DISTRIBUTION WIDTH 17.1 % (11.5-14.5); WHITE BLOOD COUNT 9.4 X10'3 (4.5-11.0)
[2017-10-15 05:59] LABS: ALBUMIN 1.8 G/DL (3.4-5.0); ANION GAP 9 (8-16); BLOOD UREA NITROGEN 6 MG/DL (7-18); BUN/CREATININE RATIO 5.2 (5.4-32.0); CALCIUM 7.7 MG/DL (8.5-10.1); CHLORIDE 101 MMOL/L (99-107); CREATININE 1.15 MG/DL (0.60-1.10); MAGNESIUM 1.7 MG/DL (1.5-2.4); POTASSIUM 3.5 MMOL/L (3.5-5.1); SODIUM 133 MMOL/L (135-145); eGFR 75 ML/MIN
[2017-10-15 06:06] LABS: GLUCOSE 98 MG/DL (70-104)
[2017-10-15 07:17] VITALS: BP 127/71
[2017-10-15] MEDS: rifampin 300mg capsule PO SCH ×2 (07:56→21:50)
[2017-10-15] MEDS: cloNIDine 0.1 mg tablet PO SCH ×3 (07:56→21:50)
[2017-10-15] MEDS: lactobacillus rhamnosus 10,000 MMU CELLS/CAPSULE PO SCH ×2 (07:56→21:49)
[2017-10-15] MEDS: buprenorphine/naloxone 2-0.5mg sublingual tablet SL SCH ×2 (09:53→12:26)
[2017-10-15] MEDS: gentamicin inj 80 MG in normal saline 100ml IV soln 98 ML IV SCH ×2 (10:10→21:48)
[2017-10-15 11:21] VITALS: BP 138/88
[2017-10-15 13:57] VITALS: BP 115/69
[2017-10-15 18:00] VITALS: BP 120/71
[2017-10-15] MEDS: CITALOpram 10mg tablet PO SCH (21:00)
[2017-10-15] MEDS: Melatonin 3mg tablet PO SCH (21:50)
[2017-10-15] MEDS: acetaminophen 325mg tablet PO PRN (23:32)
[2017-10-16] VITALS: BP 128/73
[2017-10-16] MEDS: normal saline 1000ml 1,000 ML IV SCH ×2 (00:50→22:08)
[2017-10-16] MEDS: VANCOMYCIN 750MG IV in NS 250 ML IV SCH ×3 (05:26→22:07)
[2017-10-16] MEDS: ondansetron/PF 4mg/2ml inj IV PRN ×2 (05:36→15:48)
[2017-10-16 08:00] VITALS: BP 115/71
[2017-10-16] MEDS: lactobacillus rhamnosus 10,000 MMU CELLS/CAPSULE PO SCH ×2 (08:20→21:06)
[2017-10-16] MEDS: cloNIDine 0.1 mg tablet PO SCH ×3 (08:21→21:07)
[2017-10-16] MEDS: rifampin 300mg capsule PO SCH ×2 (08:21→21:06)
[2017-10-16] MEDS: buprenorphine/naloxone 2-0.5mg sublingual tablet SL SCH ×2 (08:22→13:21)
[2017-10-16] MEDS: gentamicin inj 80 MG in normal saline 100ml IV soln 98 ML IV SCH ×2 (10:55→21:05)
[2017-10-16 11:05] VITALS: BP 124/75
[2017-10-16 12:11] VITALS: BP 124/69
[2017-10-16] MEDS: mag hydrox/Alum hydrox/simeth 30ml oral suspension PO PRN (14:33)
[2017-10-16 14:59] LABS: BASOPHILS # (AUTO) 0.2 X10'3 (0-0.2); BASOPHILS % (AUTO) 1.7 % (0-1); EOSINOPHILS # (AUTO) 0.1 X10'3 (0-0.9); EOSINOPHILS % (AUTO) 1.3 % (0-6); HEMATOCRIT 22.3 % (42.0-52.0); HEMOGLOBIN 7.6 g/dl (14.0-17.9); LYMPHOCYTES # (AUTO) 1.2 X10'3 (1.1-4.8); LYMPHOCYTES % (AUTO) 13.2 % (21-51); MEAN CORPUSCULAR HEMOGLOBIN 27.6 PG (27.0-31.0); MEAN CORPUSCULAR HGB CONC 33.9 % (33.0-36.5); MEAN CORPUSCULAR VOLUME 81.3 FL (78-98); MONOCYTES # (AUTO) 0.4 X10'3 (0-0.9); NEUTROPHILS # (AUTO) 7.4 X10'3 (1.8-7.7); NEUTROPHILS % (AUTO) 79.8 % (42-75); PLATELET COUNT 71 X10'3 (140-440); RED BLOOD COUNT 2.74 X10'6 (4.70-6.10); RED CELL DISTRIBUTION WIDTH 17.3 % (11.5-14.5); WHITE BLOOD COUNT 9.3 X10'3 (4.5-11.0)
[2017-10-16 15:16] LABS: ALBUMIN 1.7 G/DL (3.4-5.0); ANION GAP 7 (8-16); BLOOD UREA NITROGEN 8 MG/DL (7-18); BUN/CREATININE RATIO 6.7 (5.4-32.0); CALCIUM 7.6 MG/DL (8.5-10.1); CHLORIDE 102 MMOL/L (99-107); CREATININE 1.19 MG/DL (0.60-1.10); MAGNESIUM 1.6 MG/DL (1.5-2.4); POTASSIUM 3.9 MMOL/L (3.5-5.1); SODIUM 134 MMOL/L (135-145); TOTAL CARBON DIOXIDE 25.5 MMOL/L (24-32); eGFR 72 ML/MIN
[2017-10-16 15:18] LABS: GLUCOSE 103 MG/DL (70-104)
[2017-10-16] MEDS ORDERED: temazepam 15mg capsule PO PRN (17:55)
[2017-10-16 18:00] VITALS: BP 140/78
[2017-10-16] MEDS ORDERED: GENTAMICIN TROUGH IV ONE (19:30)
[2017-10-16] MEDS: CITALOpram 10mg tablet PO SCH (21:00)
[2017-10-16] MEDS: Melatonin 3mg tablet PO SCH (21:06)
[2017-10-17] VITALS: BP 111/67
[2017-10-17] MEDS: ondansetron/PF 4mg/2ml inj IV PRN ×2 (04:52→22:52)
[2017-10-17] MEDS: VANCOMYCIN 750MG IV in NS 250 ML IV SCH ×3 (04:56→22:56)
[2017-10-17 05:58] LABS: BASOPHILS # (AUTO) 0.1 X10'3 (0-0.2); BASOPHILS % (AUTO) 0.6 % (0-1); EOSINOPHILS # (AUTO) 0.1 X10'3 (0-0.9); EOSINOPHILS % (AUTO) 1.2 % (0-6); HEMATOCRIT 23.7 % (42.0-52.0); HEMOGLOBIN 7.9 g/dl (14.0-17.9); LYMPHOCYTES # (AUTO) 1.7 X10'3 (1.1-4.8); LYMPHOCYTES % (AUTO) 15.4 % (21-51); MEAN CORPUSCULAR HEMOGLOBIN 27.8 PG (27.0-31.0); MEAN CORPUSCULAR HGB CONC 33.5 % (33.0-36.5); MEAN CORPUSCULAR VOLUME 83.2 FL (78-98); MEAN PLATELET VOLUME 9.8 FL (7.4-10.4); MONOCYTES # (AUTO) 0.6 X10'3 (0-0.9); MONOCYTES % (AUTO) 5.3 % (2-12); NEUTROPHILS # (AUTO) 8.3 X10'3 (1.8-7.7); NEUTROPHILS % (AUTO) 77.5 % (42-75); PLATELET COUNT 68 X10'3 (140-440); RED BLOOD COUNT 2.85 X10'6 (4.70-6.10); RED CELL DISTRIBUTION WIDTH 17.3 % (11.5-14.5); WHITE BLOOD COUNT 10.7 X10'3 (4.5-11.0)
[2017-10-17 06:13] LABS: ALBUMIN 1.8 G/DL (3.4-5.0); ANION GAP 9 (8-16); BLOOD UREA NITROGEN 8 MG/DL (7-18); CALCIUM 7.6 MG/DL (8.5-10.1); CHLORIDE 102 MMOL/L (99-107); CREATININE 1.34 MG/DL (0.60-1.10); MAGNESIUM 1.6 MG/DL (1.5-2.4); POTASSIUM 3.7 MMOL/L (3.5-5.1); SODIUM 134 MMOL/L (135-145); TOTAL CARBON DIOXIDE 23.2 MMOL/L (24-32); eGFR 63 ML/MIN
[2017-10-17 06:19] LABS: GLUCOSE 98 MG/DL (70-104)
[2017-10-17 07:11] VITALS: BP 121/80
[2017-10-17] MEDS: rifampin 300mg capsule PO SCH ×2 (07:43→19:46)
[2017-10-17] MEDS: lactobacillus rhamnosus 10,000 MMU CELLS/CAPSULE PO SCH ×2 (07:43→19:46)
[2017-10-17] MEDS: cloNIDine 0.1 mg tablet PO SCH ×3 (07:43→22:53)
[2017-10-17] MEDS: buprenorphine/naloxone 2-0.5mg sublingual tablet SL SCH (07:43)
[2017-10-17] MEDS: gentamicin inj 80 MG in normal saline 100ml IV soln 98 ML IV SCH ×2 (07:44→19:47)
[2017-10-17 11:38] VITALS: BP 112/51
[2017-10-17 18:00] VITALS: BP 125/63
[2017-10-17] MEDS: mag hydrox/Alum hydrox/simeth 30ml oral suspension PO PRN (19:46)
[2017-10-17] MEDS: CITALOpram 10mg tablet PO SCH (21:00)
[2017-10-17] MEDS: normal saline 1000ml 1,000 ML IV SCH (22:53)
[2017-10-17] MEDS: Melatonin 3mg tablet PO SCH (22:53)
[2017-10-17] MEDS: diatr meglu/diatrizoate 30ml oral sol.-(3 dose) bottle PO SCH (22:57)
[2017-10-18] VITALS: BP 145/79
[2017-10-18] MEDS: mag hydrox/Alum hydrox/simeth 30ml oral suspension PO PRN ×2 (00:16→14:49)
[2017-10-18] MEDS: VANCOMYCIN 750MG IV in NS 250 ML IV SCH ×3 (05:17→22:22)
[2017-10-18 06:09] LABS: BASOPHILS % (AUTO) 0.2 % (0-1); EOSINOPHILS # (AUTO) 0.1 X10'3 (0-0.9); EOSINOPHILS % (AUTO) 1.1 % (0-6); HEMOGLOBIN 7.4 g/dl (14.0-17.9); LYMPHOCYTES # (AUTO) 1.4 X10'3 (1.1-4.8); LYMPHOCYTES % (AUTO) 13.1 % (21-51); MEAN CORPUSCULAR HEMOGLOBIN 27.8 PG (27.0-31.0); MEAN CORPUSCULAR HGB CONC 33.8 % (33.0-36.5); MEAN CORPUSCULAR VOLUME 82.4 FL (78-98); MEAN PLATELET VOLUME 9.8 FL (7.4-10.4); MONOCYTES # (AUTO) 0.8 X10'3 (0-0.9); MONOCYTES % (AUTO) 7.7 % (2-12); NEUTROPHILS # (AUTO) 8.2 X10'3 (1.8-7.7); NEUTROPHILS % (AUTO) 77.9 % (42-75); PLATELET COUNT 65 X10'3 (140-440); RED BLOOD COUNT 2.66 X10'6 (4.70-6.10); RED CELL DISTRIBUTION WIDTH 17.2 % (11.5-14.5); WHITE BLOOD COUNT 10.5 X10'3 (4.5-11.0)
[2017-10-18 06:13] LABS: HEMATOCRIT 21.9 % (42.0-52.0)
[2017-10-18 06:21] LABS: ALBUMIN 1.7 G/DL (3.4-5.0); ANION GAP 10 (8-16); BLOOD UREA NITROGEN 10 MG/DL (7-18); BUN/CREATININE RATIO 7.7 (5.4-32.0); CALCIUM 7.7 MG/DL (8.5-10.1); CHLORIDE 101 MMOL/L (99-107); POTASSIUM 3.5 MMOL/L (3.5-5.1); SODIUM 134 MMOL/L (135-145); TOTAL CARBON DIOXIDE 23.4 MMOL/L (24-32); eGFR 65 ML/MIN
[2017-10-18 06:22] LABS: GLUCOSE 100 MG/DL (70-104)
[2017-10-18 07:00] VITALS: BP 115/75
[2017-10-18 07:03] LABS: HYPOCHROMASIA 1+; PLATELET ESTIMATE DECREASED; POLYCHROMASIA 1+
[2017-10-18 07:04] LABS: ANISOCYTOSIS 2+; POIKILOCYTOSIS 1+; ROULEAUX 1+; SCHISTOCYTES FEW
[2017-10-18] MEDS: diatr meglu/diatrizoate 30ml oral sol.-(3 dose) bottle PO SCH ×2 (07:29→09:27)
[2017-10-18] MEDS: gentamicin inj 80 MG in normal saline 100ml IV soln 98 ML IV SCH ×2 (07:31→19:32)
[2017-10-18] MEDS: rifampin 300mg capsule PO SCH ×2 (09:02→19:32)
[2017-10-18] MEDS: lactobacillus rhamnosus 10,000 MMU CELLS/CAPSULE PO SCH ×2 (09:02→19:32)
[2017-10-18] MEDS: cloNIDine 0.1 mg tablet PO SCH ×3 (09:02→22:23)
[2017-10-18] MEDS: buprenorphine/naloxone 2-0.5mg sublingual tablet SL SCH (09:02)
[2017-10-18 11:00] VITALS: BP 124/75
[2017-10-18] MEDS: normal saline 1000ml 1,000 ML IV SCH (12:25)
[2017-10-18] MEDS: ondansetron/PF 4mg/2ml inj IV PRN (13:46)
[2017-10-18 19:00] VITALS: BP 116/61
[2017-10-18] MEDS: CITALOpram 10mg tablet PO SCH (21:00)
[2017-10-18] MEDS: Melatonin 3mg tablet PO SCH (22:23)
[2017-10-19 00:30] VITALS: BP 119/74
[2017-10-19] MEDS: ondansetron/PF 4mg/2ml inj IV PRN ×2 (03:06→19:47)
[2017-10-19] MEDS: VANCOMYCIN 750MG IV in NS 250 ML IV SCH ×2 (05:13→12:26)
[2017-10-19 07:00] VITALS: BP 110/59
[2017-10-19] MEDS: gentamicin inj 80 MG in normal saline 100ml IV soln 98 ML IV SCH ×2 (08:10→19:47)
[2017-10-19] MEDS: cloNIDine 0.1 mg tablet PO SCH ×2 (08:11→12:26)
[2017-10-19] MEDS: buprenorphine/naloxone 2-0.5mg sublingual tablet SL SCH (08:11)
[2017-10-19] MEDS: rifampin 300mg capsule PO SCH (08:11)
[2017-10-19] MEDS: lactobacillus rhamnosus 10,000 MMU CELLS/CAPSULE PO SCH (08:11)
[2017-10-19] MEDS: normal saline 1000ml 1,000 ML IV SCH (08:25)
[2017-10-19 09:20] LABS: BASOPHILS % (AUTO) 0.5 % (0-1); EOSINOPHILS # (AUTO) 0.1 X10'3 (0-0.9); EOSINOPHILS % (AUTO) 1.2 % (0-6); HEMATOCRIT 22.5 % (42.0-52.0); HEMOGLOBIN 7.5 g/dl (14.0-17.9); LYMPHOCYTES # (AUTO) 1.4 X10'3 (1.1-4.8); LYMPHOCYTES % (AUTO) 14.3 % (21-51); MEAN CORPUSCULAR HEMOGLOBIN 27.5 PG (27.0-31.0); MEAN CORPUSCULAR HGB CONC 33.4 % (33.0-36.5); MEAN CORPUSCULAR VOLUME 82.3 FL (78-98); MEAN PLATELET VOLUME 9.7 FL (7.4-10.4); MONOCYTES # (AUTO) 0.9 X10'3 (0-0.9); MONOCYTES % (AUTO) 8.8 % (2-12); NEUTROPHILS # (AUTO) 7.6 X10'3 (1.8-7.7); NEUTROPHILS % (AUTO) 75.2 % (42-75); PLATELET COUNT 76 X10'3 (140-440); RED BLOOD COUNT 2.74 X10'6 (4.70-6.10); RED CELL DISTRIBUTION WIDTH 17.4 % (11.5-14.5); WHITE BLOOD COUNT 10.1 X10'3 (4.5-11.0)
[2017-10-19 09:39] LABS: ALBUMIN 1.7 G/DL (3.4-5.0); ALBUMIN/GLOBULIN RATIO 0.2 (1.1-1.5); ALKALINE PHOSPHATASE 65 IU/L (46-116); ANION GAP 10 (8-16); ASPARTATE AMINO TRANSFERASE 11 U/L (10-37); BILIRUBIN,TOTAL 0.9 MG/DL (0.1-1.0); BLOOD UREA NITROGEN 11 MG/DL (7-18); BUN/CREATININE RATIO 7.3 (5.4-32.0); CALCIUM 7.7 MG/DL (8.5-10.1); CHLORIDE 99 MMOL/L (99-107); CREATININE 1.51 MG/DL (0.60-1.10); POTASSIUM 3.6 MMOL/L (3.5-5.1); SODIUM 131 MMOL/L (135-145); TOTAL CARBON DIOXIDE 22.1 MMOL/L (24-32); TOTAL PROTEIN 8.9 G/DL (6.4-8.2); eGFR 55 ML/MIN
[2017-10-19 09:44] LABS: ALANINE AMINOTRANSFERASE < 6 U/L (12-78); GLUCOSE 120 MG/DL (70-104)
[2017-10-19 11:48] LABS: C-REACTIVE PROTEIN 7.25 MG/DL (0.0-0.5)
[2017-10-19] MEDS ORDERED: VANCOMYCIN LEVEL IV ONE (12:30)
[2017-10-19] MEDS ORDERED: normal saline 1000ml 1,000 ML IV ONE (17:25)
[2017-10-19 19:00] VITALS: BP 131/87
[2017-10-19] MEDS: CITALOpram 10mg tablet PO SCH (21:00)
[2017-10-19 23:18] VITALS: BP 112/65
[2017-10-20] MEDS: vancomycin inj 500 MG in normal saline 100ml IV soln 100 ML IV SCH ×2 (00:18→14:53)
[2017-10-20] MEDS: lactobacillus rhamnosus 10,000 MMU CELLS/CAPSULE PO SCH ×3 (00:19→20:38)
[2017-10-20] MEDS: Melatonin 3mg tablet PO SCH ×2 (00:19→20:38)
[2017-10-20] MEDS: cloNIDine 0.1 mg tablet PO SCH ×4 (00:19→20:38)
[2017-10-20] MEDS: rifampin 300mg capsule PO SCH ×3 (00:20→20:41)
[2017-10-20] MEDS: normal saline 1000ml 1,000 ML IV SCH ×2 (04:25→14:52)
[2017-10-20] MEDS: ondansetron/PF 4mg/2ml inj IV PRN ×3 (05:42→23:09)
[2017-10-20 06:27] LABS: BASOPHILS % (AUTO) 0.4 % (0-1); EOSINOPHILS # (AUTO) 0.1 X10'3 (0-0.9); EOSINOPHILS % (AUTO) 1.1 % (0-6); HEMATOCRIT 24.2 % (42.0-52.0); HEMOGLOBIN 8.1 g/dl (14.0-17.9); LYMPHOCYTES # (AUTO) 1.3 X10'3 (1.1-4.8); LYMPHOCYTES % (AUTO) 12.7 % (21-51); MEAN CORPUSCULAR HEMOGLOBIN 27.8 PG (27.0-31.0); MEAN CORPUSCULAR HGB CONC 33.6 % (33.0-36.5); MEAN CORPUSCULAR VOLUME 82.6 FL (78-98); MEAN PLATELET VOLUME 9.2 FL (7.4-10.4); MONOCYTES # (AUTO) 0.5 X10'3 (0-0.9); NEUTROPHILS # (AUTO) 8.6 X10'3 (1.8-7.7); NEUTROPHILS % (AUTO) 80.8 % (42-75); PLATELET COUNT 90 X10'3 (140-440); RED BLOOD COUNT 2.92 X10'6 (4.70-6.10); WHITE BLOOD COUNT 10.6 X10'3 (4.5-11.0)
[2017-10-20 06:41] LABS: ALANINE AMINOTRANSFERASE 6 U/L (12-78); ALBUMIN 1.8 G/DL (3.4-5.0); ALBUMIN/GLOBULIN RATIO 0.2 (1.1-1.5); ALKALINE PHOSPHATASE 76 IU/L (46-116); ANION GAP 9 (8-16); ASPARTATE AMINO TRANSFERASE 6 U/L (10-37); BILIRUBIN,TOTAL 0.9 MG/DL (0.1-1.0); BLOOD UREA NITROGEN 12 MG/DL (7-18); BUN/CREATININE RATIO 7.8 (5.4-32.0); CALCIUM 7.9 MG/DL (8.5-10.1); CHLORIDE 100 MMOL/L (99-107); CREATININE 1.54 MG/DL (0.60-1.10); GLUCOSE 95 MG/DL (70-104); MAGNESIUM 1.8 MG/DL (1.5-2.4); PHOSPHORUS 4.9 MG/DL (2.3-4.5); POTASSIUM 3.9 MMOL/L (3.5-5.1); SODIUM 132 MMOL/L (135-145); TOTAL CARBON DIOXIDE 22.8 MMOL/L (24-32); TOTAL PROTEIN 9.5 G/DL (6.4-8.2); eGFR 54 ML/MIN
[2017-10-20 07:00] VITALS: BP 123/77
[2017-10-20] MEDS: buprenorphine/naloxone 2-0.5mg sublingual tablet SL SCH (08:06)
[2017-10-20] MEDS: gentamicin inj 80 MG in normal saline 100ml IV soln 98 ML IV SCH (08:06)
[2017-10-20 11:00] VITALS: BP 113/60
[2017-10-20 20:30] VITALS: BP 119/47
[2017-10-20] MEDS: CITALOpram 10mg tablet PO SCH (21:00)
[2017-10-20 22:57] VITALS: BP 123/68
[2017-10-21] MEDS: vancomycin inj 500 MG in normal saline 100ml IV soln 100 ML IV SCH ×2 (01:42→12:53)
[2017-10-21 06:05] LABS: BASOPHILS # (AUTO) 0.1 X10'3 (0-0.2); BASOPHILS % (AUTO) 0.6 % (0-1); EOSINOPHILS # (AUTO) 0.1 X10'3 (0-0.9); EOSINOPHILS % (AUTO) 1.4 % (0-6); HEMATOCRIT 22.2 % (42.0-52.0); HEMOGLOBIN 7.4 g/dl (14.0-17.9); LYMPHOCYTES # (AUTO) 1.3 X10'3 (1.1-4.8); LYMPHOCYTES % (AUTO) 13.1 % (21-51); MEAN CORPUSCULAR HEMOGLOBIN 27.5 PG (27.0-31.0); MEAN CORPUSCULAR HGB CONC 33.3 % (33.0-36.5); MEAN CORPUSCULAR VOLUME 82.6 FL (78-98); MEAN PLATELET VOLUME 9.2 FL (7.4-10.4); MONOCYTES # (AUTO) 0.8 X10'3 (0-0.9); MONOCYTES % (AUTO) 8.4 % (2-12); NEUTROPHILS # (AUTO) 7.6 X10'3 (1.8-7.7); NEUTROPHILS % (AUTO) 76.5 % (42-75); PLATELET COUNT 101 X10'3 (140-440); RED BLOOD COUNT 2.69 X10'6 (4.70-6.10); RED CELL DISTRIBUTION WIDTH 16.9 % (11.5-14.5); WHITE BLOOD COUNT 9.9 X10'3 (4.5-11.0)
[2017-10-21 06:46] LABS: ALANINE AMINOTRANSFERASE 10 U/L (12-78); ALBUMIN 1.8 G/DL (3.4-5.0); ALBUMIN/GLOBULIN RATIO 0.2 (1.1-1.5); ALKALINE PHOSPHATASE 62 IU/L (46-116); ANION GAP 10 (8-16); ASPARTATE AMINO TRANSFERASE 12 U/L (10-37); BILIRUBIN,TOTAL 0.7 MG/DL (0.1-1.0); BLOOD UREA NITROGEN 14 MG/DL (7-18); BUN/CREATININE RATIO 8.9 (5.4-32.0); CALCIUM 7.7 MG/DL (8.5-10.1); CHLORIDE 99 MMOL/L (99-107); CREATININE 1.58 MG/DL (0.60-1.10); MAGNESIUM 1.7 MG/DL (1.5-2.4); POTASSIUM 4.2 MMOL/L (3.5-5.1); SODIUM 132 MMOL/L (135-145); TOTAL CARBON DIOXIDE 22.9 MMOL/L (24-32); TOTAL PROTEIN 9.2 G/DL (6.4-8.2); eGFR 52 ML/MIN
[2017-10-21 06:50] LABS: GLUCOSE 100 MG/DL (70-104)
[2017-10-21 07:00] VITALS: BP 123/64
[2017-10-21] MEDS: lactobacillus rhamnosus 10,000 MMU CELLS/CAPSULE PO SCH ×2 (07:44→20:29)
[2017-10-21] MEDS: buprenorphine/naloxone 2-0.5mg sublingual tablet SL SCH (07:44)
[2017-10-21] MEDS: cloNIDine 0.1 mg tablet PO SCH ×3 (07:44→20:30)
[2017-10-21] MEDS: rifampin 300mg capsule PO SCH ×2 (07:44→20:30)
[2017-10-21 11:12] VITALS: BP 129/69
[2017-10-21] MEDS ORDERED: VANCOMYCIN LEVEL IV ONE (12:30)
[2017-10-21] MEDS: normal saline 1000ml 1,000 ML IV SCH (12:53)
[2017-10-21 19:50] VITALS: BP 132/77
[2017-10-21] MEDS: Melatonin 3mg tablet PO SCH (20:30)
[2017-10-21] MEDS: CITALOpram 10mg tablet PO SCH (21:00)
[2017-10-22] VITALS: BP 128/78
[2017-10-22] MEDS: vancomycin inj 500 MG in normal saline 100ml IV soln 100 ML IV SCH ×2 (01:04→13:09)
[2017-10-22] MEDS: ondansetron/PF 4mg/2ml inj IV PRN ×3 (03:15→19:19)
[2017-10-22 05:53] LABS: BASOPHILS # (AUTO) 0.1 X10'3 (0-0.2); BASOPHILS % (AUTO) 0.6 % (0-1); EOSINOPHILS # (AUTO) 0.2 X10'3 (0-0.9); EOSINOPHILS % (AUTO) 1.6 % (0-6); HEMATOCRIT 23.6 % (42.0-52.0); HEMOGLOBIN 7.8 g/dl (14.0-17.9); LYMPHOCYTES # (AUTO) 1.4 X10'3 (1.1-4.8); LYMPHOCYTES % (AUTO) 11.5 % (21-51); MEAN CORPUSCULAR HEMOGLOBIN 27.6 PG (27.0-31.0); MEAN CORPUSCULAR HGB CONC 33.1 % (33.0-36.5); MEAN CORPUSCULAR VOLUME 83.5 FL (78-98); MEAN PLATELET VOLUME 9.2 FL (7.4-10.4); MONOCYTES # (AUTO) 0.8 X10'3 (0-0.9); MONOCYTES % (AUTO) 6.1 % (2-12); NEUTROPHILS # (AUTO) 9.9 X10'3 (1.8-7.7); NEUTROPHILS % (AUTO) 80.2 % (42-75); PLATELET COUNT 122 X10'3 (140-440); RED BLOOD COUNT 2.83 X10'6 (4.70-6.10); RED CELL DISTRIBUTION WIDTH 16.8 % (11.5-14.5); WHITE BLOOD COUNT 12.4 X10'3 (4.5-11.0)
[2017-10-22 06:38] LABS: ANION GAP 8 (8-16); BLOOD UREA NITROGEN 20 MG/DL (7-18); BUN/CREATININE RATIO 10.7 (5.4-32.0); CALCIUM 8.2 MG/DL (8.5-10.1); CHLORIDE 99 MMOL/L (99-107); CREATININE 1.87 MG/DL (0.60-1.10); PHOSPHORUS 6.6 MG/DL (2.3-4.5); SODIUM 132 MMOL/L (135-145); TOTAL CARBON DIOXIDE 24.7 MMOL/L (24-32); eGFR 43 ML/MIN
[2017-10-22 06:40] LABS: GLUCOSE 113 MG/DL (70-104)
[2017-10-22 07:00] VITALS: BP 109/69
[2017-10-22] MEDS: rifampin 300mg capsule PO SCH ×2 (08:07→20:59)
[2017-10-22] MEDS: cloNIDine 0.1 mg tablet PO SCH ×3 (08:14→20:59)
[2017-10-22] MEDS: buprenorphine/naloxone 2-0.5mg sublingual tablet SL SCH (08:14)
[2017-10-22] MEDS: lactobacillus rhamnosus 10,000 MMU CELLS/CAPSULE PO SCH ×2 (08:14→20:59)
[2017-10-22] MEDS ORDERED: diphenoxylate/atropine tablet (Lomotil) PO PRN (09:25)
[2017-10-22 11:00] VITALS: BP 110/70
[2017-10-22] MEDS: normal saline 1000ml 1,000 ML IV SCH (16:25)
[2017-10-22 19:50] VITALS: BP 146/82
[2017-10-22] MEDS: Melatonin 3mg tablet PO SCH (20:59)
[2017-10-22] MEDS: CITALOpram 10mg tablet PO SCH (21:00)
[2017-10-22 23:45] VITALS: BP 107/65
[2017-10-23] MEDS: vancomycin inj 500 MG in normal saline 100ml IV soln 100 ML IV SCH ×2 (00:54→14:14)
[2017-10-23 05:50] LABS: BASOPHILS # (AUTO) 0.1 X10'3 (0-0.2); EOSINOPHILS # (AUTO) 0.1 X10'3 (0-0.9); EOSINOPHILS % (AUTO) 1.6 % (0-6); LYMPHOCYTES # (AUTO) 1.5 X10'3 (1.1-4.8); LYMPHOCYTES % (AUTO) 16.6 % (21-51); MEAN CORPUSCULAR HEMOGLOBIN 27.8 PG (27.0-31.0); MEAN CORPUSCULAR HGB CONC 33.8 % (33.0-36.5); MEAN CORPUSCULAR VOLUME 82.4 FL (78-98); MEAN PLATELET VOLUME 9.1 FL (7.4-10.4); MONOCYTES # (AUTO) 0.7 X10'3 (0-0.9); MONOCYTES % (AUTO) 7.8 % (2-12); NEUTROPHILS # (AUTO) 6.5 X10'3 (1.8-7.7); PLATELET COUNT 108 X10'3 (140-440); RED CELL DISTRIBUTION WIDTH 16.4 % (11.5-14.5)
[2017-10-23 06:19] LABS: HEMATOCRIT 20.6 % (42.0-52.0)
[2017-10-23 06:38] LABS: ALANINE AMINOTRANSFERASE 9 U/L (12-78); ALBUMIN 1.9 G/DL (3.4-5.0); ALBUMIN/GLOBULIN RATIO 0.3 (1.1-1.5); ALKALINE PHOSPHATASE 79 IU/L (46-116); ANION GAP 7 (8-16); ASPARTATE AMINO TRANSFERASE 8 U/L (10-37); BILIRUBIN,TOTAL 0.6 MG/DL (0.1-1.0); BLOOD UREA NITROGEN 24 MG/DL (7-18); BUN/CREATININE RATIO 11.8 (5.4-32.0); CALCIUM 8.1 MG/DL (8.5-10.1); CHLORIDE 100 MMOL/L (99-107); CREATININE 2.04 MG/DL (0.60-1.10); MAGNESIUM 1.8 MG/DL (1.5-2.4); PHOSPHORUS 6.4 MG/DL (2.3-4.5); POTASSIUM 3.9 MMOL/L (3.5-5.1); SODIUM 132 MMOL/L (135-145); TOTAL CARBON DIOXIDE 25.3 MMOL/L (24-32); TOTAL PROTEIN 9.2 G/DL (6.4-8.2); eGFR 39 ML/MIN
[2017-10-23 06:44] LABS: GLUCOSE 102 MG/DL (70-104)
[2017-10-23 07:46] VITALS: BP 116/64
[2017-10-23] MEDS: cloNIDine 0.1 mg tablet PO SCH ×3 (09:58→21:00)
[2017-10-23] MEDS: rifampin 300mg capsule PO SCH ×2 (09:58→19:26)
[2017-10-23] MEDS: lactobacillus rhamnosus 10,000 MMU CELLS/CAPSULE PO SCH ×2 (09:58→19:26)
[2017-10-23] MEDS: buprenorphine/naloxone 2-0.5mg sublingual tablet SL SCH (09:59)
[2017-10-23 11:00] VITALS: BP 119/62
[2017-10-23] MEDS: normal saline 1000ml 1,000 ML IV SCH ×2 (12:25→14:15)
[2017-10-23] MEDS ORDERED: VANCOMYCIN LEVEL IV ONE (12:30)
[2017-10-23 18:19] LABS: FERRITIN 228 NG/ML (26-388)
[2017-10-23 18:22] LABS: % IRON SATURATION 35 % (11-46); IRON 49 UG/DL (53-167); TOTAL IRON BINDING CAPACITY 141 UG/DL (259-388)
[2017-10-23 19:00] VITALS: BP 106/65
[2017-10-23] MEDS: Melatonin 3mg tablet PO SCH (20:52)
[2017-10-23] MEDS: CITALOpram 10mg tablet PO SCH (21:00)
[2017-10-24] VITALS: BP 113/67
[2017-10-24] MEDS: vancomycin inj 500 MG in normal saline 100ml IV soln 100 ML IV SCH ×2 (00:38→13:08)
[2017-10-24] MEDS: normal saline 1000ml 1,000 ML IV SCH ×2 (04:14→22:16)
[2017-10-24 05:35] LABS: BASOPHILS # (AUTO) 0.1 X10'3 (0-0.2); BASOPHILS % (AUTO) 1.5 % (0-1); EOSINOPHILS # (AUTO) 0.1 X10'3 (0-0.9); EOSINOPHILS % (AUTO) 1.9 % (0-6); HEMATOCRIT 22.5 % (42.0-52.0); HEMOGLOBIN 7.6 g/dl (14.0-17.9); LYMPHOCYTES # (AUTO) 1.7 X10'3 (1.1-4.8); LYMPHOCYTES % (AUTO) 22.3 % (21-51); MEAN CORPUSCULAR HEMOGLOBIN 27.6 PG (27.0-31.0); MEAN CORPUSCULAR HGB CONC 33.7 % (33.0-36.5); MEAN CORPUSCULAR VOLUME 81.8 FL (78-98); MONOCYTES # (AUTO) 0.5 X10'3 (0-0.9); MONOCYTES % (AUTO) 6.2 % (2-12); NEUTROPHILS # (AUTO) 5.2 X10'3 (1.8-7.7); NEUTROPHILS % (AUTO) 68.1 % (42-75); PLATELET COUNT 138 X10'3 (140-440); RED BLOOD COUNT 2.76 X10'6 (4.70-6.10); WHITE BLOOD COUNT 7.7 X10'3 (4.5-11.0)
[2017-10-24 05:42] LABS: ALANINE AMINOTRANSFERASE 9 U/L (12-78); ALBUMIN 1.9 G/DL (3.4-5.0); ALBUMIN/GLOBULIN RATIO 0.3 (1.1-1.5); ALKALINE PHOSPHATASE 76 IU/L (46-116); ANION GAP 6 (8-16); ASPARTATE AMINO TRANSFERASE 9 U/L (10-37); BILIRUBIN,TOTAL 0.4 MG/DL (0.1-1.0); BLOOD UREA NITROGEN 25 MG/DL (7-18); BUN/CREATININE RATIO 13.4 (5.4-32.0); CALCIUM 8.2 MG/DL (8.5-10.1); CHLORIDE 102 MMOL/L (99-107); CREATININE 1.87 MG/DL (0.60-1.10); MAGNESIUM 1.8 MG/DL (1.5-2.4); PHOSPHORUS 5.6 MG/DL (2.3-4.5); POTASSIUM 4.2 MMOL/L (3.5-5.1); SODIUM 134 MMOL/L (135-145); TOTAL CARBON DIOXIDE 26.5 MMOL/L (24-32); TOTAL PROTEIN 9.2 G/DL (6.4-8.2); eGFR 43 ML/MIN
[2017-10-24 05:50] LABS: GLUCOSE 99 MG/DL (70-104)
[2017-10-24 07:00] VITALS: BP 117/76
[2017-10-24] MEDS: rifampin 300mg capsule PO SCH ×2 (08:11→20:22)
[2017-10-24] MEDS: cloNIDine 0.1 mg tablet PO SCH ×3 (08:11→21:00)
[2017-10-24] MEDS: lactobacillus rhamnosus 10,000 MMU CELLS/CAPSULE PO SCH ×2 (08:11→20:22)
[2017-10-24] MEDS: buprenorphine/naloxone 2-0.5mg sublingual tablet SL SCH (08:12)
[2017-10-24 11:00] VITALS: BP 115/72
[2017-10-24] MEDS: ferrous gluconate 324mg tablet PO SCH (17:22)
[2017-10-24 19:00] VITALS: BP 102/54
[2017-10-24] MEDS: Melatonin 3mg tablet PO SCH (20:22)
[2017-10-24] MEDS: CITALOpram 10mg tablet PO SCH (21:00)
[2017-10-25] VITALS: BP 135/71
[2017-10-25] MEDS: vancomycin inj 500 MG in normal saline 100ml IV soln 100 ML IV SCH ×2 (00:27→14:11)
[2017-10-25] MEDS: mag hydrox/Alum hydrox/simeth 30ml oral suspension PO PRN ×2 (00:30→19:00)
[2017-10-25 05:12] LABS: BASOPHILS # (AUTO) 0.1 X10'3 (0-0.2); BASOPHILS % (AUTO) 1.1 % (0-1); EOSINOPHILS # (AUTO) 0.1 X10'3 (0-0.9); EOSINOPHILS % (AUTO) 1.7 % (0-6); HEMATOCRIT 29.5 % (42.0-52.0); HEMOGLOBIN 9.8 g/dl (14.0-17.9); LYMPHOCYTES # (AUTO) 2.2 X10'3 (1.1-4.8); LYMPHOCYTES % (AUTO) 27.6 % (21-51); MEAN CORPUSCULAR HEMOGLOBIN 27.4 PG (27.0-31.0); MEAN CORPUSCULAR HGB CONC 33.1 % (33.0-36.5); MEAN CORPUSCULAR VOLUME 82.9 FL (78-98); MEAN PLATELET VOLUME 8.7 FL (7.4-10.4); MONOCYTES # (AUTO) 0.4 X10'3 (0-0.9); MONOCYTES % (AUTO) 5.7 % (2-12); NEUTROPHILS % (AUTO) 63.9 % (42-75); PLATELET COUNT 181 X10'3 (140-440); RED BLOOD COUNT 3.57 X10'6 (4.70-6.10); RED CELL DISTRIBUTION WIDTH 16.7 % (11.5-14.5); WHITE BLOOD COUNT 7.9 X10'3 (4.5-11.0)
[2017-10-25 05:53] LABS: ALBUMIN 2.4 G/DL (3.4-5.0); ANION GAP 10 (8-16); BILIRUBIN,TOTAL 0.5 MG/DL (0.1-1.0); BLOOD UREA NITROGEN 21 MG/DL (7-18); BUN/CREATININE RATIO 12.1 (5.4-32.0); CALCIUM 8.7 MG/DL (8.5-10.1); CHLORIDE 101 MMOL/L (99-107); CREATININE 1.73 MG/DL (0.60-1.10); MAGNESIUM 1.8 MG/DL (1.5-2.4); PHOSPHORUS 5.6 MG/DL (2.3-4.5); POTASSIUM 4.1 MMOL/L (3.5-5.1); SODIUM 134 MMOL/L (135-145); TOTAL CARBON DIOXIDE 22.8 MMOL/L (24-32); TOTAL PROTEIN 11.1 G/DL (6.4-8.2); eGFR 47 ML/MIN
[2017-10-25 05:54] LABS: ALANINE AMINOTRANSFERASE 10 U/L (12-78); ALBUMIN/GLOBULIN RATIO 0.3 (1.1-1.5); ALKALINE PHOSPHATASE 85 IU/L (46-116); ASPARTATE AMINO TRANSFERASE 9 U/L (10-37)
[2017-10-25 05:56] LABS: GLUCOSE 96 MG/DL (70-104)
[2017-10-25] MEDS: buprenorphine/naloxone 2-0.5mg sublingual tablet SL SCH (09:09)
[2017-10-25] MEDS: lactobacillus rhamnosus 10,000 MMU CELLS/CAPSULE PO SCH ×2 (09:09→19:00)
[2017-10-25] MEDS: cloNIDine 0.1 mg tablet PO SCH ×3 (09:09→21:40)
[2017-10-25] MEDS: rifampin 300mg capsule PO SCH ×2 (09:10→19:00)
[2017-10-25] MEDS: ferrous gluconate 324mg tablet PO SCH ×3 (09:10→16:24)
[2017-10-25 09:15] VITALS: BP 121/74
[2017-10-25 13:00] VITALS: BP 127/69
[2017-10-25 19:00] VITALS: BP 127/78
[2017-10-25] MEDS: CITALOpram 10mg tablet PO SCH (21:00)
[2017-10-25] MEDS: Melatonin 3mg tablet PO SCH (21:40)
[2017-10-26] VITALS: BP 115/69
[2017-10-26] MEDS: normal saline 1000ml 1,000 ML IV SCH ×2 (00:25→20:11)
[2017-10-26] MEDS: vancomycin inj 500 MG in normal saline 100ml IV soln 100 ML IV SCH ×3 (00:26→22:24)
[2017-10-26 04:43] LABS: BASOPHILS # (AUTO) 0.1 X10'3 (0-0.2); BASOPHILS % (AUTO) 1.3 % (0-1); EOSINOPHILS # (AUTO) 0.1 X10'3 (0-0.9); EOSINOPHILS % (AUTO) 1.4 % (0-6); HEMATOCRIT 25.4 % (42.0-52.0); HEMOGLOBIN 8.6 g/dl (14.0-17.9); LYMPHOCYTES # (AUTO) 1.7 X10'3 (1.1-4.8); LYMPHOCYTES % (AUTO) 21.5 % (21-51); MEAN CORPUSCULAR HEMOGLOBIN 27.7 PG (27.0-31.0); MEAN CORPUSCULAR HGB CONC 33.6 % (33.0-36.5); MEAN CORPUSCULAR VOLUME 82.2 FL (78-98); MEAN PLATELET VOLUME 8.2 FL (7.4-10.4); MONOCYTES # (AUTO) 0.7 X10'3 (0-0.9); MONOCYTES % (AUTO) 8.3 % (2-12); NEUTROPHILS # (AUTO) 5.4 X10'3 (1.8-7.7); NEUTROPHILS % (AUTO) 67.5 % (42-75); PLATELET COUNT 185 X10'3 (140-440); RED BLOOD COUNT 3.09 X10'6 (4.70-6.10); RED CELL DISTRIBUTION WIDTH 16.2 % (11.5-14.5)
[2017-10-26 05:52] LABS: ALANINE AMINOTRANSFERASE 7 U/L (12-78); ALBUMIN 2.3 G/DL (3.4-5.0); ALBUMIN/GLOBULIN RATIO 0.3 (1.1-1.5); ALKALINE PHOSPHATASE 82 IU/L (46-116); ANION GAP 9 (8-16); ASPARTATE AMINO TRANSFERASE 13 U/L (10-37); BILIRUBIN,TOTAL 0.4 MG/DL (0.1-1.0); BLOOD UREA NITROGEN 22 MG/DL (7-18); BUN/CREATININE RATIO 13.4 (5.4-32.0); CALCIUM 8.7 MG/DL (8.5-10.1); CHLORIDE 100 MMOL/L (99-107); CREATININE 1.64 MG/DL (0.60-1.10); MAGNESIUM 1.9 MG/DL (1.5-2.4); PHOSPHORUS 5.2 MG/DL (2.3-4.5); POTASSIUM 4.3 MMOL/L (3.5-5.1); SODIUM 133 MMOL/L (135-145); TOTAL CARBON DIOXIDE 23.7 MMOL/L (24-32); TOTAL PROTEIN 10.3 G/DL (6.4-8.2); eGFR 50 ML/MIN
[2017-10-26 06:02] LABS: GLUCOSE 95 MG/DL (70-104)
[2017-10-26] MEDS: ferrous gluconate 324mg tablet PO SCH ×3 (07:01→17:15)
[2017-10-26] MEDS: lactobacillus rhamnosus 10,000 MMU CELLS/CAPSULE PO SCH ×2 (07:01→20:10)
[2017-10-26] MEDS: cloNIDine 0.1 mg tablet PO SCH ×3 (07:01→20:10)
[2017-10-26] MEDS: buprenorphine/naloxone 2-0.5mg sublingual tablet SL SCH (07:01)
[2017-10-26] MEDS: rifampin 300mg capsule PO SCH ×2 (07:02→20:10)
[2017-10-26 08:59] VITALS: BP 126/73
[2017-10-26 11:50] VITALS: BP 116/69
[2017-10-26 19:00] VITALS: BP 123/74
[2017-10-26] MEDS: Melatonin 3mg tablet PO SCH (20:10)
[2017-10-26] MEDS: CITALOpram 10mg tablet PO SCH (21:00)
[2017-10-27] VITALS: BP 112/69
[2017-10-27 04:49] LABS: BASOPHILS # (AUTO) 0.1 X10'3 (0-0.2); BASOPHILS % (AUTO) 1.4 % (0-1); EOSINOPHILS # (AUTO) 0.2 X10'3 (0-0.9); EOSINOPHILS % (AUTO) 1.9 % (0-6); HEMATOCRIT 24.9 % (42.0-52.0); HEMOGLOBIN 8.5 g/dl (14.0-17.9); LYMPHOCYTES # (AUTO) 1.9 X10'3 (1.1-4.8); LYMPHOCYTES % (AUTO) 23.2 % (21-51); MEAN CORPUSCULAR HEMOGLOBIN 27.9 PG (27.0-31.0); MEAN CORPUSCULAR VOLUME 82.1 FL (78-98); MEAN PLATELET VOLUME 8.1 FL (7.4-10.4); MONOCYTES # (AUTO) 0.6 X10'3 (0-0.9); MONOCYTES % (AUTO) 7.6 % (2-12); NEUTROPHILS # (AUTO) 5.4 X10'3 (1.8-7.7); NEUTROPHILS % (AUTO) 65.9 % (42-75); PLATELET COUNT 199 X10'3 (140-440); RED BLOOD COUNT 3.03 X10'6 (4.70-6.10); RED CELL DISTRIBUTION WIDTH 16.4 % (11.5-14.5); WHITE BLOOD COUNT 8.2 X10'3 (4.5-11.0)
[2017-10-27 05:22] LABS: ALANINE AMINOTRANSFERASE 8 U/L (12-78); ALBUMIN 2.3 G/DL (3.4-5.0); ALBUMIN/GLOBULIN RATIO 0.3 (1.1-1.5); ALKALINE PHOSPHATASE 85 IU/L (46-116); ANION GAP 8 (8-16); ASPARTATE AMINO TRANSFERASE 14 U/L (10-37); BILIRUBIN,TOTAL 0.4 MG/DL (0.1-1.0); BLOOD UREA NITROGEN 22 MG/DL (7-18); BUN/CREATININE RATIO 12.9 (5.4-32.0); CALCIUM 8.8 MG/DL (8.5-10.1); CHLORIDE 100 MMOL/L (99-107); PHOSPHORUS 6.1 MG/DL (2.3-4.5); POTASSIUM 4.3 MMOL/L (3.5-5.1); SODIUM 131 MMOL/L (135-145); TOTAL CARBON DIOXIDE 23.1 MMOL/L (24-32); TOTAL PROTEIN 10.3 G/DL (6.4-8.2); eGFR 48 ML/MIN
[2017-10-27 05:24] LABS: GLUCOSE 91 MG/DL (70-104)
[2017-10-27 07:00] VITALS: BP 119/71
[2017-10-27] MEDS: cloNIDine 0.1 mg tablet PO SCH ×3 (09:21→22:24)
[2017-10-27] MEDS: ferrous gluconate 324mg tablet PO SCH ×3 (09:21→17:54)
[2017-10-27] MEDS: rifampin 300mg capsule PO SCH ×2 (09:21→22:23)
[2017-10-27] MEDS: buprenorphine/naloxone 2-0.5mg sublingual tablet SL SCH (09:21)
[2017-10-27] MEDS: lactobacillus rhamnosus 10,000 MMU CELLS/CAPSULE PO SCH ×2 (09:21→22:24)
[2017-10-27] MEDS: vancomycin inj 500 MG in normal saline 100ml IV soln 100 ML IV SCH ×2 (09:23→22:23)
[2017-10-27 11:30] VITALS: BP 125/75
[2017-10-27] MEDS: normal saline 1000ml 1,000 ML IV SCH (17:55)
[2017-10-27 18:00] VITALS: BP 115/87
[2017-10-27] MEDS: CITALOpram 10mg tablet PO SCH (22:24)
[2017-10-27] MEDS: Melatonin 3mg tablet PO SCH (22:24)
[2017-10-28] VITALS: BP 109/65
[2017-10-28] MEDS: cloNIDine 0.1 mg tablet PO SCH ×2 (07:25→13:38)
[2017-10-28] MEDS: lactobacillus rhamnosus 10,000 MMU CELLS/CAPSULE PO SCH (07:25)
[2017-10-28] MEDS: rifampin 300mg capsule PO SCH (07:25)
[2017-10-28] MEDS: buprenorphine/naloxone 2-0.5mg sublingual tablet SL SCH (07:25)
[2017-10-28 07:30] VITALS: BP 108/65
[2017-10-28] MEDS: ferrous gluconate 324mg tablet PO SCH ×2 (07:30→11:35)
[2017-10-28] MEDS: vancomycin inj 500 MG in normal saline 100ml IV soln 100 ML IV SCH (11:35)
[2017-10-28] MEDS: normal saline 1000ml 1,000 ML IV SCH (11:35)
[2017-10-28 12:20] VITALS: BP 119/71
[2017-10-28] MEDS ORDERED: FERGLU300T PO (13:02)
[2017-10-28] MEDS ORDERED: MELA3TAB PO (13:02)
[2017-10-28] MEDS ORDERED: CLON0.1T20 PO (13:02)
[2017-10-28] MEDS ORDERED: LACT1CAP26 PO (13:02)
== END 2017-10-28 14:06 | disposition home or self-care (01) | DRG 206 ==
LOC: ER 17:30 → ED HOLD 22:43 → PCU 3S 23:40 → SUR 3N 10-15 04:12
PROVIDERS: ADMIT Internal Medicine; ATTEND Family Medicine
PROC: 02HV33Z Insertion of Infusion Device into Superior Vena Cava, Percutaneous Approach (ICD-10-PCS; principal; 2017-10-27)
PROC: B548ZZA Ultrasonography of Superior Vena Cava, Guidance (ICD-10-PCS; 2017-10-27)
DX: T82.6XXA Infection and inflammatory reaction due to cardiac valve prosthesis, initial encounter (principal); A41.02 Sepsis due to Methicillin resistant Staphylococcus aureus; I76 Septic arterial embolism; I28.1 Aneurysm of pulmonary artery; N17.9 Acute kidney failure, unspecified; D69.6 Thrombocytopenia, unspecified; E87.1 Hypo-osmolality and hyponatremia; I33.0 Acute and subacute infective endocarditis; R65.20 Severe sepsis without septic shock; F15.10 Other stimulant abuse, uncomplicated; B19.20 Unspecified viral hepatitis C without hepatic coma; K29.70 Gastritis, unspecified, without bleeding; Y83.1 Surgical operation with implant of artificial internal device as the cause of abnormal reaction of the patient, or of later complication, without mention of misadventure at the time of the procedure; E86.0 Dehydration; F11.20 Opioid dependence, uncomplicated; D64.9 Anemia, unspecified; F17.200 Nicotine dependence, unspecified, uncomplicated; F32.9 Major depressive disorder, single episode, unspecified; F41.1 Generalized anxiety disorder; G47.00 Insomnia, unspecified; Z91.19 Patient's noncompliance with other medical treatment and regimen; Z56.0 Unemployment, unspecified; Z79.899 Other long term (current) drug therapy; Z79.01 Long term (current) use of anticoagulants; Z79.82 Long term (current) use of aspirin; Y92.89 Other specified places as the place of occurrence of the external cause
CPT/HCPCS: 36415; 36569; 71045; 71250; 74176; 76937; 80048; 80053; 80170; 80202; 80305; 81001; 82272; 82607; 82728; 82746; 83540; 83550; 83605; 83735; 84100; 84132; 84145; 84484; 85025; 85610; 85730; 86140; 86885; 86900; 86901; 87040; 87070; 87077; 87088; 87186; 93005; 93308; 93975; 96361; 96365; 96367; 96375; 99285; A4353; A6449; C9113; J0780; J1580; J1644; J2060; J2405; J2543; J3370; J7030; Q0177; Q9963